=== PATIENT | male | born 1940 | race Caucasian/White ===

== ENCOUNTER → 2020-01-24 15:38 | Outpatient (CLI) | payer MEDICARE, SELFPAY ==
--- NOTE | ~2020-01-24 | MR_ITS ---
EXAMINATION: MR lumbar spine wo con DATE: 01/24/2020 16:20 INDICATION: Lumbar radiculopathy. TECHNIQUE: Magnetic resonance imaging (MRI) of the lumbar spine was performed without intravenous con trast. Sequences included sagittal T2-weighted FSE, sagittal T2-weighted FS FSE, sagittal T1-weighted FSE, and axial T2-weighted FSE. COMPARISON: Lumbar spine MRI 11/30/2016 FINDINGS: There is 9 degrees dextrocurvature of lumbar spine. There is 4 mm retrolisthesis of L1 on L 2 and L2 on L3, 3 mm anterolisthesis of L3 on L4, 9 mm anterolisthesis of L4 on L5, and 3 mm retrolis thesis of L5 on S1. There is severely decreased disc height from L1-L2 through L3-L4, moderately decr eased disc height at L4-L5, and severely decreased disc height at L5-S1. The distal spinal cord signa l intensity is normal. The conus medullaris is at L1-L2. The following disc levels are specifically d iscussed: L1-L2: The disc is bulging and has an annular fissure. There is moderate right and mild left facet marlon int osteoarthritis. There is mild bilateral neural foraminal stenosis. There is mild central canal st enosis. L2-L3: The disc is bulging and has an annular fissure. There is moderate right and mild left facet marlon int osteoarthritis. There is mild right and moderate left neural foraminal stenosis. There is mild ce ntral canal stenosis. L3-L4: The disc is bulging and has an annular fissure. There is severe bilateral facet joint osteoart hritis. There is mild bilateral neural foraminal stenosis. There is mild central canal stenosis. L4-L5: The disc is bulging and has an annular fissure. There is severe bilateral facet joint osteoart hritis. There is mild bilateral neural foraminal stenosis. There is severe central canal stenosis. L5-S1: The disc is bulging and has an annular fissure. There is mild bilateral facet joint osteoarthr itis. There is mild bilateral neural foraminal stenosis. There is mild central canal stenosis. IMPRESSION: 1. Severe lumbar spondylosis, worsened from 11/30/2016. Reviewed, dictated and finalized at location A.
== END ==
PROVIDERS: PCP Internal Medicine; Visit Provider Nurse Practitioner Adult Health
DX: M47.26 Other spondylosis with radiculopathy, lumbar region (principal)
CPT/HCPCS: 72148

== ENCOUNTER 2020-03-07 15:04 | Outpatient (CLI) | payer MEDICARE, SELFPAY ==
--- NOTE | ~2020-03-07 | XR_ITS ---
EXAMINATION: XR hip RT min 3V w AP pelvis INDICATION: Right hip pain TECHNIQUE: AP view of the pelvis and three views of the right hip were obtained. COMPARISON: None available FINDINGS: Bone alignment is normal. There is no fracture. There is severe spondylosis of the visualiz ed lumbar spine. Phleboliths are noted in the pelvis. IMPRESSION: 1. No acute osseous abnormality. Reviewed, dictated and finalized at location A.
--- NOTE | ~2020-03-07 | XR_ITS ---
EXAMINATION: XR lumbar spine 6V w bending DATE: 03/07/2020 15:44 INDICATION: Back pain after fall TECHNIQUE: Anteroposterior, lateral in neutral, flexion and extension, and bilateral oblique views of the lumbar spine, and cone-down lateral view of the lumbosacral junction were obtained. COMPARISON: MRI, 01/24/2020 FINDINGS: There are 12 mm of anterolisthesis of L4 on L5. There are 4 mm of retrolisthesis of L2 on L 3. No laxity is present with flexion or extension. There is severe loss of intervertebral disc space height at L1-2, L2-3, L3-4, and L5-S1. There is moderate loss of intervertebral disc space height at L4-5. The vertebral body heights are normal. Small degenerative osteophytes project from the anterior endplates of multiple vertebral bodies. Calcified atherosclerosis is noted. There is severe facet os teoarthritis throughout the lumbar spine. Calcified atherosclerosis is noted. There is large volume o f colonic stool. IMPRESSION: 1. Severe lumbar spondylosis without acute findings or significant interval change. Reviewed, dictated and finalized at location A. IMPRESSION: 1. Severe lumbar spondylosis without acute findings or significant interval rosanne nge.
== END 2020-03-07 15:05 | disposition home or self-care (01) ==
PROVIDERS: PCP Internal Medicine; Visit Provider Physician Assistant
DX: M25.551 Pain in right hip (principal); M47.896 Other spondylosis, lumbar region
CPT/HCPCS: 72114; 73502

== ENCOUNTER 2020-03-11 12:40 | Outpatient (CLI) | payer MEDICARE, SELFPAY ==
--- NOTE | ~2020-03-11 | MR_ITS ---
EXAMINATION: MR brain/brain stem wo con DATE: 03/11/2020 13:46 INDICATION: Unspecified injury of head, initial encounter. TECHNIQUE: Magnetic resonance imaging (MRI) of the brain and brainstem was performed without intraven ous contrast. Sequences included sagittal and axial T1-weighted FSE, axial diffusion-weighted FS EPI, axial T2*-weighted GRE, axial T2-weighted FLAIR Propeller, and axial T2-weighted Propeller. Apparent diffusion coefficient (ADC) maps were created. COMPARISON: None. FINDINGS: There are scattered areas of nonspecific increased T2-weighted signal intensity in the cere bral white matter, which is within normal limits for the patient's age. There is no intracranial hemo rrhage, acute infarction, or abnormal intracranial mass lesion. The ventricles are normal in size. Th ere is mild mucosal thickening in the ethmoid sinuses. There are likely changes of ocular lens replac ement surgeries. The mastoid air cells are normal. IMPRESSION: 1. Normal aging brain. Reviewed, dictated and finalized at location B. IMPRESSION: 1. Normal aging brain.
== END 2020-03-11 12:41 | disposition home or self-care (01) ==
PROVIDERS: PCP Internal Medicine; Visit Provider Physician Assistant
DX: S09.90XA Unspecified injury of head, initial encounter (principal)
CPT/HCPCS: 70551

== ENCOUNTER 2020-04-26 07:54 | Outpatient (NON) | payer MEDICARE, SELFPAY ==
[2020-04-26 18:59] LABS: SARS-CoV-2 RNA PCR Negative
== END 2020-04-26 07:55 ==
PROVIDERS: PCP Internal Medicine
DX: Z01.812 Encounter for preprocedural laboratory examination (principal); Z20.828 Contact with and (suspected) exposure to other viral communicable diseases
CPT/HCPCS: 87635; C9803; U0003

== ENCOUNTER 2020-09-17 13:50 | Outpatient (CLI) | payer MEDICARE, SELFPAY | END 2020-09-17 13:51 | disposition home or self-care (01) | LOC: ANHCOVIDVC 13:50 | PROVIDERS: PCP Internal Medicine | DX: Z23 Encounter for immunization (principal) | CPT/HCPCS: 0001A; 91300 ==

== ENCOUNTER 2020-10-08 13:41 | Outpatient (CLI) | payer MEDICARE, SELFPAY | END 2020-10-08 13:42 | disposition home or self-care (01) | LOC: ANHCOVIDVC 13:41 | PROVIDERS: PCP Internal Medicine | DX: Z23 Encounter for immunization (principal) | CPT/HCPCS: 0002A; 91300 ==

== ENCOUNTER → 2020-12-12 12:29 | Outpatient (CLI) | payer MEDICARE, SELFPAY ==
--- NOTE | ~2020-12-12 | MR_ITS ---
. EXAMINATION: MR lumbar spine wo con DATE: 12/12/2020 13:17 INDICATION: Lumbar radiculopathy. TECHNIQUE: Magnetic resonance imaging (MRI) of the lumbar spine was performed without intravenous con trast. Sequences included sagittal T2-weighted FSE, sagittal STIR FSE, sagittal T1-weighted FSE, and axial T2-weighted FSE. COMPARISON: Lumbar spine MRI 01/24/2020 FINDINGS: There is 9 degrees dextrocurvature of lumbar spine. There is 3 mm anterolisthesis of L1 on L2 and L2 on L3, 3 mm anterolisthesis of L3 on L4, 6 mm anterolisthesis of L4 on L5, and 3 mm retroli sthesis of L5 on S1. There are changes of posterior fusion procedure from L3 to L5 with pedicle screw s. Vertebral body heights are normal. There is severely decreased disc height at L1-L2, L2-L3, and L5 -S1, moderately decreased disc height at L3-L4, and mildly decreased disc height at L4-L5 with endpla te remodeling. The distal spinal cord signal intensity is normal. The conus medullaris is at L1. The following disc levels are specifically discussed: L1-L2: The disc is bulging. There is severe bilateral facet joint osteoarthritis. There is moderate r ight and mild left neural foraminal stenosis. There is mild central canal stenosis. L2-L3: The disc is bulging. There is severe bilateral facet joint osteoarthritis. There is moderate b ilateral neural foraminal stenosis. There is mild central canal stenosis. L3-L4: The disc is bulging and has an annular fissure. There is no facet joint hypertrophy. There is mild bilateral neural foraminal stenosis. There is no central canal stenosis. There is posterior deco mpression. L4-L5: The disc is bulging and has an annular fissure. There is moderate bilateral facet joint hypert rophy. There is mild bilateral neural foraminal stenosis. There is no central canal stenosis. There i s posterior decompression. L5-S1: The disc is bulging and has an annular fissure. There is severe bilateral facet joint osteoart hritis. There is mild bilateral neural foraminal stenosis. There is mild central canal stenosis. IMPRESSION: 1. Severe lumbar spondylosis. 2. Posterior fusion procedure from L3 to L5. Reviewed, dictated and finalized at location A.
== END ==
PROVIDERS: PCP Internal Medicine; Visit Provider Nurse Practitioner Adult Health
DX: M54.17 Radiculopathy, lumbosacral region (principal); M47.816 Spondylosis without myelopathy or radiculopathy, lumbar region; Z98.1 Arthrodesis status
CPT/HCPCS: 72148

== ENCOUNTER 2022-08-13 13:18 | Outpatient (CLI) | payer OTHER, SELFPAY ==
--- NOTE | ~2022-08-13 | CT_ITS ---
EXAMINATION: CT abdomen pelvis w con DATE: 08/13/2022 14:28 INDICATION: Diverticulitis TECHNIQUE: Computed tomography (CT) of the abdomen and pelvis was performed with 100 mL Omnipaque-350 intravenous contrast. Automated exposure control and iterative reconstruction technique were employe d. The dose-length product was 484.24 mGy-cm. COMPARISON: 12/16/2017 FINDINGS: Mild bibasilar atelectasis. Heart size is normal. Atherosclerotic coronary artery calcific location. No pericardial or pleural effusion. Mild gynecomastia. Focal hepatic steatosis at the ligamentum gianna s. Gallbladder, spleen, bilateral adrenal glands and kidneys are normal. Small likely dystrophic calc ific lesion at the head of the otherwise normal-appearing pancreas which could represent sequela of c hronic pancreatitis. Small bowel and appendix are normal. There is mild colonic diverticulosis with a sigmoid predominance. There is no adjacent inflammatory change to suggest diverticulitis. A short se gment of the proximal sigmoid colon extends into a relatively wide mouthed left indirect inguinal her marisa without obstruction. Small fat-containing right direct and indirect inguinal hernias. Prostatomeg adam which impresses upon the base of the bladder. There are few small bladder stones. No free intrape ritoneal gas or fluid. No pathologically enlarged abdominal or pelvic lymphadenopathy. Mild lumbar de xtrocurvature with severe spondylosis. L3 and L4 laminectomies with L3 L5 instrumented posterior spin al fusion with bilateral vertical nicci and pedicle screw fixations. 5 mm retrolisthesis L4 on L5. IMPRESSION: 1. Herniation of a small segment of nonobstructed sigmoid colon into a moderate-sized left inguinal h ernia. 2. Additional small fat-containing right direct and indirect inguinal hernias. 3. Sigmoid diverticulosis. 4. Prostatomegaly. 5. A few bladder stones. Reviewed, dictated and finalized at location B. [employer] IMPRESSION: 1. Herniation of a small segment of nonobstructed sigmoid colon into a moderate -sized left inguinal hernia. 2. Additional small fat-containing right direct and indirect inguinal hernias. 3. Sigmoid diverticulosis. 4. Prostatomegaly. 5. A few bladder stones.
[2022-08-13 14:20] LABS: Estimated Glomerular Filt Rate > 60
== END 2022-08-13 13:19 | disposition home or self-care (01) ==
PROVIDERS: PCP Internal Medicine; Visit Provider Internal Medicine
DX: K57.92 Diverticulitis of intestine, part unspecified, without perforation or abscess without bleeding (principal); K40.20 Bilateral inguinal hernia, without obstruction or gangrene, not specified as recurrent; N40.0 Benign prostatic hyperplasia without lower urinary tract symptoms; N21.0 Calculus in bladder
CPT/HCPCS: 74177; Q9967

== ENCOUNTER 2022-08-24 10:09 | Outpatient (CLI) | payer OTHER, SELFPAY ==
--- NOTE | 2022-08-24 10:19 | ECG_ITS ---
Measurements Intervals Basco Rate: 63 P: 51 LA: 209 QRS: 30 QRSD: 102 T: 28 QT: 401 QTc: 413 Interpretive Statements SINUS RHYTHM NO PREVIOUS ECG AVAILABLE FOR COMPARISON Electronically Signed On 08-24-2022 14:53:51 [employer]JECTS REPAIRER by Shawna Sharp M.D.
== END 2022-08-24 10:10 | disposition home or self-care (01) ==
LOC: ANHSURGERY 10:14
PROVIDERS: PCP Internal Medicine; Visit Provider Surgery
DX: Z01.818 Encounter for other preprocedural examination (principal); E78.00 Pure hypercholesterolemia, unspecified; K40.30 Unilateral inguinal hernia, with obstruction, without gangrene, not specified as recurrent
CPT/HCPCS: 36415; 86850; 86900; 86901; 93005

== ENCOUNTER 2022-08-25 00:59 | Day surgery (SDC) | payer OTHER, SELFPAY ==
--- NOTE | 2022-08-19 15:46 | PC.NURSE ---
Report to the Outpatient Waiting Room, entrance under the green pavilion located off [facility], at time __1100 on date ___08/27/22____. Planned Procedure Time: __1300 . Time changes happen often and if your time is changed the preop area will call you the afternoon before. - You and your visitor will be asked to self-screen and do not enter if you have any COVID symptoms. - Only one visitor is requested with a max of two and NO children visitors are allowed at this time. - The patient visitor may be requested to leave or wait in car when not with patient due to distancing restrictions. - A mask is optional within the hospital at this time. Patients may have clear liquids (water, carbonated beverages, clear teas, apple juice) until 3 hours prior to surgery with a maximum of 20 ounces. - No food from midnight until time of surgery - Infants may have breast milk until 4 hours before surgery, formula 6 hours prior to surgery. - Children will be allowed to drink immediately following surgery. If applicable, please bring a bottle or sippy cup to assist with drinking. Juice, water, soda, and popsicles are readily available. For infants on formula, please bring formula the day of surgery. Pacifiers are allowed. Take the following medications with a SIP of water the morning of surgery: __GABAPENTIN, HYDROCODONE IF NEEDED FOR PAIN.EYE DROPS DO NOT STOP ANY OF YOUR OTHER PRESCRIPTION MEDICATIONS PRIOR TO SURGERY ?EXCEPT THE FOLLOWING Medications to discontinue per physician ____ALL VITAMINS AND SUPPLEMENTS 3 DAYS PRE OP . LAST DOSE 08/23/22 HIBICLENS SHOWER MORNING OF SURGERY Please no make-up, nail australian, hairspray, perfume, deodorant, or body powder the day of surgery. No jewelry (including any body piercings) or valuables the day of surgery, leave them at home. Please take a shower or bath the night before, or the morning of, surgery with an antibacterial soap. Wear comfortable, loose fitting clothing. Children are encouraged to wear pajamas. - Jewelry must be removed prior to entering the operating room. Rings and piercings that are not removed may be cut off. - The hospital will not accept responsibility for valuables. - Please leave all valuables, including medications, at home the day of surgery. If you are going home after surgery, a licensed courtesy car driver must drive you home. - NO public transportation without another adult if you receive anesthesia. - We recommend that an adult stay with you for 24 hours following discharge. - We also recommend that you do not drive, make important decision, drink alcoholic beverages, or take any drugs that were not prescribed by your health care provider for at least 24 hours after your discharge time. For Pediatric surgeries, we recommend two adults accompany the child home. Follow any additional instructions given to you from your surgeon. If you or anyone in your household have experienced Covid symptoms in the past week, please notify your surgeon or the nurse liaison at the phone number below for possible testing. Telephone instructions given to __PATIENT and asked if any additional questions and then verbalized understanding. Patient advised to call surgeon office or pre surgery nurse liaison [phone] if any additional questions.
[2022-08-19 15:54] VITALS: BMI 23.1
--- NOTE | 2022-08-24 07:42 | PC.NURSE ---
Report to the Outpatient Waiting Room, entrance under the green pavilion located off [facility], at time __0930 on date __08/25/22 . Planned Procedure Time: 1130 . Time changes happen often and if your time is changed the preop area will call you the afternoon before. - You and your visitor will be asked to self-screen and do not enter if you have any COVID symptoms. - Only one visitor is requested with a max of two and NO children visitors are allowed at this time. - The patient visitor may be requested to leave or wait in car when not with patient due to distancing restrictions. - A mask is optional within the hospital at this time. Patients may have clear liquids (water, carbonated beverages, clear teas, apple juice) until 3 hours prior to surgery with a maximum of 20 ounces. - No food from midnight until time of surgery - Infants may have breast milk until 4 hours before surgery, formula 6 hours prior to surgery. - Children will be allowed to drink immediately following surgery. If applicable, please bring a bottle or sippy cup to assist with drinking. Juice, water, soda, and popsicles are readily available. For infants on formula, please bring formula the day of surgery. Pacifiers are allowed. Take the following medications with a SIP of water the morning of surgery: ___GABAPENTIN,HYDROCODONE IF NEEDED FOR PAIN,EYE DROPS DO NOT STOP ANY OF YOUR OTHER PRESCRIPTION MEDICATIONS PRIOR TO SURGERY ?EXCEPT THE FOLLOWING Medications to discontinue per physician ____ALL VITAMINS/SUPPLEMENTS 3 DAYS PRE OP . LAST DOSE 08/22/22 HIBICLENS SHOWER MORNING OF SURGERY Please no make-up, nail portuguese, hairspray, perfume, deodorant, or body powder the day of surgery. No jewelry (including any body piercings) or valuables the day of surgery, leave them at home. Please take a shower or bath the night before, or the morning of, surgery with an antibacterial soap. Wear comfortable, loose fitting clothing. Children are encouraged to wear pajamas. - Jewelry must be removed prior to entering the operating room. Rings and piercings that are not removed may be cut off. - The hospital will not accept responsibility for valuables. - Please leave all valuables, including medications, at home the day of surgery. If you are going home after surgery, a licensed regional driver must drive you home. - NO public transportation without another adult if you receive anesthesia. - We recommend that an adult stay with you for 24 hours following discharge. - We also recommend that you do not drive, make important decision, drink alcoholic beverages, or take any drugs that were not prescribed by your health care provider for at least 24 hours after your discharge time. For Pediatric surgeries, we recommend two adults accompany the child home. Follow any additional instructions given to you from your surgeon. If you or anyone in your household have experienced Covid symptoms in the past week, please notify your surgeon or the nurse liaison at the phone number below for possible testing. Telephone instructions given to ___PATIENT and asked if any additional questions and then verbalized understanding. Patient advised to call surgeon office or pre surgery nurse liaison [phone] if any additional questions.
[2022-08-25] VITALS (10 sets, daily range): BP systolic 130–150; BP diastolic 69–95; PULSE 59–84; RESP 12–18; TEMP 36.6; O2SAT 98–100
--- NOTE | 2022-08-25 10:14 | WPDANESEPPF ---
Anes - Initial Pre Proc Eval Procedure: Operation Date: 08/25/22 11:30 Proposed Procedures p Laparoscopic Bilateral Inguinal Hernia Repair with Mesh, Davinci Assisted - Theo Gambino DO Date/Time: 08/25/22 10:14 Surgeon: Theo Gambino DO Pre Op Diagnosis: incarcerated left inguinal hernia, red rt ing michael Patient Data Age: 82 Gender: M Height: 1.78 m Weight: 73.1 kg Allergies Allergy/AdvReac Type Severity Reaction Status Date / Time No Known Allergies Allergy Verified 08/25/22 10:10 Home Medications Medication Instructions Recorded Confirmed Type alprazolam 1 mg tablet 1 mg PO HS 06/19/19 08/24/22 History dorzolamide 22.3 mg-timolol 6.8 1 drp EACH EYE DAILY 06/19/19 08/24/22 History mg/mL eye drops gabapentin 600 mg tablet 600 mg PO BID 06/19/19 08/24/22 History hydrocodone 7.5 mg-acetaminophen 1 tablet PO Q6-8H 06/19/19 08/24/22 History 325 mg tablet hydrocortisone 2.5 % topical cream 1 applic RECTAL BID PRN 08/24/19 08/24/22 Rx with perineal applicator hemorrhoids #30 grams (Proctozone-HC) cholecalciferol (vitamin D3) 25 3,000 unit PO DAILY 09/03/19 08/24/22 History mcg (1,000 unit) capsule jnatdddghmv-gslbinzyt-vds C-Mn 500 1 cap PO DAILY 09/03/19 08/24/22 History mg-400 mg capsule (Glucosamine Chondroitin Maximum Strength) magnesium 250 mg tablet 250 mg PO DAILY 09/03/19 08/24/22 History multivitamin (Multiple Vitamins 1 tablet PO DAILY 09/03/19 08/24/22 History tablet) saw palmetto 500 mg capsule 500 mg PO BID 09/03/19 08/24/22 History testosterone cypionate 100 mg/mL 50 mg IM MONTHLY 09/03/19 08/24/22 History intramuscular oil nortriptyline 25 mg capsule 25 mg PO HS 09/04/19 08/24/22 History travoprost 0.004 % eye drops 1 drop ophthalmic (eye) QPM 03/07/20 08/24/22 History (Travatan Z) zinc acetate 50 mg (zinc) capsule 50 mg PO DAILY 03/07/20 08/24/22 History (Galzin) mecobalamin (vitamin B12) 5,000 5,000 mcg PO DAILY 09/30/21 08/24/22 History mcg disintegrating tablet cyanocobalamin (vitamin B-12) 5,000 mcg PO DAILY 08/19/22 08/24/22 History 5,000 mcg capsule policosanol 10 mg tablet 10 mg PO DAILY HIGH CHOLESTEROL 08/19/22 08/24/22 History pygeum africanum 50 mg capsule 100 mg PO DAILY 08/19/22 08/24/22 History methocarbamol 750 mg tablet 1,500 mg PO TID PRN muscle spasm 08/24/22 08/24/22 Rx #180 tabs Patient hx anesthesia problems: none Family hx anesthesia problems: none Results Review: All pre-operative results and documents have been reviewed as part of the pre-operative evaluation. [facility] Past Medical History Medical History Chronic pain syndrome Hyperlipidemia Neuropathy SHANNA (obstructive sleep apnea) Surgical History Surgical History History of back surgery Family History Family History Father Patient's father is Social History Social History Smoking packs per day: 1 Smoking cigarettes per day: 20.0 Years smoked: 12 Smoking pack-years: 12.00 Smoking status: Former smoker Tobacco type: cigarettes Second hand tobacco smoke exposure: No Smoking end date: 07/18/87 Alcohol intake: current Lack of Transportation: No Lack of Food: Never True Current Housing: I Have Housing Concerned About Future Housing: No Difficulty Paying Gas/Electric Bills: No Difficulty Paying for Meds: No Currently Unemployed: No Education: Master's Degree or Higher Difficulty w/ Childcare or Family Care: No Living arrangements: with family Gender identity (if verbalized by the patient): Male Spiritual care concerns: No Anes - Eval Final PreProcedure Day of Procedure 08/25/22 10:14 Patient weight: normal Heart: regular rate and rhythm Lungs:
[2022-08-25] MEDS: LACTATED RINGERS 1,000 ML 30 ML IV CONT ×2 (10:40→14:13)
[2022-08-25] MEDS: ACETAMINOPHEN 500 MG TABLET 1000 MG PO (10:40)
[2022-08-25] MEDS: KETOROLAC 15 MG/ML VIAL (*BKC) IV PUSH (11:04)
--- NOTE | 2022-08-25 11:21 | WPDHPUPDATE1 ---
History and Physical Update Update Date/Time: 08/25/22 11:21 History and Physical has been reviewed, including an updated exam of the patient. There are NO changes in the patient's condition. Risks, benefits, and alternatives have been discussed and questions answered. Patient agrees to proceed with procedure.
[2022-08-25] MEDS: ceFAZolin 2 GM/D5W 50 ML 2 GM/50 ML BAG IVPB (11:49)
[2022-08-25] MEDS: BUPIVACAINE/EPINEPHRINE 0.5% 10 ML VIAL 30 ML INFILTRATE (12:35)
[2022-08-25] MEDS: fentaNYL CITRATE INJ (*CRX) 100 MCG/2 ML VIAL 25 MCG IV PUSH ×8 (14:25→15:03)
--- NOTE | 2022-08-25 14:40 | W.PM.PROC2 ---
Procedure Note - Detailed Date of Procedure 08/25/22 Pre-op Diagnosis incarcerated left inguinal hernia, reducible right inguinal hernia Post-op Diagnosis Same (indirect LIH, direct RIH) Procedure Performed Laparoscopic bilateral inguinal hernia repair with mesh, da Benny assisted Surgeon Theo Gambino, DO Anesthesia General and Local (0.5% bupivacaine with epinephrine) Indications This is an 82-year-old man who presented with a large left inguinal hernia. He had noticed the hernia for several months, but it had worsened over the past couple weeks. He was sent for a CT abdomen and pelvis by his PCP 08/13/2022 and this showed evidence of a left inguinal hernia containing a loop of nonobstructed sigmoid as well as a small fat containing right inguinal hernia. He was seen in the office on 08/19/2022 and was found to have a large left inguinal hernia that was initially incarcerated with bowel. After manual pressure in recumbent position for about 10 minutes, I was able to reduce the hernia. This appeared to be high risk for recurrent incarceration. Discussions were made with the patient about treatment options and decision was made to proceed with robotic assisted laparoscopic bilateral inguinal hernia repair with mesh. Findings Laparoscopic bilateral inguinal hernia repair was performed. The incarcerated left inguinal hernia did appear to reduce once the patient was laying supine and under anesthesia. Upon inspecting the abdomen laparoscopically, the sigmoid colon all appeared healthy and viable. He was found to have a large indirect left inguinal hernia and a small direct right inguinal hernia. A robotic assisted transabdominal preperitoneal approach was utilized for repair. Large right and left Bard 3DMax mid mesh was placed overlying each myopectineal orifice. No specimens were obtained for pathology. Description of Procedure Procedure as well as risks, benefits, and alternatives were discussed with the patient. Written consent was obtained and placed in chart prior to procedure. Patient was brought back to surgical suite. He was placed supine on operating table. Time-out was done to confirm patient and procedure. He was then intubated by Anesthesia Department. His abdomen was prepped and draped in sterile fashion using chlorhexidine prep. 0.5% bupivacaine with epinephrine was infiltrated at each location for incision. A 12 millimeter transverse incision was made just superior to the umbilicus using a 15 blade scalpel. Blunt dissection was carried out down to the linea alba. A vertical incision was made at the linea alba using a 15 blade scalpel. The peritoneum was then bluntly entered. A 12 millimeter trocar was inserted and carbon dioxide insufflation was used to create a pneumoperitoneum. A camera was inserted and the abdominal cavity was inspected. The patient was placed in slight Trendelenburg position. An 8 millimeter incision was made on the right lateral abdomen and an 8 millimeter trocar was inserted under direct visualization. Another 8 millimeter incision was made in the left lateral abdomen and an 8 millimeter trocar was inserted under direct visualization. The robotic arms were brought up to the patient's bedside and secured to the ports. The camera and instruments were inserted. I then moved over to the robotic console and took control of the camera and instruments. After careful inspection of the abdominal cavity, I began scoring the peritoneum along the left lower quadrant using scissors with electrocautery. The preperitoneal plane was entered and this was carefully dissected caudally along the inferior epigastric vessels. Careful dissection with scissors with electrocautery and blunt dissection was used to continue this dissection. I dissected far enough laterally to allow for mesh placement, and also dissected medially to identify the pubic arch and Reagan's ligament. The hernia sac was identified and carefully dissect
[2022-08-25] MEDS: oxyCODONE HCL (*CRX) 5 MG TAB IR PO (15:45)
== END 2022-08-25 16:25 | disposition home or self-care (01) ==
PROVIDERS: PCP Internal Medicine; Visit Provider Surgery
PROC: 8E0Y4CZ Robotic Assisted Procedure of Lower Extremity, Percutaneous Endoscopic Approach (ICD-10-PCS; CPT 49650; principal; 2022-08-25 11:30)
DX: K40.30 Unilateral inguinal hernia, with obstruction, without gangrene, not specified as recurrent (principal); K40.90 Unilateral inguinal hernia, without obstruction or gangrene, not specified as recurrent; E78.5 Hyperlipidemia, unspecified; G62.9 Polyneuropathy, unspecified; G47.33 Obstructive sleep apnea (adult) (pediatric); Z87.891 Personal history of nicotine dependence
CPT/HCPCS: 49650; S2900; 36415; 86850; 86900; 86901; 93005; A9270; C1781; J0690; J1100; J1885; J2405; J2704; J2710; J3010; J7120

== ENCOUNTER → 2023-04-08 11:15 | Outpatient (CLI) | payer OTHER, SELFPAY ==
--- NOTE | ~2023-04-08 | XR_ITS ---
Clinical Indication: Cough PA and lateral views of the chest: Comparison: 03/13/2013 Findings: There is left basilar airspace consolidation. Right lung clear. Cardiomediastinal silhouet te is within normal limits. Bones and soft tissues are unremarkable. Impression: Left basilar airspace consolidation, suspicious for pneumonia. Follow-up to radiographic resolution i s advised. Reviewed, dictated and finalized at location M. Impression: Left basilar airspace consolidation, suspicious for pneumonia. Follow-up to rad iographic resolution is advised.
== END ==
PROVIDERS: PCP Internal Medicine; Visit Provider Physician Assistant
DX: R05.9 Cough, unspecified (principal); R91.8 Other nonspecific abnormal finding of lung field
CPT/HCPCS: 71046

== ENCOUNTER → 2023-05-06 15:11 | Outpatient (CLI) | payer OTHER, SELFPAY ==
--- NOTE | ~2023-05-06 | XR_ITS ---
XR chest 2V DATE: 05/06/2023 15:24 INDICATION: Pneumonia TECHNIQUE: 2 views COMPARISON: 04/08/2023 2 view chest FINDINGS: There is residual but diminished bibasilar lower lobe consolidation since 04/08/2023. The remaining lung ferris appear clear. Normal heart size. No pleural effusion or pulmonary vascular congestion or pneumothorax is detected. IMPRESSION: Bibasilar lower lobe patchy consolidation, improved since 04/08/2023 Reviewed, dictated and finalized at location B.
== END ==
PROVIDERS: PCP Physician Assistant; Visit Provider Physician Assistant
DX: J18.9 Pneumonia, unspecified organism (principal)
CPT/HCPCS: 71046

== ENCOUNTER 2024-12-21 16:32 | Observation (INO) | payer MEDICARE, SELFPAY ==
[2024-12-21] VITALS (10 sets, daily range): BP systolic 120–146; BP diastolic 64–77; PULSE 80–95; RESP 16–20; TEMP 36.3–36.9; O2SAT 95–100
--- NOTE | ~2024-12-21 | CT_ITS ---
EXAMINATION: CT abdomen pelvis w con DATE: 12/21/2024 20:26 INDICATION: periumbilical abd pain TECHNIQUE: Computed tomography (CT) of the abdomen and pelvis was performed with 100 mL Omnipaque-350 intravenous contrast. Automated exposure control and iterative reconstruction technique were employe d. The dose-length product was 414.77 mGy-cm. COMPARISON: 08/13/2022. FINDINGS: Lower thorax: 10 mm (image 15/34) right lower lobe and 5 mm (image 21/54) left lower lobe irregular f oci of consolidation versus nodular density in a background of bilateral basilar scarring. Liver: Normal. Biliary/Gallbladder: Gallbladder is normal. No bile duct dilation. Pancreas: No mass or duct dilation. Small dystrophic calcification at the pancreatic head. Spleen: Normal. Adrenals:No mass. Kidneys: No suspicious mass, obstructing stone, or hydronephrosis. Nonobstructing left midpole calcif ication. Subcentimeter bilateral renal hypodensities too small to characterize but most likely repres ent cysts. GI tract: Small hiatal hernia. No small or large bowel dilation. No large bowel dilation. Multiple lo ops of dilated small bowel in the left abdomen, with bowel wall hyperemia and mild wall thickening. D iverticulosis without diverticulitis. Mesentery/Peritoneum: No ascites, mass, or free air. Retroperitoneum: No mass. Mild fusiform dilation of the infrarenal abdominal aorta. Pelvis: Distended urinary bladder with mild wall thickening multiple intraluminal calcifications in t he urinary bladder. Prostatomegaly. Soft Tissues: Small uncomplicated fat-containing umbilical hernia. Moderate bilateral fat-containing uncomplicated appearing inguinal hernias. Bones: No acute osseous finding. Stable posterior lumbar fusion hardware. Stable multilevel lumbar v ertebral body sclerosis, probably secondary to degenerative changes. Stable grade 1 anterolisthesis a t L4-5. IMPRESSION: Small foci of consolidation in the bilateral lower lobes versus irregular nodules, recommend low-dose noncontrast CT of the chest follow-up in 3 months to evaluate for resolution. Multiple loops of dilated small bowel in the left abdomen, without a specific transition point. This may represent ileus, possibly with enteritis. Early obstruction is not excluded. Urinary bladder distention with mild wall thickening may be secondary to cystitis and/or outlet obstr uction from prostatomegaly. Multiple bladder stones. Reviewed, dictated and finalized at location K. IMPRESSION: Small foci of consolidation in the bilateral lower lobes versus irregular nodul es, recommend low-dose noncontrast CT of the chest follow-up in 3 months to melody durant for resolution. Multiple loops of dilated small bowel in the left abdomen, without a specific t ransition point. This may represent ileus, possibly with enteritis. Early obstr uction is not excluded. Urinary bladder distention with mild wall thickening may be secondary to cystit is and/or outlet obstruction from prostatomegaly. Multiple bladder stones.
--- OUTSIDE RECORDS SUMMARY | 2024-12-21 16:34 | XMS_ITS | Clinical Summary ---
Author Organization [facility] Address [address], [facility] [address] [place] [address] Phone Care Team Providers Care Beater Out Name Role Phone Martin Jimenezcale Lane DO Primary Care Provider [phone] Allergies No known active allergies Medications HYDROcodone-acet aminophen (NORCO) 7.5-325 MG Tablet 3 times daily. Active ALPRAZolam (XANAX) 1 MG Tablet 0 10/26/2017 Active tamsulosin (FLOMAX) 0.4 MG Capsule 10/26/2017 Active gabapentin (NEURONTIN) 600 MG Tablet 11/21/2017 Active cyclobenzaprine (FLEXERIL) 10 MG Tablet 10/26/2017 Active predniSONE (DELTASONE) 50 MG Tablet 140 mg Every other day. 12/12/2017 Active predniSONE (DELTASONE) 10 MG Tablet 10 mg Every other day. 11/17/2017 Active pantoprazole (PROTONIX) 40 MG Tablet Delayed Response Take 40 mg by mouth 2 times daily. Active Sulfamethoxazole -Trimethoprim (SMZ-TMP DS PO) Take by mouth. Active nortriptyline (PAMELOR) 25 MG CapsuleIndicatio ns:4 capsules at bedtime Take 100 mg by mouth nightly. Active Active Problems Problem Noted Date Diagnosed Date Dyspepsia Colon polyps Rectal bleeding Family History Medical History Relation Name Comments No Known Problems Father No Known Problems Mother Relation Name Status Comments Father Mother Social History Tobacco Use Types Packs/Day Years Used Date Smoking Tobacco: Former Cigarettes 1 20 0 12/13/1968 - 12/13/1988 Smokeless Tobacco: Never Alcohol Use Standard Drinks/Week Comments Yes 0 (1 standard drink = 0.6 oz pur e alcohol) Rare. Sex and Gender Information Value Date Recorded Sex Assigned at Not on file Legal Sex Male 7:18 PM CDT Gender Identity Not on file Sexual Orientation Not on file Last Filed Vital Signs Vital Sign Reading Time Taken Comments Blood Pressure 122/86 12/13/2017 1:54 PM CDT Pulse 90 12/13/2017 1:54 PM CDT Temperature 36.6 C (97.8 F) 12/13/2017 1:54 PM CDT Respiratory Rate 18 12/13/2017 1:54 PM CDT Oxygen Saturation 96% 12/13/2017 1:54 PM CDT Inhaled Oxygen Concentration - - Weight 74.6 kg (164 lb 6.4 oz) 12/13/2017 1:54 P M CDT Height 177.8 cm (5' 10) 12/13/2017 1:54 PM CDT Body Mass Index 23.59 12/13/2017 1:54 PM CDT Plan of Treatment Health Maintenance Due Date Last Done Comments Hepatitis C Virus (HCV) Screening 1940 TdaP Immunization 1940 Zoster Immunization (1 of 2) 1990 Respiratory Syncytial Virus (RSV) Immunization (Adult) (1 - 1-dose 75+ series) 2015 Pneumococcal Immunization (50+ years) (2 of 2 - PPSV23) 08/18/2015 08/18/2014 Influenza Immunization (#1) 2024 10/0 11/2016, 03/23/2016, 04/16/2014, Additional history exists SARS-COV-2 Immunization ( season) 2024 06/23/2021, 10/08/2020, 09/17/2020 Pneumococcal Immunization Combined Discontinued 08/18/2014 Hepatitis B Immunization Aged Out No longer eligible based on patient's age to complete this topic Meningococcal Immunization (ACWY) Aged Out No longer eligible based on patient's age to complete this topic Rotavirus Immunization Aged Out No lo nger eligible based on patient's age to complete this [place] [address] MEDICARE [employer] Care Teams Beater Out Relationship Specialty Start Date End Date Jimenez Salazar DO [address] [place] [address] PCP - General Internal Medicine 12/13/17
--- OUTSIDE RECORDS SUMMARY | 2024-12-21 16:34 | XMS_ITS ---
Author Name Department of [facility] ([place] Organization Department of [facility] [place] Address [address] [place] [address] Insurance Providers: All historical and current Section Date Range: From patient's date of to the date document was created. This section includes the names of all active insurance providers for the patient. Insurance Provider Type of Coverage Plan Name Start of Policy Coverage End of Policy Coverage Group Number Member ID Insurance Provider's Telephone Number Policy Brand's Name Patient's Relationship to Policy Brand MEDICARE (WNR) MEDICARE (M) PART B Jul 18, 2009 PART B [id number] [employer] [place] PATIENT MEDICARE (WNR) MEDICARE (M) PART A Mar 18, 2005 PART A [id number] [employer] IN PATIENT Selected Encounter This section includes the information on record at [facility] for the Encounter. Date/Time Encounter Type Encounter Description Reason Provider Source November 28, 2024 10:11 AM Outpatient Encounter ADMIN PAT ACTIVTIES (MASNONCT) LAVERNE SIEGEL Encounter Template Text not used by [facility] Plan of Treatment: Future Appointments (+ 6 months) and Future Tests (+/- 45 days) The Plan of Treatment section includes future care activities for the patient from all [facility] treatmentfacilities. This section includes future appointments and future orders which are active, pending or scheduled. Future Appointments This section includes appointments that were scheduled to occur 6 months from the date of the Encounter, up to a maximum of 20 appointments. The data comes from all [facility] treatment facilities. Appointment Date/Time Appointment Type Appointme nt Facility Name November 30, 2024 02:30 PM AMBULATORY - MEDICINE [facility] Dec 27, 2024 12:30 PM AMBULATORY - SURGERY [facility] Encounter Notes: All associated encounter notes This section contains the clinical notes associated to the Encounter. Date/Time Encounter Note(s) Provider Source November 28, 2024 10:11 AM TELEHEALTH CONSULT : LOCAL TITLE: V15 [facility] DEVICE CONSULT RESULT STANDARD TITLE: TELEHEALTH CONSULT DATE OF NOTE: NOVEMBER 28, 2024@10:11 ENTRY DATE: NOVEMBER 28, 2024@10:11:16 AUTHOR: LAVERNE SIEGEL EXP COSIGNER: URGENCY: STATUS: COMPLETED Test call has been completed. [place] may now be scheduled for [facility]VC appointment. 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
--- OUTSIDE RECORDS SUMMARY | 2024-12-21 16:34 | XMS_ITS | Encounter Summary ---
Author Organization [facility] Address [address] [place] [address] Phone Care Team Providers Care Certification And Selection Specialist Name Role Phone Jimenez Salazar MD Primary Care Provider [phone] Leodan Hazel MD Unavailable Encounter Details Date Type Department Care Team (Late st Contact Info) Description 11/19/2020 Orders Only [facility] Scanning, Provider Social History Tobacco Use Types Packs/Day Years Used Date Smoking Tobacco: Former Smokeless Tobacco: Never Sex and Gender Information Value Date Recorded Sex Assigned at Not on file Legal Sex Male 8:22 PM 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 Gender Identity Not on file Sexual Orientation Not on file documented as of this encounter Plan of Treatment Not on file documented as of this encounter Procedures Procedure Name Priority Date/Time Associated Diagnosis Comments SCAN - LABS 11/19/2020 documented in this encounter Results * SCAN - LABS (11/19/2020) us Provider Scanning Final Result documented in this encounter Visit Diagnoses Not on filedocumented in this encounter 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
--- OUTSIDE RECORDS SUMMARY | 2024-12-21 16:34 | XMS_ITS ---
Author Name Department of [facility] ([place]) Organization Department of [facility] ([place]) Address [address] [place] [id number] Insurance Providers: All historical and current Section [...] PART B Jul 18, 2009 PART B [id number] EULOGIO ARNETT IN PATIENT MEDICARE (WNR) MEDICARE (M) PART A Mar 18, 2005 PART A [id number] EULOGIO ARNETT IN PATIENT Selected Encounter This section includes the information on record at [place] for the Encounter. Date/Time Encounter Type Encounter Description Reason Provider Source November 30, 2024 02:30 PM OFFICE O/P [facility] 60 MIN GENERAL INTERNAL MEDICINE ICD-10-CM Z77.29 Contact with and exposure to other hazardous substances LINUS GREEN Encounter Template Text not used by [place] Assessments - Encounter Diagnoses This section includes the primary and secondary diagnoses documented for the Encounter. Date/Time Primary/Secondary Diagnosis Diagnosis Name Provider Source November 30, 2024 04:04 PM PRIMARY Contact with and exposure to other hazardous substances LINUS GREEN I [facility] Plan of Treatment: Future Appointments (+ 6 months) and Future Tests (+/- 45 days) The Plan of Treatment section includes future care activities for the patient from all [place] treatmentfacilities. This section includes future appointments and future orders which are active, pending or scheduled. Future Appointments This section includes appointments that were scheduled to occur 6 months from the date of the Encounter, up to a maximum of 20 appointments. The data comes from all [place] treatment facilities. Appointment Date/Time Appointment Type Appointme nt Facility Name Dec 27, 2024 12:30 PM AMBULATORY - SURGERY [facility] Vital Signs: All taken on the encounter date This section contains inpatient and outpatient Vital Signs collected on the date of the Encounter. Date/Time Temperature Pulse Blood Pressure Respiratory Rate SP02 Pain Height Weight Body Mass Index Source November 30, 2024 03:29 PM 150/78 [facility] November 30, 2024 02:44 PM 163/79 [facility] November 30, 2024 02:27 PM 97.6 79 163/81 99 70 172.5 25 [facility] Encounter Notes: All associated encounter notes This section contains the clinical notes associated to the Encounter. Date/Time Encounter Note(s) Provider Source November 30, 2024 04:06 PM PRIMARY CARE MARTÍN RS: LOCAL TITLE: AGENT ORANGE FOLLOW UP LETTER [facility] STANDARD TITLE: PRIMARY CARE LETTERS DATE OF NOTE: NOVEMBER 30, 2024@16:06 ENTRY DATE: NOVEMBER 30, 2024@16:06:03 AUTHOR: LINUS GREEN COSIGNER: URGENCY: STATUS: COMPLETED [facility] [address] [place] [address] NOVEMBER 30, 2024 LUKE ARNETT [address] [facility] [place], [place] [address] Dear Luke Arnett, We wish to thank you for your recent participation in the Department of [place] Affairs [place] Health Registry. This effort assists us to serve you and other veterans who are concerned about the possible health problems which might have resulted from service in the [place] during the [place] era (between 1961 and 1974). No presumptive conditions of agent orange were noted on today's exam. Your blood pressure was elevated today. Please follow-up with your primary care provider on this and do your checks at home as well. If you are diagnosed with hypertension, this is a presumptive condition of [place] exposure, and you could file a claim with the VBA. Remember, this examination does not automatically initiate a claim for VA benefits. Also, this exam does not establish or concede exposure to [place] during your service. If you wish to file a claim for compensation to establish possible service connection, contact your nearest [place] Regional Office. [place] may pay compensation for current disability due to any injury or disease that was incurred, or was aggravated, during service. The condition does not have to be related to combat. If you need any further assistance, you may call one of the following toll-free numbers: 1. Veterans' Human Resources Intern: (for information on filing claims); 2. [facility]: 9-195-894-AXNZ (4617); or 3. [place] Helpline: . To receive health care, veterans generally must be enrolled with [place]. You may enroll at any time, if eligible. Additional information on enrollment, including enrollment forms and online applications can also be found on the Internet at http://www.nj.gov/elig/, or contact a Veterans Benefit Feed Grinder by calling the [place] toll-free number . An outreach program has been implemented in which [place] notifies all individuals listed in the [place] Registry of significant VA activities, including the health consequences of service during the [place] era. You are now automatically included in our [place] Registry and are to receive a quarterly newsletter published periodically by [place]'s [facility]. If you wish to obtain and/or read this publication via Internet, or if you have a change of address, please log on to the [facility] Web page [email or web address]/education/newslette [email or web address].asp . We trust this information is helpful to you. Once again, your participation in the Agent [place] Registry is appreciated. Respectfully, LINUS GREEN Physician Superintendent Horticulture Environmental Health Clinician LINUS GREEN I [facility] November 30, 2024 02:59 PM ENVIRONMENTAL HEAL TH CONSULT: LOCAL TITLE: ENVIRONMENTAL REGISTRY CONSULT NOTE [facility] STANDARD TITLE: ENVIRONMENTAL HEALTH CONSULT DATE OF NOTE: NOVEMBER 30, 2024@14:59 ENTRY DATE: NOVEMBER 30, 2024@14:59:26 AUTHOR: LINUS GREEN I EXP COSIGNER: URGENCY: STATUS: COMPLETED AGENT ORANGE ENVIRONMENTAL EXAM ___ Prior to the exam, the nature of the environmental exam was discussed, that it was an independent medical exam for research registry purposes and that the exam was not intended for diagnosis, treatment, or treatment recommendations. The [place] voiced understanding and all questions relating to the exam-type and content were addressed. The [place] Environmental Exam is based on the history given by the [place]. No Medical record review, chart review, or other supportive documentation was sought or used for the evaluation. The exam may include review of the chest X-ray, blood work, and EKG ordered as part of the documentation for the [place] exam. The is advised to follow up with a medical provider to discuss any potential or actual abnormalities in the test results (if completed) for possible diagnosis, treatment, or recommendations. [ X ] Consent for this evaluation was signed by the . Privacy statement was provided to . (An 'X' indicates the presence of the condition, unchecked indicates the absence of the condition.) LUKE ARNETT [phone] [address] [facility] [place], [place] [address] [phone] Current status: outpatient Sex:MALE Race:WHITE Ethnicity:NOT OR Age:84 Marital status: [ ] [ ] [ ] [ X ] [ ] Single, never [ ] Other: Branch of Service: [ X ] [employer] [ ] [place] [ ] [employer] [ ] [employer] [ ] [employer] [ ] [employer] Other: Location Description: [employer] [place] Location Served: [ ] [place] [ X ] [place] (1967 or 1970) [ ] [place] [ ] Other: Battalion/ Units [place] Served With: [facility] [employer] MICHAELA Location in country: [place] Exposure Period for Agent [place] (may be more than one) start and end dates: 07/1966 to 12/1967 Dates of Service: Entry into active duty date (start date): 10/08/1965 Discharge date (end date): 10/08/1967 Inducted at: [employer] [facility] where served: 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 Yes Which physical activities or exercises do you routinely participate? (ex. Walking, running, calisthenics, sports) Exercise - light weights, calf strengthening How often do you usually participate in this physical activity or exercise? [ ] 1x/week [ ] 2x/week [ ] 3x/week [ X ] > 3x/week How long do you usually participate in this physical activity or exercise? 45 min Habits: Tobacco Use: Do you currently smoke? No How many cigarettes do you smoke each day? 0 How old were you when you began smoking? Have you ever smoked cigarettes even occasionally? Yes When did you last stop? 1967 Do you use any other form(s) of tobacco? No If so, which one(s)? Do you live in a household where someone else smokes (second hand smoke exposure)? No Alcohol use: In the past year, how often did you drink any type of alcoholic beverage (included are liquors such as whiskey or gin, beer, wine coolers, and any other type of alcoholic beverage)? <1 day/week On average how may days did you drink? By a drink we mean at least half an ounce of absolute alcohol (e.g. 12 ounce can of beer, 5 ounce glass of wine, or a drink containing at least 1 shot of liquor) 0 Illicit or Recreational Substance Use: Do you currently use any substance, illegal or prescription, that is not prescribed by your medical doctor (i.e. marijuana, opioid, prescription medications)? 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 Cancer Exposures: Please mikal each as: 1. Definitely yes 2. Not Sure 3. Definitely no While in [place]/[employer] service the : 1. Was involved in handling/spraying Agent [place] No 2. Was in a recently sprayed area Yes 3. Was in contact with other herbicides Not sure Specify: 4. Was directly sprayed with Agent [place] No 5. Ate food/drank water that may have been contaminated w/ Agent [place] No Self-assessment/describe veterans health [ ] Very good [ X ] Good [ ] Fair [ ] Poor [ ] Very Poor What is/are your chief complaint/exposure(s) of most concern and related to this registry exam? Future Sickness Claimed Conditions (already claimed or to be claimed): [ ] Amyloid light-chain amyloidosis [ ] Chronic B-cell leukemia [ ] Diabetes type 2 [ ] Hodgkins disease [ ] Ischemic heart disease [ ] Multiple Myeloma [ ] Non-Hodgkins lymphoma [ ] Parkinsons Disease/Parkinsonism [ ] Prostate cancer [ ] Bladder cancer [ ] Hypothyroidism [ ] Monoclonal gammopathy of undetermined significance (MGUS) [ X ] Hypertension [ ] Respiratory cancers (Lung, trachea, larynx, bronchus) Specify: [ ] Soft tissue sarcoma (not osteosarcoma, chondrosarcoma, Kaposis sarcoma or mesothelioma) Specify: Within 1 year of exposure: [ ] Peripheral neuropathy, early-onset [ ] Porphyria Cutanea Tarda [ ] Chloracne Current Diagnoses: Lumbar radiculopathy M54.16 ?HTN I10 Low Testosterone E29.1 Glaucoma H40.9 GERD K21.9 Sleep apnea G47.30 Past medical and surgical history: Past medical history: Surgeries: L spine fusion Data: Number of biological children: 2 Have any of the Veterans children showed signs of defects? No TOTAL number of children with evidence of defects: 0 Any stillborn or miscarriages? No Any infertility? No Any infant ? No (Include age of mother for any + above) Symptoms: Symptoms Vet feels are related to Agent [place]: 1. Falls ICD 10 Code: R29.6 Year it started: 5900-6647 Is it still present? no Duration (months): 24 months MEDICAL HISTORY: Allergies: NKDA Childhood illnesses: [ ] Asthma [ X ] Measles [ ] Cancers [ X ] Other: Chickenpox [ ] Other: Serious Injuries: 1. Denies Current Medications: Vicodin Alprazolam 1 mg QHS Gabapentin 1200 mg TID Flexeril 10 mg TID prn Nortriptyline 50 mg 4 times per day Testosterone 200 mg injection every 7 days Travoprost 0.004% 1 drop in both eyes at bedtime Dorzol/Timolol 1 drop in both eyes twice daily Pantoprazole 20 mg take 2 daily Calcium 600 mg 3 times a day Magnesium 500 mg twice a day Methylcobalamin 5000 mcg once daily Zinc 50 mg daily Multivitamin Curtis-3 fish oil 950 mg twice daily Vitamin D3 2000 mg daily Policosanol 20 mg daily Pygeum 1000 mg twice daily Saw palmetto 1000 mg twice daily Taurine 500 mg daily Elena Gamma aminobutyric acid 500 mg daily Methyl CpG daily REVIEW OF SYSTEMS: General Health: [ X ] Denies current issues [ ] Unintended weight loss [ ] Unexplained fevers [ X ] Feels well (other than pain) [ ] Other: HEENT: [ X ] Denies current issues [ ] Other: Respiratory: [ ] Denies current issues [ ] Dyspnea [ ] Chronic cough [ X ] Other: Sleep apnea Cardiovascular: [ X ] Denies current issues [ ] Angina [ ] Other: GI: [ ] Denies current issues [ X ] Other: Mild, intermittent reflux. : [ ] Denies current issues [ X ] Other: Trouble starting Hemopoietic: [ X ] Denies current issues [ ] Bleeding [ ] Other: Lymphatic: [ X ] Denies current issues [ ] Swollen lymph nodes [ ] Other: Musculo-skeletal: [ ] Denies current issues [ X ] Chronic pain: Low back [ X ] Arthritis [ ] Other: Psychiatric: [ ] Denies current issues [ ] PTSD [ ] Depression [ X ] Other: Grief: 5 months ago Other: PHYSICAL EXAM: Vitals: Temp:97.6 F [36.4 C] (11/30/2024 14:27) BP:163/79 (11/30/2024 14:44) Pulse: 79 (11/30/2024 14:27) Resp: Weight: 172.5 lb [78.24 kg] (11/30/2024 14:27) Height:70 in [177.8 cm] (11/30/2024 14:27) inches Pulse ox: 99% (11/30/2024 14:27)% [place] declines exam: [ ] Yes [ X ] No General: [ X ] Alert, NAD, appears stated age. [ X ] No rashes or skin conditions noted on exam. [ X ] No cachexia or other abnormal weight/constitutional findings. [ ] Abnormal Findings: [ ] Not examined HEENT: [ X ] Normocephalic, nose, throat, TMs, and ear canals are clear. [ X ] No lymphadenopathy, no thyromegaly. [ X ] No JVD. [ ] Abnormal Findings: [ ] Not examined Cardiovascular: [ X ] Reg rate and rhythm [ X ] No murmur, no rub, no gallop. [ X ] No peripheral edema [ ] Peripheral radial pulses are normal. [ ] Abnormal Findings: [ ] Not examined Pulmonary: [ X ] Lung ferris are clear; No wheezes or rubs. [ X ] Aeration is normal. [ ] Abnormal Findings: [ ] Not examined Abdomen: [ X ] Nontender [ X ] No masses, no organomegaly [ X ] No ascites or distension [ ] Abnormal Findings: [ ] Not examined Extremities: [ X ] No edema [ ] No clubbing or cyanosis. [ ] Abnormal Findings: [ ] Not examined Neurologic: [ X ] No focal motor weakness [ ] No sensory loss or change. [ X ] Gait is normal and unassisted. [ X ] Vobcik-ke-djcq is normal [ X ] No nystagmus [ X ] Normal Romberg [ X ] Normal DUANE [ X ] No tremor [ ] Abnormal Findings: [ ] Not examined : Deferred to the [place]'s own provider(s) Other: [ ] Results of EKG, CXR, and all labs were reviewed with the [place]. [ ] All questions answered. [ X ] No labs, EKG or CXR were ordered as part of tis evalaution. [ ] Below results are from labs/tests ordered previously by other providers. Assessment/Plan for administrative exam for [place] Registry 1. Diagnosis: ICD-10 code Lumbar radiculopathy M54.16 Low Testosterone E29.1 Glaucoma H40.9 GERD K21.9 Sleep apnea G47.30 [place] reports that he has not been diagnosed with high blood pressure in the past, but had elevated readings today. Advised [place] to follow-up with his primary care provider. He also has a blood pressure monitor at home and was advised to check his blood pressure readings and notify his PCP for any readings greater than 140 over greater than 90. Advised that if he is diagnosed with hypertension, that is a presumptive condition of [place] exposure, and he should file a claim with the [facility]. was provided both verbal and written information on how to access a flight service specialist to assist him/her with filing a claim as well as general information on filing claims. 2.Has AO-related symptoms/complaints: (MAKE SURE DATE OF ONSET, DURATION, CURRENTLY PRESENT ARE INCLUDED WITHIN EXAM) Symptom: ICD-10 1. Falls ICD 10 Code: R29.6 Year it started: 1607-5932 Is it still present? no Duration (months): 24 months 3.Lab, CXR, EKG [ ] None ordered [ ] All are normal [ ] Abnormal findings: I advised that the contact their medical provider to arrange for follow up on the abnormal findings and for routine medical care/follow up on known conditions. [ ] Copies of lab results given to the [place] (ELISSA form signed). [ ] Copies of EKG results given to the [place] (ELISSA form signed). [ ] Copies of CXR results given to the [place] (ELISSA form signed). [ ] ELISSA form signed [ ] Consent form signed 4. Consults: 1= No Consultation Needed (Consultation is ongoing or is not needed) 2= Records reviewed. Consultation is completed. 3= Consultation requested 4= Consultation recommended to PCM [ ] Dermatology [ ] Pulmonology [ ] Reproductive Health [ ] Hematology/Oncology [ ] Urology [ ] Neurology [ ] ENT [ ] Other [ ] Hepatitis C negative [ ] Hepatitis C positive [ X ] Hepatitis C Not done [ ] Additional Workup Other considerations: [ ] Cardiology [ ] Dentistry [ 2 ] Endocrinology [ ] Gastroenterology [ ] Infectious Disease [ ] Nephrology [ ] Occupational medicine [ ] Orthopedic [ ] Rheumatology [ X ] No consults were ordered as part of today's registry exam Biopsy: No The [place] voiced understanding of instructions and agrees to follow up with his regular medical care provider for routine care and follow up on labs/test results. 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
--- OUTSIDE RECORDS SUMMARY | 2024-12-21 16:34 | XMS_ITS | Continuity of Care Document ---
Author Name [facility] Organization [facility] Care Team Providers Care Finance Business Manager Name Role Phone [facility] Unavailable Unavailable Problems Combined list of problems from Department of [facility] and [facility] facilities. It does not include entries that were removed or entered in error. Problem Status Onset Date Problem Type Date of Resolution Comments Source Exposure to Potentially Hazardous Substance ([facility] [id number]) Active Condition November 21 Entered By: PATRICK GREEN I Comment: Agent Mcdermott [facility] Diagnosis: ICD-10-CM Z77.29 Contact with and exposure to other hazardous substances Active Diagnosis [facility] Diagnosis: ICD-10-CM Z46.1 Encounter for fitting and adjustment of hearing aid Active Diagnosis [facility] Diagnosis: ICD-10-CM H90.3 Sensorineural hearing loss, bilateral Active Diagnosis [facility] Immunizations Combined list of available immunizations from the [facility] and [facility] facilities. Immunization Series Date Given Administered By Site Reaction Lot Number CVX Code Drug Bar Useful Or Busser Status Comments Source PNEUMOCOCCAL CONJUGATE PCV20, POLYSACCHARID E [id number] CONJUGATE, ADJUVANT, PF 1 2023 216 complet ed HISTORICA L INFORMATI ON - FROM [facility] COVID-19 ([employer]), MRNA, LNP-S, PF, 30 MCG/0.3 ML DOSE 1 2020 208 complet ed HISTORICA L INFORMATI ON - FROM OTHER [facility] INFLUENZA, HIGH-DOSE, TRIVALENT, PF 1 2018 135 complet ed HISTORICA L INFORMATI ON - FROM OTHER [facility] ZOSTER RECOMBINANT 1 2017 187 complet ed HISTORICA L INFORMATI ON - FROM OTHER [facility] Vital Signs Combined list of inpatient and outpatient Vital Signs from Department of Defense and Veterans Affairs, ranging from 12 months to all on record, depending upon the facility. Vital Sign Value Date Comments Source SYSTOLIC BLOOD PRESSURE 163 11/30/2024 14:27:36 [facility] DIASTOLIC BLOOD PRESSURE 81 11/30/2024 14:27:36 [facility] PULSE OXIMETRY 99 11/30/2024 14:27:36 [facility] WEIGHT 172.5 11/30/2024 14:27:36 [facility] BMI 25 kg/m2 11/30/2024 14:27:36 [facility] HEIGHT 70 11/30/2024 14:27:36 [facility] TEMPERATURE 97.6 11/30/2024 14:27:36 [facility] PULSE 79 11/30/2024 14:27:36 [facility] Encounters Combined list of: 1) Encounters from Department of Veterans Affairs facilities going backup to the last 18 months, not all [place] inpatient encounters are included; 2) Encounters from the Department of [facility] facilities going backup to 280 months. Location Location Details Encounter Type Encounter Number Reason For Visit Attending Provider ADM Date DC Date Status Disposition Source [facility] Outpatient Encounter [id number] 09/28 [facility] Outpatient Encounter [id number] 03/[address] [facility] Outpatient Encounter [id number] 03/[address] [facility] N [facility] Outpatient Encounter [id number] 06/04 [facility] HEARING AID EXAM BOTH EARS [id number] Diagnos is: ICD-10- CM H90.3 Sensori neural hearing loss, SHAISTA GarzonI B 07/16 [facility] DIVIS N [facility] HEARING AID SUP/ACCESS /DEV [id number] Diagnos is: ICD-10- CM H90.3 Sensori neural hearing loss, jarred jones MARIALUISA KURTZ B 08/27 [facility] N [facility] Outpatient Encounter [id number] 10/[address] [facility] N [facility] HEARING AID SUP/ACCESS /DEV [id number] Diagnos is: ICD-10- CM H90.3 Sensori neural hearing loss, jarred Jonathan Anne N 10/30 [facility] Outpatient Encounter [id number] EDY GREEN HIA I 11/21 [facility] HEARING AID XM&SLCTN BINAURL [id number] Diagnos is: ICD-10- CM Z46.1 Encount er for fitting and adjustm ent of hearing aid Jonathan MOISE N 11/22 [facility] N [facility] Outpatient Encounter [id number] WALLY SIEGEL 11/28 [facility] N [facility] DIVISION OFFICE O/P [place] 60 MIN [id number] Diagnos is: ICD-10- CM Z77.29 Contact with and exposur e to other hazardo us substan garry EDY GREEN HIA I 11/30 [facility] Plan of Care List of future care activities from Department of [facility] Affairs facilities. Additional future care activities may be listed in the Assessment and Plan section. Date/Time Care Activity Care Activity Detail Evelinai karo 12/27/2024 AMBULATORY - SURGERY AMBULATORY - SURGERY [facility]
--- OUTSIDE RECORDS SUMMARY | 2024-12-21 16:34 | XMS_ITS | Encounter Summary ---
Author Organization [facility] Address [address] [place] [address] Phone Care Team Providers Care Aeronautical Engineering Technologist Name Role Phone Jimenez Salazar MD Primary Care Provider [phone] Leodan Hazel MD Unavailable Encounter Details Date Type Department Care Team (Late st Contact Info) Description 09/29/2023 Orders Only [facility] Scanning, Provider Social History Tobacco Use Types Packs/Day Years Used Date Smoking Tobacco: Former Smokeless Tobacco: Never Sex and Gender Information Value Date Recorded Sex Assigned at Not on file Legal Sex Male 8:22 PM FISCAL AGENT Gender Identity Not on file Sexual Orientation Not on file documented as of this encounter Plan of Treatment Not on file documented as of this encounter Procedures Procedure Name Priority Date/Time Associated Diagnosis Comments SCAN - LABS 09/29/2023 documented in this encounter Results * SCAN - LABS (09/29/2023) us Provider Scanning Final Result documented in this encounter Visit Diagnoses Not on filedocumented in this encounter Care Teams Aeronautical Engineering Technologist Relationship Specialty Start Date End Date Jimenez Salazar MD [address] [facility] [address] [place] [address] PCP - General 11/08/16 Leodan Hazel MD [address] [facility] [address] [place], [place] [id number] Referring Physician Neuromuscular Medicine 02/09/18 documented as of this encounter
--- OUTSIDE RECORDS SUMMARY | 2024-12-21 16:34 | XMS_ITS | Continuity of Care Document ---
Author Organization [facility] Address [address] [place] [address] Phone Care Team Providers Care Fisher Diver Net Name Role Phone Heath Denton Unavailable Unavailable Procedures Procedure Date Office/outpatient Visit, Est Progressive Lens, Plastic Tint Photochromatic, Plastic Prism Lens/es Tax - Medical Office/outpatient Visit, Est Refraction Eye Exam & Treatment Refraction Advance Directives Directive Yes / No Effective Date File Name No Information Encounters Encounter Description Practice Location Reason(s) For Visit Diagnoses Date Provider Providers Copied on Encounter Office/outpat ient Visit, Est [facility], [address] [place] [address] [address], [place], [place], [id number], [place] tel:[phone] [facility] No Information [address], [place], [address], [place]. tel:[phone] [facility], [address], [place], [place], [id number], [place] tel:[phone] [facility] No Information [address] [facility], [address], [place], [place], [address], [place]. tel:[phone] Referring Provider: Heath Hennessy, [address] [facility] [address], [place], [address]. tel:[phone] sulting Provider: Alma Delia Middleton, [address], [place], [place], [facility][note 3]. tel:[phone] Office/outpat ient Visit, Est [facility], [address], [place], [place], [address], tel:[phone] [facility] No Information [address] [facility] , [address], [place], [place], [facility][note 3], . tel:[phone] [facility], [address], [place], [place], [address], tel:[phone] [facility] No Information [address] [place], [place] [address] , [address], [place], [address], . tel:[phone] Family History Family Member Type Diagnosis Age At Onset No Information Payers Payer name Insurance type Covered republican ID Authoriza tion(s) No Information Social History Type Description Quantity Date Captured Comments Sex Male Smoking Status No Information Chief Complaint And Reason For Visit No Information Reason For Referral Reason For Referral No Information History Of Present Illness Encounter Date Complaint History Of Prese nt Illness No Information Functional Status Date Functional Assessmen t No Information Instructions Date Instruction Additional Infor mation No Information Assessments Type Assessment Date No Information Patient Care Teams Name Effective Dates (start - stop) Status Members No Information
--- OUTSIDE RECORDS SUMMARY | 2024-12-21 16:34 | XMS_ITS | Encounter Summary ---
Author Organization [facility] Address [address] [place] [address] Care Team Providers Care Administration Dean Name Role Phone Jimenez Salazar MD Primary Care Provider [phone]- [phone] Leodan Hazel MD Unavailable Encounter Details Date Type Department Care Team (Late st Contact Info) Description 11/26/2022 Telephone [facility] ([facility]) [address] [place] [address] Brandon Vazquez, RT Social History Tobacco Use Types Packs/Day Years Used Date Smoking Tobacco: Former Smokeless Tobacco: Never Sex and Gender Information Value Date Recorded Sex Assigned at Not on file 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
--- OUTSIDE RECORDS SUMMARY | 2024-12-21 16:34 | XMS_ITS | Clinical Summary ---
Author Organization [facility] Address [address] [place] [address] Care Team Providers Care Internet Specialist Name Role Phone Jimenez Salazar MD Primary Care Provider [phone] Leodan Hazel MD Unavailable Allergies No known active allergies Medications alendronate (FOSAMAX) 70 mg tablet 07/27/19 18 Active ALPRAZolam (XANAX) 1 mg tablet 10/27/19 18 Active mecobalamin, vitamin B12, 1,000 mcg tablet,disinte grating Place 5,000 mcg under the tongue Active calcium carbonate-neetu min D3 1,250mg (500mg elemental) - 5 mcg (200 units) per tablet 4 tabs once a day Active magnesium gluconate (MAGONATE) 500 mg (27 mg elemental) tabletIndicati ons:hypomagnes emia Take one tablet daily Active multivit-elevator examiner als/ferrous fum (MULTI VITAMIN ORAL) daily. Active tamsulosin (FLOMAX) 0.4 mg extended release capsule 10/27/19 18 Active testosterone cypionate (DEPO-TESTOTER ONE) 200 mg/mL injection 1 01/25/20 18 Active cyanocobalamin (Vitamin B-12) 500 mcg tabletIndicati ons:Prevention of Vitamin B12 Deficiency daily. Active zinc gluconate 100 mg tablet daily. Active TRAVATAN Z 0.004 % drops 11 11/14/19 19 Active dorzolamide-ti molol (COSOPT) 22.3-6.8 mg/mL ophthalmic solution 11/24/19 19 Active docosahexanoic acid/epa (FISH OIL ORAL) Take 950 mcg by mouth Active cholecalcifero l (VITAMIN D-3) 2000 unit capsule 1 capsule (2,000 Units total) Active P[facility]-IAJPVD-[id number] DDB-JYCUKS-PO# 17 ORAL Take by mouth Active taurine 500 mg capsule Take by mouth Active ALPHAGAN P 0.1 % drops INSTILL 1 DROP INTO RIGHT EYE TWICE DAILY 1 02/23/20 19 Active PROCTOZONE-HC 2.5 % rectal cream 1 02/27/20 19 Active diclofenac sodium (VOLTAREN) 1 % gel Apply 4 g topically 3 (three) times a day 20 g 11 09/25/19 22 Active cyclobenzaprin e (FLEXERIL) 10 mg tablet Take 1 tablet (10 mg total) by mouth 2 (two) times a day as needed for muscle spasms 60 tablet 11 09/29/19 24 Active gabapentin (NEURONTIN) 600 mg tabletIndicati ons:Neuropathi c Pain Take 2 tablets (1,200 mg total) by mouth 3 (three) times a day 540 tablet 3 09/29/[address] (PROTONIX) 20 mg EC tablet Take 1 tablet (20 mg total) by mouth daily 05/13/20 24 Active HYDROcodone-ac etaminophen (NORCO) 7.5-325 mg per tabletIndicati ons:Pain Take 1 tablet by mouth every 6 (six) hours as needed for pain 120 tablet 12/14/19 25 Active nortriptyline (PAMELOR) 50 mg capsule Take 1 capsule by mouth twice daily 60 capsule 2 12/21/19 25 Active nabumetone (RELAFEN) 750 mg tablet Take 1 tablet by mouth twice daily 180 tablet 12/22/19 25 Active nabumetone (RELAFEN) 750 mg tablet Take 1 tablet by mouth twice daily 180 tablet 09/12/19 25 025 Discontinued HYDROcodone-ac etaminophen (NORCO) 7.5-325 mg per tabletIndicati ons:Pain Take 1 tablet by mouth every 6 (six) hours as needed for pain 120 tablet 10/09/19 25 025 Discontinued(Re order) nortriptyline (PAMELOR) 50 mg capsule Take 1 capsule by mouth twice daily 60 capsule 11/22/19 25 025 Discontinued Active Problems Problem Noted Date Diagnosed Date Other osteoporosis 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 pathological fracture 09/01/2021 Chronic pain of left knee 04/19/2019 Assessment & Plan (04/19/2019 12:42 PM CDT): Previously Knee XR w/ small effusion but no obvious OA. Steroid injection 10/27 provided ~3 month relief. He continues to have significant pain in his knee. He is exercising and attempting strength training in his left quad and has seen progressive improvement in strength. -Synvisc, lidocaine, and steroid injection completed today. Ulnar nerve compression, left 02/14/2018 Colon polyps 02/14/2018 Dyspepsia 02/14/2018 Rectal bleeding 02/14/2018 Femoral neuropathy of left lower extremity 09/08 Assessment & Plan (04/19/2019 12:44 PM CDT): Significant muscle atrophy of left quad on examination. Thankfully, he has been diligent in his rehab and has had appreciable strength gain. He is currently walking w/o assistance. He has be tapered to prednisone 10mg daily per neuromuscular. 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 Reclast ordered. Last DEXA scan w/ significant improvement in bone mass. He is adherent to Ca and Vit D supplementation. 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 12/29/2016 Paresthesia 10/21/2016 Muscle pain 11/28/2014 Spinal stenosis of lumbar region 11/27/2014 Spondylolisthesis, grade 2 11/27/2014 Low back pain 09/12/2014 Osteoarthritis of back 09/12/2014 Encounter for preventive health examination 03/18 Encounters Date Type Department Care Team Description 11/15/2024 12:10 PM CDT - 11/15/2024 11:59 PM CDT Hospital Encounter [address] [address] Encounter for monitoring opioid maintenance therapy Discharge Disposition: Discharge to home or self care 11/15/2024 11:05 AM CDT Lab [facility] Endocrinology Metabolism and Lipid [address] [place] [address] [place] [address] Anemia, unspecified type; Vitamin D deficiency; Routine adult health maintenance 11/15/2024 11:04 AM CDT - 11/15/2024 11:59 PM CDT Hospital Encounter [facility] [address] [place] [address] Hayden Barone MD Pain; Hematoma of right lower leg Discharge Disposition: Discharge to home or self care 11/15/2024 10:15 AM CDT Office Visit [facility] Rheumatology [address] [place] [address] [place] [address] Hayden Barone MD Osteoarthritis of spine with radiculopathy, lumbar region (Primary Dx); Encounter for monitoring opioid maintenance therapy; Vitamin D deficiency; Routine adult health maintenance; Pain; Hematoma of right lower leg; Anemia, unspecified type; Atelectasis 10/18/[address] Office [address] [place] [address] Marbella Sandoval DNP 10/17/2024 12:00 PM CDT Office Visit [address] [place] [address] Marbella Sandoval DNP Other osteoporosis 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 pathological fracture (Primary Dx) 10/17/2024 11:30 AM CDT Clinical Support [address] [place] [address] Age-related osteoporosis 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 pathological fracture (Primary Dx); Other osteoporosis 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 pathological fracture from Last 3 Months Immunizations Immunization Administration Dates Next Due Influenza, Quad, Adjuvantate d, Intramuscular 05/05/2022 Influenza, Quadrivalent, Hig h Dose, Preservative Free, Intrr 03/22/2020 Influenza, Split 05/18/2017 Influenza, Trivalent, High D ose, Split, Preservative Free, Intramuscular 04/19/2019,05/10/2018,05/09/2018,04/21,03/23/2016,04/16/2014 Influenza, Trivalent, IM (MDV) 05/01/2013 Influenza, Trivalent, Preser vative Free, Intramuscular 04/17/2014 Influenza, Unspecified 04/17/2017 Pfizer SARS-CoV-2 Monovalent Vaccination (12+ Yrs) PURPLE 02/08/2022,06/23/2021 Pfizer Sars-Cov-2 Bivalent V accination (12+ YRS) 05/05/2022 Pneumococcal Conjugate PCV 13 06/05/2015, 015 Pneumococcal Conjugate Pcv20 09/29/2023 ZOSTER Recombinant 12/01/2017,08/18/2017 Surgical History Surgery Date Site/Laterality Comments CA TONSILLECTOMY PRIMARY/SECONDARY <AGE 12 Tonsillectomy - (Added by TW Conv) FL UPPER GI AIR CONTRAST W KUB 11/22/2018 Bilateral FL UPPER GI AIR CONTRAST W KUB 12/26/2018 Bilateral FL UPPER GI AIR CONTRAST W KUB 11/29/2022 Bilateral Medical History Medical History Date Comments Personal history of other di seases of male genital organs History of benign prostatic hyperplasia - (Added by TW Conv) Family History Medical History Relation Name Comments Heart disease Father Family history of cardiac disorder - (Added by TW Conv) Arthritis Mother Family history of arthritis - (Added by TW Conv) Relation Name Status Comments Father Mother Social History Tobacco Use Types Packs/Day Years Used Date Smoking Tobacco: Former Smokeless Tobacco: Never Tobacco Cessation:Counseling Given: Not Answered Sex and Gender Information Value Date Recorded Sex Assigned at Not on file 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 Gender Identity Not on file Sexual Orientation Not on file Obstetrics History Last Filed Vital Signs Vital Sign Reading Time Taken Comments Blood Pressure 144/67 11/15/2024 10:03 AM CDT Pulse 83 11/15/2024 10:03 AM CDT Temperature 36.3 C (97.3 F) 11/15/2024 10:03 AM CDT Respiratory Rate 20 11/29/2022 11:4 8 AM CDT Oxygen Saturation 97% 09/29/2023 10: 22 AM CDT Inhaled Oxygen Concentration - - Weight 76.1 kg (167 lb 12.8 oz) 025 10:03 AM CDT Height 177.8 cm (5' 10) 11/15/2024 10: 03 AM CDT Body Mass Index 24.08 11/15/2024 10:03 AM CDT Plan of Treatment Health Maintenance Due Date Last Done Comments Depression Screening 1940 Fall Risk Assessment 1940 DTaP/Tdap/Td Vaccine (1 - Tdap) 1951 Hepatitis B Screening 1958 Well Visit 65+ 2005 Covid-19 Vaccine (4 - 2023-2 5 season) 2024 05/05/2022, 02/08/2022, 06/23/2021 Influenza Vaccine (Season Ended) 2025 05/05/2022, 03/22/2020, 04/19/2019, Additional history exists Zoster Vaccine Completed 06/04/2022, 11/15, 08/18/2017 Pneumococcal vaccine 65+ Completed 024, 06/05/2015, 08/18/2014 Procedures Procedure Name Priority Date/Time Associated Diagnosis Comments OPIATES CONFIRMATION MS, URINE Routine 11/15/2024 12:10 PM CDT Encounter for monitoring opioid maintenance therapy DRUGS OF ABUSE SCREEN, URINE WITH REFLEX CONFIRMATION Routine 11/15/2024 12:10 PM CDT Encounter for monitoring opioid maintenance therapy XR TIBIA FIBULA RIGHT2 VIEWS Schedule Routine, Read Routine (OP Routine) 11/15/2024 11:24 AM CDT Pain Hematoma of right lower leg XR CHEST PA LATERAL 2 VIEWS Schedule Routine, Read Routine (OP Routine) 11/15/2024 11:24 AM CDT Atelectasis CBC WITH AUTO DIFFERENTIAL Routine 11/15/2024 10:58 AM CDT Routine adult health maintenance COMPREHENSIVE METABOLIC PANEL Routine 11/15/2024 10:58 AM CDT Routine adult health maintenance VITAMIN D 25 HYDROXY Routine 11/15/2024 10:58 AM CDT Vitamin D deficiency VITAMIN B12 Routine 11/15/2024 10:58 AM CDT Anemia, unspecified type DEXA TBS AXIAL SKELETON BONE DENSITY 1 OR MORE SITES Schedule Routine, Read Routine (OP Routine) 10/17/2024 11:30 AM CDT Age-related osteoporosis 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 pathological fracture from Last 3 Months Results * (ABNORMAL) Drugs of Abuse Screen, Urine with Reflex Confirmation (11/15/2024 12:10 PM CDT) Amphetamine, ur Not Detected CutOff 500ng/mL Comment: Interpretive Data - Amphetamines: Samples containing greater than 500 ng/mL d-methamphetamine or other cross-reacting amphetamine compounds are reported as positive. Amphetamine immunoassays are subject to significant false positive rates due to cross-reactivity of non-amphetamine drugs. Confirmatory testing required for definitive results. Current Interpretive Data was last reviewed 2023. Barbiturates, ur Not Detected CutOff 200ng/mL [facility] Comment: Interpretive Data - Barbiturates: Samples containing greater than 200 ng/mL secobarbital or other cross-reacting barbiturate compounds are reported as positive. False positive and false negative results are possible. Confirmatory testing required for definitive results. Current Interpretive Data was last reviewed 2023. Benzodiazepines, ur Screen Positive, presumptive (A) CutOff 100ng/mL [facility] Comment: Interpretive Data - Benzodiazepines: Samples containing greater than 100 ng/mL nordiazepam or other cross-reacting compounds are reported as positive. False positive and false negative results are possible. Confirmatory testing required for definitive results. Current Interpretive Data was last reviewed 2023. Cannabinoids, ur Not Detected CutOff 50 ng/mL [facility] Comment: Interpretive Data - Cannabinoids: Samples containing greater than 50 ng/mL delta-9 THC -COOH or other cross- reacting compounds are reported as positive. False positive and false negative results are possible. Confirmatory testing required for definitive results. Current Interpretive Data was last reviewed 2023. Cocaine, ur Not Detected CutOff 150ng/mL [facility] Comment: Interpretive Data - Cocaine: Samples containing greater than 150 ng/mL benzoylecgonine or other cross- reacting compounds are reported as positive. False positive and false negative results are possible. Confirmatory testing required for definitive results. Current Interpretive Data was last reviewed 2023. Fentanyl, Ur Not Detected CutOff 5 ng/mL [facility] Comment: Interpretive Data - Fentanyl: Samples containing greater than 5 ng/mL norfentanyl, fentanyl, or other cross-reacting fentanyl compounds are reported as positive. False positive and false negative results are possible. Confirmatory testing required for definitive results. Current Interpretive Data was last reviewed 2023. Methadone, ur Not Detected CutOff 300ng/mL [facility] Comment: Interpretive Data - Methadone: Samples containing greater than 300 ng/mL d,l-methadone or other cross-reacting compounds are reported as positive. False positive and false negative results are possible. Confirmatory testing required for definitive results. Current Interpretive Data was last reviewed 2023. Opiates, ur Screen Positive, presumptive (A) CutOff 300ng/mL [facility] Comment: Interpretive Data - Opiates: Samples containing greater than 300 ng/mL morphine or other cross-reacting compounds are reported as positive. False positive and false negative results are possible. Confirmatory testing required for definitive results. Current Interpretive Data was last reviewed 2023. Oxycodone, ur Not Detected CutOff 100ng/mL [facility] Comment: Interpretive Data - Oxycodone: Samples containing greater than 100 ng/mL oxycodone or other cross-reacting compounds are reported as positive. False positive and false negative results are possible. Confirmatory testing required for definitive results. Current Interpretive Data was last reviewed 2023. Phencyclidine, ur Not Detected CutOff 25 ng/mL [facility] Comment: Interpretive Data - Phencyclidine: Samples containing greater than 25 ng/mL phencyclidine or other cross-reacting compounds are reported as positive. False positive and false negative results are possible. Confirmatory testing required for definitive results. Current Interpretive Data was last reviewed 2023. Urine Creatinine 114 mg/dL [facility] Comment: Interpretive Data Urine Creatinine: < 10 mg/dL is extremely dilute = or > 10 but < 20 mg/dL is dilute = or > 20 mg/dL is normal Current Interpretive Data was last revised on 2017. Urine 11/15/2024 12:1 0 PM CDT 11/15/2024 12:21 PM CDT Narrative [facility] - 11/15/2024 1:22 PM CDT Drug of Abuse screening is performed by immunoassay for medical purposes only. This is not to be used for Pain Management purposes. If Detected, confirmation testing will be performed for Amphetamines, Cocaine, Fentanyl, Methadone, Opiates, Oxycodone or Phencyclidine. Hayden Barone MD LAB URINE ORDERABLES Fin al Result [facility] [address] [place] [address] * (ABNORMAL) Opiates Confirmation, Urine (11/15/2024 12:10 PM CDT) [facility] Codeine Conf, Ur Does Not Confirm CutOff 50 ng/mL 6- Acetylmorphine Conf, Ur Does Not Confirm CutOff 10 ng/mL [facility] Hydrocodone Conf, Ur Confirmed Positive(A) CutOff 50 ng/mL [facility] Morphine Conf, Ur Does Not Confirm CutOff 50 ng/mL [facility] Hydromorphone Conf, Ur Does Not Confirm CutOff 50 ng/mL [facility] Comment: Interpretive Data This test detects the presence or absence of drug compounds using LC Tandem mass spectrometry and is not intended to assess compliance with prescribed medications. While this test is highly specific, false positive and false negative results may occur in very rare circumstances. Contact the laboratory for consultation, if needed. Performance characteristics were determined by the [facility] in a manner consistent with CLIA requirement and has not been cleared or approved by the U.S. Food and Drug Administration. Current interpretive data was last revised 2020. Urine 11/15/2024 12:1 0 PM CDT 11/15/2024 12:29 PM CDT Hayden Barone MD LAB URINE ORDERABLES Fin al Result Performing Organization Address City/[facility]/ZIP Co de Phone Number [facility] [address] [place] [address] * XR Tibia Fibula Right 2 Views (11/15/2024 11:24 AM CDT) Anatomical Region Laterality Modality Lower Extremities, Lower Leg Right Com puted Radiography 11/15/2024 11:3 1 AM CDT Impressions 11/15/2024 11:31 AM CDT 1. Mild, diffuse subcutaneous edema throughout the right leg with no fracture. Electronically signed by: Yasmani Arnett M.D. Narrative 11/15/2024 11:31 AM CDT EXAMINATION: XR TIBIA FIBULA RIGHT2 VIEWS HISTORY: Right leg pain FINDINGS: 3 view examination of the right tibia and fibula is read without comparison. There is mild, diffuse subcutaneous edema throughout the leg. The tibia and fibula appear normal, without fracture or other bone abnormality. There is a small amount of heterotopic ossification in the lateral ankle ligaments. Procedure Note Yasmani Arnett MD - 11/15/2024 EXAMINATION: XR TIBIA FIBULA RIGHT2 VIEWS HISTORY: Right leg pain FINDINGS: 3 view examination of the right tibia and fibula is read without comparison. There is mild, diffuse subcutaneous edema throughout the leg. The tibia and fibula appear normal, without fracture or other bone abnormality. There is a small amount of heterotopic ossification in the lateral ankle ligaments. IMPRESSION: 1. Mild, diffuse subcutaneous edema throughout the right leg with no fracture. Electronically signed by: Yasmani Arnett M.D. Hayden Barone MD IMG XR PROCEDURES Final Result * XR Chest Pa Lateral 2 Views (11/15/2024 11:24 AM CDT) Anatomical Region Laterality Modality Body, Chest N/A Computed Radiogr aphy 11/15/2024 11:4 0 AM CDT Impressions 11/15/2024 11:56 AM CDT Comparison 07/19/2017. Lungs are clear. No pulmonary edema or consolidation. No pleural effusion or pneumothorax. Normal cardiomediastinal silhouette. No radiographic evidence of lymphadenopathy. Dictated by: Gera Dickey MD The radiology attending physician has personally reviewed this study, and had reviewed and/or edited this written report and agrees with it. Electronically signed by: Homer Zabala MD, PHD Narrative 11/15/2024 11:56 AM CDT EXAMINATION: 2 view chest radiograph Procedure Note Homer Zabala MD PhD - 11/15/2024 EXAMINATION: 2 view chest radiograph IMPRESSION: Comparison 07/19/2017. Lungs are clear. No pulmonary edema or consolidation. No pleural effusion or pneumothorax. Normal cardiomediastinal silhouette. No radiographic evidence of lymphadenopathy. Dictated by: Gera Dickey MD The radiology attending physician has personally reviewed this study, and had reviewed and/or edited this written report and agrees with it. Electronically signed by: Homer Zabala MD, PHD Hayden Barone MD IMG XR PROCEDURES Final Result * (ABNORMAL) CBC with auto differential (11/15/2024 10:58 AM CDT) White Blood Count 10.7 3.6 - 11.2 K/uL [facility] RBC 5.00 4.06 - 5.63 M/uL [facility] Hemoglobin 13.1 13.0 - 17.5 g/dL [facility] Hematocrit 40.6(L) 40.7 - 50.3 % [facility] MCV 81.2 80.0 - 97.6 fL [facility] Comment:Repeated and Verifie d MCH 26.2(L) 26.7 - 33.7 pg [facility] Comment:Repeated and Verifie d MCHC 32.2(L) 32.7 - 35.5 g/dL [facility] RBC Dist Width 15.4 12.3 - 17.0 % [facility] Platelet Count 295 140 - 440 K/uL [facility] MPV 8.7 6.8 - 10.4 fL [facility] Neutrophils % 77.0(H) 38.7 - 74.5 % [facility] Comment:Repeated and Verifie d Lymphocyte % 13.2(L) 20.0 - 54.3 % [facility] Comment:Repeated and Verifie d Monocytes % 7.6 4.3 - 13.5 % [facility] Eosinophils % 1.5 0.0 - 6.0 % [facility] Basophil % 0.7 0.0 - 3.0 % [facility] Absolute Neutrophil 8.2(H) 1.8 - 6.6 K/uL [facility] Absolute Lymphocyte 1.4 0.8 - 3.3 K/uL [facility] Absolute Monocyte 0.8 0.2 - 1.2 K/uL [facility] Absolute Eosinophil 0.2 0.0 - 0.5 K/uL [facility] Absolute Basophil 0.1 0.0 - 0.2 K/uL [facility] Nucleated RBC % 0.1 0.0 - 0.4 /100 WBC [facility] Blood 11/15/2024 10:5 8 AM CDT 11/15/2024 12:31 PM CDT us Hayden Barone MD LAB BLOOD ORDERABLES Fin al Result Performing Organization Address [facility] Co de Phone Number [facility] * Vitamin D 25 hydroxy (11/15/2024 10:58 AM CDT) Vitamin D 89.8 20.0 - 100.0 ng/mL [facility] Comment: VITAMIN D DEFICIENCY = LESS THAN or EQUAL TO 20 ng/mL VITAMIN D INSUFFICIENCY = 21 - 29 ng/mL VITAMIN D SUFFICIENT = 30-100 ng/mL Blood 11/15/2024 10:5 8 AM CDT 11/15/2024 12:31 PM CDT us Hayden Barone MD LAB BLOOD ORDERABLES Fin al Result Performing Organization Address City/State/[facility] Co de Phone Number [facility] * Vitamin B12 (11/15/2024 10:58 AM CDT) Vitamin B12 1,050 232 - 1,245 pg/mL [facility] Blood 11/15/2024 10:5 8 AM CDT 11/15/2024 12:31 PM CDT Hayden Barone MD LAB BLOOD ORDERABLES Fin al Result Performing Organization Address City/State/[facility] Co de Phone Number [facility] * (ABNORMAL) Comprehensive metabolic panel (11/15/2024 10:58 AM CDT) Total Protein 7.3 6.1 - 8.4 g/dL [facility] Albumin 4.6 3.5 - 5.2 g/dL [facility] Calcium 10.0 8.6 - 10.3 mg/dL [facility] BUN 33(H) 7 - 23 mg/dL [facility] Total Bilirubin 0.44 0.20 - 1.40 mg/dL [facility] Alk Phos, Total 82 35 - 129 IU/L [facility] AST (SGOT) 28 11 - 47 IU/L [facility] ALT (SGPT) 11 6 - 53 IU/L [facility] Creatinine 1.11 0.70 - 1.30 mg/dL [facility] Sodium 141 135 - 145 mmol/L [facility] Potassium INTERFERENCE - HEMOLYSIS 3.3 - 5.1 mmol/L [facility] Chloride 105 95 - 107 mmol/L [facility] CO2 Content 22 21 - 29 mmol/L [facility] Glucose 99 64 - 99 mg/dL [facility] Comment: NONFASTING GLUCOSE RANGE = 64-199 mg/dL FASTING GLUCOSE 64 - 99 = NORMAL FASTING GLUCOSE 100 - 125 = IMPAIRED FASTING GLUCOSE FASTING GLUCOSE >=126 = PROVISIONAL DIAGNOSIS OF DIABETES eGFR 65.5 >60.0 mL/min/1 .73 m2 [facility] Blood 11/15/2024 10:5 8 AM CDT 11/15/2024 12:31 PM CDT Narrative [facility] - 11/15/2024 1:36 PM CDT Specimen Hemolyzed Hayden Barone MD LAB BLOOD ORDERABLES Fin al Result [facility] * Dexa TBS Axial Skeleton Bone Density 1 or more sites (10/17/2024 11:30 AM CDT) Anatomical Region Laterality Modality Wrist, Body N/A Radiographic Antonia ging Narrative 10/18/2024 3:47 PM CDT Patient Name: Luke Arnett Date of : 1940 Date of scan: 10/17/2024 Bone mineral density was performed on a Holo[employer]ac[employer] Discovery Densitometer. Based on machine cross-calibration and precision studies the least significant changes of this densitometer is 0.024 g/cm2 at the spine, 0.020 g/cm2 at the total proximal femur, and 0.014g/cm2 at the forearm. HISTORY: This is a 84 y.o. male with a history of osteoporosis. He reports that he has quit smoking. He has never used smokeless tobacco. Currently on treatment with calcium and vitamin D and previously treated with risedronate (Actonel), zoledronic acid (Reclast), and testosterone. INDICATIONS: History of osteoporosis and male over age 70. FINDINGS: BONE MINERAL DENSITY OF THE PROXIMAL FEMUR Bone Mineral Density (BMD) of the left hip total was found to be 0.773 gm/cm2. This corresponds to a T-score standard deviations from the mean of young adults of -1.7. Femoral neck is 0.705 gm/cm2 with a T-score (standard deviations from the mean of young adults) of -1.7. When compared to the previous study of 10/15/2022 there has been no significant changes in bone density. BONE MINERAL DENSITY OF THE FOREARM Bone Mineral density (BMD) of the left proximal 1/3 of the radius measures 0.755 gm/cm2. This corresponds to a T-score (standard deviations from the mean of young adults) of -1.2. When compared to the previous study of 10/15/2022 there has been a -0.042 gm/cm (-5.3%) decrease in bone density that is considered significant. A forearm bone density study was performed instead of a spine study due to presence of surgical hardware. SUMMARY: Bone mineral density shows evidence of low bone mass at the lumbar spine and proximal femur and moderately increased fracture risk (Osteopenia). There has been a significant decrease in bone density since previous measurement. ADDITIONAL COMMENTS: Postmenopausal Women and Men Over 50: Diagnostic criteria: Osteoporosis: BMD at or below -2.5 T-score; Osteopenia (low bone mass): BMD between -1.0 and -2.5 T-score. If the patient has a history of a fragility fracture, a fracture that occurred with trauma equivalent to a fall from a standing position or less, then the diagnosis is osteoporosis regardless of bone density. The history and data sections of the bone mineral density scan were prepared by Sukhjinder Lucas) VITO who is accredited by the International Society of Clinical Densitometry. The overall patient assessment and scan interpretation were performed by Aury Rose M.D. who is certified by the International Society of Clinical Densitometry. [id number] Marbella Sandoval [facility] DXA PROCEDURES Final Result from Last 3 [place] [address] MEDICARE COMMERCIAL GENERIC HUMANA MEDICARE HMO HUMANA MEDICARE HMO Care Teams Internet Specialist Relationship Specialty Start Date End Date Jimenez Salazar MD [address] [place] [address] PCP - General 11/08/16 Leodan Hazel MD [address] [place] [address] Referring Physician Neuromuscular Medicine 02/09/18
--- OUTSIDE RECORDS SUMMARY | 2024-12-21 16:34 | XMS_ITS | Encounter Summary ---
Author Name [facility] ([place]) Organization [facility] [place] Address [address] [place] [id number] Insurance Providers: All historical and current Section [...] PART B Jul 18, 2009 PART B [id number] EULOGIO ROWE IN PATIENT MEDICARE (WNR) MEDICARE (M) PART A Mar 18, 2005 PART A [id number] EULOGIO ROWE IN PATIENT Selected Encounter This section includes the information on record at [place] for the Encounter. Date/Time Encounter Type Encounter Description Reason Provider Source November 22, 2024 11:45 AM HEARING AID [id number] [facility] AUDIOLOGY ICD-10-CM Z46.1 Encounter for fitting and adjustment of hearing aid DARIEL MOISE [facility] Encounter Template Text not used by [place] Assessments - Encounter Diagnoses This section includes the primary and secondary diagnoses documented for the Encounter. Date/Time Primary/Secondary Diagnosis Diagnosis Name Provider Source November 22, 2024 12:25 PM PRIMARY Encounter for fitting and adjustment of hearing aid DARIEL MOISE [facility] November 22, 2024 12:25 PM SECONDARY Sensorineural hearing loss, bilateral DARIEL MOISE [facility] Plan of Treatment: Future Appointments (+ 6 months) and Future Tests (+/- 45 days) The Plan of Treatment section includes future care activities for the patient from all [place] [facility]. This section includes future appointments and future orders which are active, pending or scheduled. Future Appointments This section includes appointments that were scheduled to occur 6 months from the date of the Encounter, up to a maximum of 20 appointments. The data comes from all [place] treatment facilities. Appointment Date/Time Appointment Type Appointme nt Facility Name November 30, 2024 02:30 PM AMBULATORY - MEDICINE [facility] Dec 27, 2024 12:30 PM AMBULATORY - SURGERY [facility] Encounter Notes: All associated encounter notes This section contains the clinical notes associated to the Encounter. Date/Time Encounter Note(s) Provider Source November 22, 2024 11:57 AM AUDIOLOGY FURNACE INSTALLER HELPER NOTE: LOCAL TITLE: HEARING AIDS STL STANDARD TITLE: AUDIOLOGY FURNACE INSTALLER HELPER NOTE DATE OF NOTE: NOVEMBER 22, 2024@11:57 ENTRY DATE: NOVEMBER 22, 2024@11:57:45 AUTHOR: HOUSTON MOISE COSIGNER: URGENCY: STATUS: COMPLETED SUBJECT: Audio HEARING AIDS STL Has ADDENDA HEARING AID CHECK PERFORMED TODAY: [place] has the following [place] issued aid(s): 08/27/24 SONOVA PHONAK AUDEO L90-312 ALTA R [id number] 08/27/24 SONOVA PHONAK AUDEO L90-312 ALTA L [id number] Worn with cShells. Trial period: 01/16/25 REPORTED PROBLEM: Per 10/30/2024 phone note, pt reported retention issues with hearing aids. Today, pt presented to clinic and confirmed ongoing retention concerns with hearing aids. Pt also inquired about possible trial period exchange for rechargeable hearing aids due to difficulties with handling disposable batteries. REPAIR ACTIONS: Confirmed aids within trial period. Discussed options with pt. Pt confirmed intention to pursue trial period exchange and agreeable to addition of canal lock for retention. Hearing Aid Exam performed today: [] Monaural [x] Binaural Otoscopy reveals clear canals. Appropriate evaluation of patient leads to hearing aid order. Ear mold impression(s) taken. Hearing aid will be ordered and appointment requested for fitting. [] patient initiated visit [x] provider initiated visit [] new user [x] experienced user- Pt wore private purchase slim tip BTE with domes; trialed 08/27/24 SONOVA PHONAK AUDEO L90-312, but would like to exchange for rechargeable. Discussed aids with pt to include the following: STYLE: Showed pt various demo aids in clinic from canal through ALTA style. Pt chose to remain with ALTA style aids. Showed pt demo Infinio Sphere vs Infinio for comparison of sizing. Pt will remain with smaller Infinio sized hearing aid. BATTERY TYPE: Discussed rechargeable vs disposable batteries. Pt chose rechargeable hearing aids. COLOR: beige CONNECTIVITY: Pt has an Android phone, which was paired to hearing aids at 08/27/2024 fitting appt. MATRIX: 2P with cShells with canal locks After discussion, pt and clinician chose: PHONAK AUDEO I90-R ALTA programmed to auto, VC, BT to Android ELECTRIC METER TECHNICIAN GO ALTA I Returned the following aids: 08/27/24 SONOVA PHONAK AUDEO L90-312 ALTA R [id number] 08/27/24 SONOVA PHONAK AUDEO L90-312 ALTA L [id number] PLAN 1. HAF scheduled. /nikhil/ Clyde HIGHTOWER Staff Instructor Modeling, Surgery Service Signed: 11/22/2024 12:31 12/05/2024 ADDENDUM STATUS: COMPLETED Aids pre-programmed for fitting. /nikhil/ Clyde HIGHTOWER Staff Instructor Modeling, Surgery Service Signed: 12/05/2024 07:41 HOUSTON MOISE [facility]
--- OUTSIDE RECORDS SUMMARY | 2024-12-21 16:34 | XMS_ITS | Encounter Summary ---
Author Organization [facility] Address [address] [place] [address] Phone Care Team Providers Care Coloring Checker Name Role Phone Jimenez Salazar MD Primary Care Provider [phone]- [phone] Leodan Hazel MD Unavailable Encounter Details Date Type Department Care Team (Late st Contact Info) Description 01/02/2023 Orders Only [facility] Scanning, Provider Social History Tobacco Use Types Packs/Day Years Used Date Smoking Tobacco: Former Smokeless Tobacco: Never Sex and Gender Information Value Date Recorded Sex Assigned at Not on file 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 Gender Identity Not on file Sexual Orientation Not on file documented as of this encounter Plan of Treatment Not on file documented as of this encounter Procedures Procedure Name Priority Date/Time Associated Diagnosis Comments SCAN - LABS 01/02/2023 documented in this encounter Results * SCAN - LABS (01/02/2023) us Provider Scanning Final Result documented in this encounter Visit Diagnoses Not on filedocumented in this encounter Care Teams Coloring Checker Relationship Specialty Start Date End Date Jimenez Salazar MD [address] [facility] [address] [place] [address] PCP - General 11/08/16 Leodan Hazel MD [address] [facility] [address] [place], [place] [id number] Referring Physician Neuromuscular Medicine 02/09/18 documented as of this encounter
--- OUTSIDE RECORDS SUMMARY | 2024-12-21 16:34 | XMS_ITS | Encounter Summary ---
Author Organization [facility] Address [address] [place] [address] Phone Care Team Providers Care Awning Hanger Helper Name Role Phone Jimenez Salazar MD Primary Care Provider +1- [phone] Leodan Hazel MD Unavailable Encounter Details Date Type Department Care Team (Late st Contact Info) Description 02/13/2018 Orders Only [facility] Surgery [address] 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 zinc gluconate 100 mg tablet daily. cyanocobalamin (Vitamin B-12) 500 mcg tabletIndications :Prevention of Vitamin B12 Deficiency daily. testosterone cypionate (DEPO-TESTOTERONE ) 200 mg/mL injection 1 01/24/2018 tamsulosin (FLOMAX) 0.4 mg extended release capsule 10/26/2017 multivit-minerals /ferrous fum (MULTI VITAMIN ORAL) daily. magnesium gluconate (MAGONATE) 500 mg (27 mg elemental) tabletIndications :hypomagnesemia Take one tablet daily calcium carbonate-vitamin D3 1,250mg (500mg elemental) - 5 mcg (200 units) per tablet 4 tabs once a day mecobalamin, vitamin B12, 1,000 mcg tablet,disintegra ting Place 5,000 mcg under the tongue ALPRAZolam (XANAX) 1 mg tablet 10/26/2017 alendronate (FOSAMAX) 70 mg tablet 07/27/2017 sulfamethoxazole- trimethoprim (BACTRIM,SEPTRA) 800-160 mg per tablet 01/10/2019 nortriptyline (PAMELOR) 25 mg capsule Take 100 mg by mouth. 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
--- OUTSIDE RECORDS SUMMARY | 2024-12-21 16:34 | XMS_ITS | Clinical Summary ---
Author Organization [facility] Address [address] [place] [address] Care Team Providers Care Skating Carhop Name Role Phone Unavailable Primary Care Provider Unavailabl e Encounters Date Type Department Care Team Description 12/11/2024 External Device Data STL ABSTRACTION Provider, Abstract 12/05/2024 External Device Data STL ABSTRACTION Provider, Abstract 12/04/2024 External Device Data STL ABSTRACTION Provider, Abstract 10/03/2024 External Device Data STL ABSTRACTION Provider, Abstract 09/22/2024 External Device Data STL ABSTRACTION Provider, Abstract 09/21/2024 External Device Data STL ABSTRACTION Provider, Abstract from Last 3 Months Social History Tobacco Use Types Packs/Day Years Used Date Smoking Tobacco: Never Assessed Sex and Gender Information Value Date Recorded Sex Assigned at Not on file 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
--- OUTSIDE RECORDS SUMMARY | 2024-12-21 16:34 | XMS_ITS | Encounter Summary ---
Author Organization 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 Gender Identity Not on file Sexual Orientation Not on file documented as of this encounter Plan of Treatment Not on file documented as of this encounter Procedures Procedure Name Priority Date/Time Associated Diagnosis Comments SCAN - LABS 11/22/2022 documented in this encounter Results * SCAN - LABS (11/22/2022) us Provider Scanning Final Result documented in this encounter Visit Diagnoses Not on filedocumented in this encounter Care Teams Electric Scoop Operator Relationship Specialty Start Date End Date Jimenez Salazar MD [address] [facility] [address] [place] [address] PCP - General 11/08/16 Leodan Hazel MD [address] [facility] [address] [place], [place] [id number] Referring Physician Neuromuscular Medicine 02/09/18 documented as of this encounter
--- OUTSIDE RECORDS SUMMARY | 2024-12-21 16:34 | XMS_ITS | Encounter Summary ---
Author Organization [facility] Address [address] [place] [address] Phone Care Team Providers Care Director Nurses' Registry Name Role Phone Jimenez Salazar MD Primary Care Provider +1- [phone] Leodan Hazel MD Unavailable Encounter Details Date Type Department Care Team (Late st Contact Info) Description 01/05/2024 Orders Only [facility] Scanning, Provider Social History Tobacco Use Types Packs/Day Years Used Date Smoking Tobacco: Former Smokeless Tobacco: Never Sex and Gender Information Value Date Recorded Sex Assigned at Not on file 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 Gender Identity Not on file Sexual Orientation Not on file documented as of this encounter Plan of Treatment Not on file documented as of this encounter Procedures Procedure Name Priority Date/Time Associated Diagnosis Comments SCAN - LABS 01/05/2024 documented in this encounter Results * SCAN - LABS (01/05/2024) us Provider Scanning Final Result documented in this encounter Visit Diagnoses Not on filedocumented in this encounter Care Teams Director Nurses' Registry Relationship Specialty Start Date End Date Jimenez Salazar MD [address] [facility] [address] [place] [address] PCP - General 11/08/16 Leodan Hazel MD [address] [facility] [address] [place], [place] [id number] Referring Physician Neuromuscular Medicine 02/09/18 documented as of this encounter
--- OUTSIDE RECORDS SUMMARY | 2024-12-21 16:35 | XMS_ITS | Referral Summary ---
Author Organization [facility] Address [address] [place] [address] Care Team Providers Care Clinical Esthetician Name Role Phone Jimenez Salazar MD Primary Care Provider [phone]- [phone] Leodan Hazel MD Unavailable Encounters Date Type Department Care Team Description 11/15/2024 12:10 PM CDT - 11/15/2024 11:59 PM CDT Hospital Encounter [address] [address] Encounter for monitoring opioid maintenance therapy Discharge Disposition: Discharge to home or self care 11/15/2024 11:04 AM CDT - 11/15/2024 11:59 PM CDT Hospital Encounter [facility] [address] [place] [address] Hayden Barone MD Pain; Hematoma of right lower leg Discharge Disposition: Discharge to home or self care 11/15/2024 11:05 AM CDT Lab [facility] Endocrinology Metabolism and Lipid [address] [facility] [address] [place] [address] [place] [address] Anemia, unspecified type; Vitamin D deficiency; Routine adult health maintenance 11/15/2024 10:15 AM CDT Office Visit [facility] Rheumatology [address] [facility] [address] [place] [address] [place] [id number] Hayden Barone MD Osteoarthritis of spine with radiculopathy, lumbar region (Primary Dx); Encounter for monitoring opioid maintenance therapy; Vitamin D deficiency; Routine adult health maintenance; Pain; Hematoma of right lower leg; Anemia, unspecified type; Atelectasis 10/18/[address] [place] [address] Marbella Sandoval DNP 10/17/2024 11:30 AM CDT Clinical Support [address] [place] [address] Age-related osteoporosis 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 pathological fracture (Primary Dx); Other osteoporosis 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 pathological fracture 10/17/2024 12:00 PM CDT Office Visit [address] [place] [address] Marbella Sandoval DNP Other osteoporosis 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 pathological fracture (Primary Dx) from Last 3 Months Allergies No known active allergies Medications alendronate [...] ons:hypomagnes emia Take one tablet daily Active multivit-letter of credit document examiner als/ferrous fum (MULTI VITAMIN ORAL) daily. [...] capsule 1 capsule (2,000 Units total) Active [id number]# 17 ORAL Take by mouth Active taurine [...] mouth twice daily 60 capsule 11/22/19 25 06/05/2 025 Discontinued Active Problems Problem Noted Date [...] tapered to prednisone 10mg daily per neuromuscular. alf current use of systemic steroids 09/06 Assessment [...] 09/12/2014 Encounter for preventive health examination 03/18 Immunizations Immunization Administration Dates Next Due Influenza, [...] Pneumococcal Conjugate Pcv20 09/29/2023 ZOSTER Recombinant 12/01/2017,08/18/2017 Social History Tobacco Use Types Packs/Day Years Used Date Smoking Tobacco: Former Smokeless Tobacco: Never Tobacco Cessation:Counseling Given: Not Answered Sex and Gender Information Value Date Recorded Sex Assigned at Not on file Legal Sex Male 8:22 PM [employer] Gender Identity Not on file Sexual Orientation [...] 11/15/2024 10:03 AM CDT Plan of Treatment Not on file Procedures Procedure Name Priority Date/Time Associated Diagnosis [...] 2023. Barbiturates, ur Not Detected CutOff 200ng/mL [facility] Comment: Interpretive Data - Barbiturates: Samples containing greater than 200 ng/mL secobarbital or other cross-reacting barbiturate compounds are reported as positive. False positive and false negative results are possible. Confirmatory testing required for definitive results. Current Interpretive Data was last reviewed 2023. Benzodiazepines, ur Screen Positive, presumptive (A) CutOff 100ng/mL [facility] Comment: Interpretive Data - Benzodiazepines: Samples containing greater than 100 ng/mL nordiazepam or other cross-reacting compounds are reported as positive. False positive and false negative results are possible. Confirmatory testing required for definitive results. Current Interpretive Data was last reviewed 2023. Cannabinoids, ur Not Detected CutOff 50 ng/mL [facility] Comment: Interpretive Data - Cannabinoids: Samples containing greater than 50 ng/mL delta-9 THC -COOH or other cross- reacting compounds are reported as positive. False positive and false negative results are possible. Confirmatory testing required for definitive results. Current Interpretive Data was last reviewed 2023. Cocaine, ur Not Detected CutOff 150ng/mL [facility] Comment: Interpretive Data - Cocaine: Samples containing greater than 150 ng/mL benzoylecgonine or other cross- reacting compounds are reported as positive. False positive and false negative results are possible. Confirmatory testing required for definitive results. Current Interpretive Data was last reviewed 2023. Fentanyl, Ur Not Detected CutOff 5 ng/mL [facility] Comment: Interpretive Data - Fentanyl: Samples containing greater than 5 ng/mL norfentanyl, fentanyl, or other cross-reacting fentanyl compounds are reported as positive. False positive and false negative results are possible. Confirmatory testing required for definitive results. Current Interpretive Data was last reviewed 2023. Methadone, ur Not Detected CutOff 300ng/mL [facility] Comment: Interpretive Data - Methadone: Samples containing greater than 300 ng/mL d,l-methadone or other cross-reacting compounds are reported as positive. False positive and false negative results are possible. Confirmatory testing required for definitive results. Current Interpretive Data was last reviewed 2023. Opiates, ur Screen Positive, presumptive (A) CutOff 300ng/mL [facility] Comment: Interpretive Data - Opiates: Samples containing greater than 300 ng/mL morphine or other cross-reacting compounds are reported as positive. False positive and false negative results are possible. Confirmatory testing required for definitive results. Current Interpretive Data was last reviewed 2023. Oxycodone, ur Not Detected CutOff 100ng/mL [facility] Comment: Interpretive Data - Oxycodone: Samples containing greater than 100 ng/mL oxycodone or other cross-reacting compounds are reported as positive. False positive and false negative results are possible. Confirmatory testing required for definitive results. Current Interpretive Data was last reviewed 2023. Phencyclidine, ur Not Detected CutOff 25 ng/mL [facility] Comment: Interpretive Data - Phencyclidine: Samples containing greater than 25 ng/mL phencyclidine or other cross-reacting compounds are reported as positive. False positive and false negative results are possible. Confirmatory testing required for definitive results. Current Interpretive Data was last reviewed 2023. Urine Creatinine 114 mg/dL [facility] Comment: Interpretive Data Urine Creatinine: < 10 mg/dL is extremely dilute = or > 10 but < 20 mg/dL is dilute = or > 20 mg/dL is normal Current Interpretive Data was last revised on 2017. Urine 11/15/2024 12:1 0 PM CDT 11/15/2024 12:21 PM CDT Narrative [facility] - 11/15/2024 1:22 PM CDT Drug of Abuse screening is performed by immunoassay for medical purposes only. This is not to be used for Pain Management purposes. If Detected, confirmation testing will be performed for Amphetamines, Cocaine, Fentanyl, Methadone, Opiates, Oxycodone or Phencyclidine. Hayden Barone MD LAB URINE ORDERABLES Fin al Result [facility] Department [place] [address] * (ABNORMAL) Opiates Confirmation, Urine (11/15/2024 12:10 PM CDT) Codeine Conf, Ur Does Not Confirm CutOff 50 ng/mL 6- Acetylmorphine Conf, Ur Does Not Confirm CutOff 10 ng/mL [facility] Hydrocodone Conf, Ur Confirmed Positive(A) CutOff 50 ng/mL [facility] Morphine Conf, Ur Does Not Confirm CutOff 50 ng/mL [facility] Hydromorphone Conf, Ur Does Not Confirm CutOff 50 ng/mL [facility] Comment: Interpretive Data This test detects the presence or absence of drug compounds using LC Tandem mass spectrometry and is not intended to assess compliance with prescribed medications. While this test is highly specific, false positive and false negative results may occur in very rare circumstances. Contact the laboratory for consultation, if needed. Performance characteristics were determined by the [facility] in a manner consistent with CLIA requirement and has not been cleared or approved by the U.S. Food and Drug Administration. Current interpretive data was last revised 2020. Urine 11/15/2024 12:1 0 PM CDT 11/15/2024 12:29 PM CDT us Hayden Barone MD LAB URINE ORDERABLES Fin al Result [facility] Department [place] [address] * XR Tibia Fibula Right 2 Views [...] by: Yasmani Arnett M.D. Hayden Barone MD IM XR PROCEDURES Final Result * XR Chest [...] Homer Zabala MD, PHD Hayden Barone MD [facility] XR PROCEDURES Final Result * (ABNORMAL) CBC [...] Fin al Result [facility] * Vitamin D 25 hydroxy (11/15/2024 10:58 AM CDT) Pathologist [facility] Vitamin D 89.8 20.0 - 100.0 ng/mL [facility] Comment: VITAMIN D DEFICIENCY = LESS THAN or EQUAL TO 20 ng/mL VITAMIN D INSUFFICIENCY = 21 - 29 ng/mL VITAMIN D SUFFICIENT = 30-100 ng/mL Blood 11/15/2024 10:5 8 AM CDT 11/15/2024 12:31 PM CDT Hayden Barone MD LAB BLOOD ORDERABLES Fin al Result Performing Organization Address [facility] de Phone Number [facility] * Vitamin B12 (11/15/2024 10:58 AM CDT) Vitamin B12 1,050 232 - 1,245 pg/mL [facility] Blood 11/15/2024 10:5 8 AM CDT 11/15/2024 12:31 PM CDT Hayden Barone MD LAB BLOOD ORDERABLES Fin al Result Performing Organization Address [facility] de Phone Number [facility] * (ABNORMAL) [...] AM CDT 11/15/2024 12:31 PM CDT Narrative IM CORE LAB - 11/15/2024 1:36 PM CDT Specimen Hemolyzed us Hayden Barone MD LAB BLOOD ORDERABLES Fin al Result [facility] * Dexa TBS Axial Skeleton Bone Density 1 or more sites (10/17/2024 11:30 AM CDT) Anatomical Region Laterality Modality Wrist, Body N/A Radiographic Antonia ging Narrative 10/18/2024 3:47 PM CDT Patient Name: Luke Anrett Date of : 1940 Date of scan: 10/17/2024 Bone mineral density was performed on a [employer] Discovery Densitometer. Based on machine cross-calibration and [...] by the International Society of Clinical Densitometry. [id number] Marbella Sandoval [facility] DXA PROCEDURES Final Result from Last 3 Months [place] [address] MEDICARE COMMERCIAL GENERIC [facility] MEDICARE HMO [facility] MEDICARE HMO Care Teams Clinical Esthetician Relationship Specialty Start Date End Date Jimenez Salazar MD [address] [place] [address] PCP - General 11/08/16 Leodan Hazel MD [address] [place] [address] Referring Physician Neuromuscular Medicine 02/09/18
--- NOTE | 2024-12-21 17:02 | ED.NAVMDI ---
HPI - Nausea/Vomiting/Diarrhea General Chief complaint: Nausea/Vomiting/Diarrhea <Smita Buenrostro APRN - Last Filed: 12/21/24 17:04> Stated complaint: nausea, vomiting, diarrhea x 2-3 days <Smita Buenrostro APRN - Last Filed: 12/21/24 17:04> Time Seen by Provider: 12/21/24 16:50 <Smita Buenrostro APRN - Last Filed: 12/21/24 17:04> Focused HPI: Patient is an 84-year-old male who presents to the ER with complaints of flu-like symptoms for the past 3 days. He reports his most recent normal bowel movement was on Tuesday, 5 days ago. Patient denies any abdominal pain but endorses weakness. Per his family members, patient has only eaten ice chips for the past couple of days. He denies any recent fevers, chest pain, shortness of breath, or urinary symptoms. GENERAL: Well-appearing, well-nourished, and in no acute distress. HEAD: Normocephalic, atraumatic. CHEST: Clear to auscultation. ?No respiratory distress. HEART: Regular rate and rhythm.? NEURO: ?Alert and oriented x3. Patient screened in triage and initial orders placed.? ?Additional care and disposition to be based upon?diagnostic testing and treatment. <Smita Buenrostro APRN - Last Filed: 12/21/24 17:04> History of Present Illness HPI Narrative: 84-year-old male with history of hyperlipidemia presents to the ED with niece at bedside for nausea and vomiting for the past 3 days. Patient endorses associated decreased p.o. intake and loose stools. Last bowel movement was yesterday and loose. Denies obstipation, dysuria or hematuria, flank pain, fevers, cough or congestion. Denies chest pain or shortness of breath. Prior abdominal surgeries include a ventral hernia repair in 2022. <Angelique Soares PA-C - Last Filed: 12/22/24 14:08> Related Data Home medications: Home Medications ?Medication ?Instructions ?Recorded ?Confirmed ?Last Taken ?Type dorzolamide 22.3 mg-timolol 6.8 1 drp EACH EYE DAILY 06/19/19 12/22/2412/17/25 09:00 History mg/mL eye drops gabapentin 600 mg tablet 600 mg PO BID 06/19/19 12/22/24 12/17/24 09:00 History hydrocodone 7.5 mg-acetaminophen 1 tablet PO Q6-8H 06/19/19 12/22/24 12/17/24 09:00 History 325 mg tablet cholecalciferol (vitamin D3) 25 3,000 unit PO DAILY 09/03/19 12/22/24 12/17/24 09:00 History mcg (1,000 unit) capsule magnesium 250 mg tablet 250 mg PO DAILY 09/03/19 12/22/24 12/17/24 09:00 History multivitamin (Multiple Vitamins 1 tablet PO DAILY 09/03/19 12/22/24 12/17/24 09:00 History tablet) saw palmetto 500 mg capsule 500 mg PO BID 09/03/19 12/22/24 12/17/24 09:00 History nortriptyline 25 mg capsule 50 mg PO DAILY 09/04/19 12/22/24 12/17/24 09:00 History travoprost 0.004 % eye drops 1 drop ophthalmic (eye) QPM 03/07/20 12/22/24 12/17/24 21:00 History (Travatan Z) zinc acetate 50 mg (zinc) capsule 50 mg PO DAILY 03/07/20 12/22/24 12/17/24 09:00 History (Galzin) brimonidine 0.2 % eye drops 1 drp EACH EYE BID 12/22/24 12/22/24 12/17/24 21:00 History pantoprazole 20 mg tablet,delayed 20 mg PO DAILY 12/22/24 12/22/24 12/17/24 09:00 History release <Smita Buenrostro APRN - Last Filed: 12/21/24 17:04> Allergies/Adverse reactions: Allergies Allergy/AdvReac Type Severity Reaction Status Date / Time No Known Allergies Allergy Verified 12/22/24 01:14 <Smita Buenrostro APRN - Last Filed: 12/21/24 17:04> Review of Systems Review of Systems: All systems reviewed & are unremarkable except as noted in HPI and below <Angelique Soares PA-C - Last Filed: 12/22/24 14:08> [facility] Past Medical History Medical History: Medical History Bilateral hearing loss Low testosterone in male Low vitamin D level Chronic pain syndrome SHANNA (obstructive sleep apnea) Hyperlipidemia Neuropathy <Smita Buenrostro APRN - Last Filed: 12/21/24 17:04> Surgical History Surgical History: Surgical History Status post cataract extraction of both eyes with insertion of intraocular lens H/O inguinal hernia repair laparoscopic bilateral inguinal hernia repair with mesh, da Benny assisted 08/25/22 History of back surgery <Smita Buenrostro APRN - Last Filed: 12/21/24 17:04> Family History Family History: Family History Father Dementia Mother , 100 No problems noted. Sibling , cancer No problems noted. Sibling No problems noted. <Smita Buenrostro APRN - Last Filed: 12/21/24 17:04> Social History Social History: Social History Social History: Patient is his in January of 2024. They had been for over 40 years. They raised 1 daughter and 1 son. He did this smoke for a few years when he was younger. He denies any alcohol use. 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 Code status: Full code [facility] power of coffee attendant: Doris Arnett (daughter) Smoking packs per day: 1 Smoking cigarettes per day: 20.0 Years smoked: 12 Smoking pack-years: 12.00 Smoking status: Former smoker Second hand tobacco smoke exposure: No Alcohol intake: never Substance use: never Substance use type: does not use Do You Feel Safe in your Home?: Yes Lack of Transportation: No Lack of Food: Never True Current Housing: I Have Housing Concerned About Future Housing: No Difficulty Paying Gas/Electric Bills: No Difficulty Paying for Meds: No Currently Unemployed: No Education: Master's Degree or Higher Difficulty w/ Childcare or Family Care: No Living arrangements: alone Occupation/Education: retired 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 HEAD: Normocephalic, atraumatic. EYES: EOMI. ENT: Nares clear, no rhinorrhea or epistaxis. Mucous membranes dry NECK: Supple. CHEST: Clear to auscultation. No respiratory distress. HEART: Regular rate and rhythm. No murmur heard. Normal peripheral pulses. ABDOMEN: Normoactive bowel sounds. Abdomen soft with minimal tenderness to the periumbilical region. No rebound or rigidity. No CVA tenderness. EXTREMITIES: Normal range of motion. No edema. SKIN: Warm, dry, no rash. NEURO: No focal deficits. Alert and oriented x3 <Angelique Soares PA-C - Last Filed: 12/22/24 14:08> Course SHEARING SHED HAND/PA Physician Supervision This visit was performed by both a physician and an APC. I performed all aspects of the MDM as documented. <Douglas Reed MD - Last Filed: 12/22/24 06:56> Vital Signs Vital signs: Vital Signs Respiratory Rate 16 12/21/24 16:33 Oxygen Delivery Room Air 12/21/24 16:33 Temperature 97.6 F 12/22/24 06:00 Pulse Rate 70 12/22/24 06:00 Respiratory Rate 18 12/22/24 06:00 Blood Pressure 144/65 H 12/22/24 06:00 Pulse Oximetry 99 12/22/24 06:00 Oxygen Delivery Room Air 12/22/24 08:00 <Smita Buenrostro APRN - Last Filed: 12/21/24 17:04> Vital Signs Respiratory Rate 16 12/21/24 16:33 Oxygen Delivery Room Air 12/21/24 16:33 Temperature 97.6 F 12/22/24 06:00 Pulse Rate 70 12/22/24 06:00 Respiratory Rate 18 12/22/24 06:00 Blood Pressure 144/65 H 12/22/24 06:00 Pulse Oximetry 99 12/22/24 06:00 Oxygen Delivery Room Air 12/22/24 08:00 <Angelique Soares PA-C - Last Filed: 12/22/24 14:08> Vital Signs Respiratory Rate 16 12/21/24 16:33 Oxygen Delivery Room Air 12/21/24 16:33 Temperature 97.6 F 12/22/24 06:00 Pulse Rate 70 12/22/24 06:00 Respiratory Rate 18 12/22/24 06:00 Blood Pressure 144/65 H 12/22/24 06:00 Pulse Oximetry 99 12/22/24 06:00 Oxygen Delivery Room Air 12/22/24 08:00 <Douglas Reed MD - Last Filed: 12/22/24 06:56> MDM - Nausea/Vomiting/Diarrhea MDM Narrative Medical decision making narrative: 84-year-old male presents emergency department for nausea, vomiting and decreased p.o. intake for the past 3 days. Vitals stable. Exam is notable for mild periumbilical tenderness and dry mucous membranes. L of fluids and Zofran provided. CBC with leukocytosis of 17.1. Chemistries signified dehydration with hypernatremia 147, elevated BUN of 30, hypercalcemia 11.5. Mag within normal limits. EKG shows normal sinus rhythm with a rate of 83 bpm, normal [place] interval, normal QRS duration, normal QTC, nonspecific ST and T-wave abnormalities no acute ischemic changes. UA indicative of UTI with 51-100 white blood cells, 3-5 RBCs and 2+ leuk esterase. Viral swabs are negative. CT abdomen pelvis IMPRESSION: Small foci of consolidation in the bilateral lower lobes versus irregular nodules, recommend low-dose noncontrast CT of the chest follow-up in 3 months to evaluate for resolution. Multiple loops of dilated small bowel in the left abdomen, without a specific transition point. This may represent ileus, possibly with enteritis. Early obstruction is not excluded. Urinary bladder distention with mild wall thickening may be secondary to cystitis and/or outlet obstruction from prostatomegaly. Multiple bladder stones. Patient and family at bedside updated on results. Discussed small foci of consolidation in the bilateral lower lobes. Patient denies cough, chest pain or shortness of breath, I have low suspicion for pneumonia, more likely nodules. Plan was hospitals for dehydration/electrolyte derangements an further management. Pt started on Rocephin for UTI. I did discuss bladder stones with concurrent UTI with Dr. Melo who agrees to ABX treatment, advises post void bladder scan to evaluate for need for flores placement, otherwise no further intervention required. Discussed bowel findings with general surgeon, Dr. Antonio. Clinically I have low suspicion for a bowel obstruction given largely reassuring abdominal exam and on re-evaluation patient is resting comfortably in exam bed. Dr. Antonio agrees to trial clear liquid diet and hold on NG tube at this time. Discussed case with hospitalist, Dr. Joseph, who agrees to admission. Advises another bolus of fluids in the ED and maintenance fluids at 100 cc/hour with scheduled antiemetics. Advises med/surg. <Angelique Soares PA-C - Last Filed: 12/22/24 14:08> Lab Data Result diagrams: 12/22/24 05:08 12/22/24 05:08 <Smita Buenrostro APRN - Last Filed: 12/21/24 17:04> Labs: Lab Results 12/21/24 12/21/24 12/21/24 Range/Units 18:15 18:25 22:20 WBC 17.1 H (4.5-10.0) K/mm3 RBC 5.80 (4.6-6.20) M/mm3 Hgb 14.2 (14.0-18.0) g/dL Hct 46.2 (42.0-52.0) % MCV 79.7 L (80-100) fl MCH 24.5 L (26-34) pg MCHC 30.7 L (32-36) g/dl RDW 18.5 H (11.5-14.5) % Plt Count 286 (150-375) k/mm3 MPV 9.5 (7.4-10.4) fl Immature Gran % (Auto) 0.4 (0-0.5) % Neut % (Auto) 82.4 H (45.5-73.1) % Lymph % (Auto) 9.5 L (18.3-44.2) % [place]offey % (Auto) 7.5 (2.6-8.5) % Eos % (Auto) 0.0 (0-4.4) % Baso % (Auto) 0.2 (0.2-1.2) % Lymph # (Auto) 1.62 (0.9-3.2) K/mm3 [place]y # (Auto) 1.3 H (0.1-0.6) K/mm3 Eos # (Auto) 0.0 (0-0.3) K/mm3 Baso # (Auto) 0.0 (0.0-0.1) K/mm3 Abs Immat Gran (auto) 0.06 H (0.00-0.031) K/mm3 Absolute Neuts (auto) 14.1 H (1.3-6.7) K/mm3 Absolute Nucleated RBC 0.000 (0.0-0.012) K/mm3 Nucleated RBC % 0.0 (0.0-0.2) % Sodium 147 H (137-145) mmol/L Potassium 3.7 (3.4-5.0) mmol/L Chloride 108 H (98-107) mmol/L Carbon Dioxide 25 (22-30) mmol/L Anion Gap 14 H (4-12) mmol/L BUN 30 H (9-20) mg/dL Creatinine 1.05 (0.7-1.3) mg/dL Estim Creat Clear Calc 48 ml/min Estimated GFR > 60 (59 - ) Glucose 140 H (65-110) mg/dL Lactic Acid 2.1 H (0.7-2.0) mmol/L Calcium 11.5 H (8.4-10.2) mg/dL Magnesium 2.0 (1.6-2.3) mg/dL Total Bilirubin 0.9 (0.2-1.3) mg/dL AST 51 (17-59) U/L ALT 21 (6-50) U/L Alkaline Phosphatase 78 (38-126) U/L Total Protein 8.2 (6.3-8.2) g/dL Albumin 4.8 (3.5-5.1) g/dL Lipase 32 (23-300) U/L Urine Color Yellow (Yellow) Urine Appearance Clear (Clear) Urine pH 6.0 (5.0-9.0) Ur Specific [place] 1.015 (1.001-1.035) Urine Protein 1+ H (Negative) mg/dL Urine Glucose (UA) Negative (Negative) mg/dL Urine Ketones Negative (Negative) mg/dL Ur Blood (Man) 1+ H (Negative) Urine Nitrate Negative (Negative) Urine Bilirubin Negative (Negative) Urine Urobilinogen 0.2 (<2.0) mg/dL Leukocyte Esterase Rfl 2+ H (Negative) SARATH/UL Urine RBC 3-5 H (0-2) /hpf Urine WBC 51-100 H (0-3) /hpf Ur Squamous Epith Cells Occasional (Few) /hpf Urine Bacteria None seen /hpf Urine Casts 0-2 Influenza A (RT-PCR) Negative (Negative) Influenza B (RT-PCR) Negative (Negative) RSV (RT-PCR) Negative (Negative) SARS-CoV-2 RNA (RT-PCR) Negative (Negative) <Smita Buenrostro, TEACHER DRAMA - Last Filed: 12/21/24 17:04> Lab Results 12/21/24 12/21/24 12/21/24 Range/Units 18:15 18:25 22:20 WBC 17.1 H (4.5-10.0) K/mm3 RBC 5.80 (4.6-6.20) M/mm3 Hgb 14.2 (14.0-18.0) g/dL Hct 46.2 (42.0-52.0) % MCV 79.7 L (80-100) fl MCH 24.5 L (26-34) pg MCHC 30.7 L (32-36) g/dl RDW 18.5 H (11.5-14.5) % Plt Count 286 (150-375) k/mm3 MPV 9.5 (7.4-10.4) fl Immature Gran % (Auto) 0.4 (0-0.5) % Neut % (Auto) 82.4 H (45.5-73.1) % Lymph % (Auto) 9.5 L (18.3-44.2) % Coffey % (Auto) 7.5 (2.6-8.5) % Eos % (Auto) 0.0 (0-4.4) % Baso % (Auto) 0.2 (0.2-1.2) % Lymph # (Auto) 1.62 (0.9-3.2) K/mm3 [place]y # (Auto) 1.3 H (0.1-0.6) K/mm3 Eos # (Auto) 0.0 (0-0.3) K/mm3 Baso # (Auto) 0.0 (0.0-0.1) K/mm3 Abs Immat Gran (auto) 0.06 H (0.00-0.031) K/mm3 Absolute Neuts (auto) 14.1 H (1.3-6.7) K/mm3 Absolute Nucleated RBC 0.000 (0.0-0.012) K/mm3 Nucleated RBC % 0.0 (0.0-0.2) % Sodium 147 H (137-145) mmol/L Potassium 3.7 (3.4-5.0) mmol/L Chloride 108 H (98-107) mmol/L Carbon Dioxide 25 (22-30) mmol/L Anion Gap 14 H (4-12) mmol/L BUN 30 H (9-20) mg/dL Creatinine 1.05 (0.7-1.3) mg/dL Estim Creat Clear Calc 48 ml/min Estimated GFR > 60 (59 - ) Glucose 140 H (65-110) mg/dL Lactic Acid 2.1 H (0.7-2.0) mmol/L Calcium 11.5 H (8.4-10.2) mg/dL Magnesium 2.0 (1.6-2.3) mg/dL Total Bilirubin 0.9 (0.2-1.3) mg/dL AST 51 (17-59) U/L ALT 21 (6-50) U/L Alkaline Phosphatase 78 (38-126) U/L Total Protein 8.2 (6.3-8.2) g/dL Albumin 4.8 (3.5-5.1) g/dL Lipase 32 (23-300) U/L Urine Color Yellow (Yellow) Urine Appearance Clear (Clear) Urine pH 6.0 (5.0-9.0) Ur Specific [place] 1.015 (1.001-1.035) Urine Protein 1+ H (Negative) mg/dL Urine Glucose (UA) Negative (Negative) mg/dL Urine Ketones Negative (Negative) mg/dL Ur Blood (Man) 1+ H (Negative) Urine Nitrate Negative (Negative) Urine Bilirubin Negative (Negative) Urine Urobilinogen 0.2 (<2.0) mg/dL Leukocyte Esterase Rfl 2+ H (Negative) SARATH/UL Urine RBC 3-5 H (0-2) /hpf Urine WBC 51-100 H (0-3) /hpf Ur Squamous Epith Cells Occasional (Few) /hpf Urine Bacteria None seen /hpf Urine Casts 0-2 Influenza A (RT-PCR) Negative (Negative) Influenza B (RT-PCR) Negative (Negative) RSV (RT-PCR) Negative (Negative) SARS-CoV-2 RNA (RT-PCR) Negative (Negative) <Angelique Soares PA-C - Last Filed: 12/22/24 14:08> Lab Results 12/21/24 12/21/24 12/21/24 Range/Units 18:15 18:25 22:20 WBC 17.1 H (4.5-10.0) K/mm3 RBC 5.80 (4.6-6.20) M/mm3 Hgb 14.2 (14.0-18.0) g/dL Hct 46.2 (42.0-52.0) % MCV 79.7 L (80-100) fl MCH 24.5 L (26-34) pg MCHC 30.7 L (32-36) g/dl RDW 18.5 H (11.5-14.5) % Plt Count 286 (150-375) k/mm3 MPV 9.5 (7.4-10.4) fl Immature Gran % (Auto) 0.4 (0-0.5) % Neut % (Auto) 82.4 H (45.5-73.1) % Lymph % (Auto) 9.5 L (18.3-44.2) % Coffey % (Auto) 7.5 (2.6-8.5) % Eos % (Auto) 0.0 (0-4.4) % Baso % (Auto) 0.2 (0.2-1.2) % Lymph # (Auto) 1.62 (0.9-3.2) K/mm3 [place] # (Auto) 1.3 H (0.1-0.6) K/mm3 Eos # (Auto) 0.0 (0-0.3) K/mm3 Baso # (Auto) 0.0 (0.0-0.1) K/mm3 Abs Immat Gran (auto) 0.06 H (0.00-0.031) K/mm3 Absolute Neuts (auto) 14.1 H (1.3-6.7) K/mm3 Absolute Nucleated RBC 0.000 (0.0-0.012) K/mm3 Nucleated RBC % 0.0 (0.0-0.2) % Sodium 147 H (137-145) mmol/L Potassium 3.7 (3.4-5.0) mmol/L Chloride 108 H (98-107) mmol/L Carbon Dioxide 25 (22-30) mmol/L Anion Gap 14 H (4-12) mmol/L BUN 30 H (9-20) mg/dL Creatinine 1.05 (0.7-1.3) mg/dL Estim Creat Clear Calc 48 ml/min Estimated GFR > 60 (59 - ) Glucose 140 H (65-110) mg/dL Lactic Acid 2.1 H (0.7-2.0) mmol/L Calcium 11.5 H (8.4-10.2) mg/dL Magnesium 2.0 (1.6-2.3) mg/dL Total Bilirubin 0.9 (0.2-1.3) mg/dL AST 51 (17-59) U/L ALT 21 (6-50) U/L Alkaline Phosphatase 78 (38-126) U/L Total Protein 8.2 (6.3-8.2) g/dL Albumin 4.8 (3.5-5.1) g/dL Lipase 32 (23-300) U/L Urine Color Yellow (Yellow) Urine Appearance Clear (Clear) Urine pH 6.0 (5.0-9.0) Ur Specific [place] 1.015 (1.001-1.035) Urine Protein 1+ H (Negative) mg/dL Urine Glucose (UA) Negative (Negative) mg/dL Urine Ketones Negative (Negative) mg/dL Ur Blood (Man) 1+ H (Negative) Urine Nitrate Negative (Negative) Urine Bilirubin Negative (Negative) Urine Urobilinogen 0.2 (<2.0) mg/dL Leukocyte Esterase Rfl 2+ H (Negative) SARATH/UL Urine RBC 3-5 H (0-2) /hpf Urine WBC 51-100 H (0-3) /hpf Ur Squamous Epith Cells Occasional (Few) /hpf Urine Bacteria None seen /hpf Urine Casts 0-2 Influenza A (RT-PCR) Negative (Negative) Influenza B (RT-PCR) Negative (Negative) RSV (RT-PCR) Negative (Negative) SARS-CoV-2 RNA (RT-PCR) Negative (Negative) <Douglas Reed MD - Last Filed: 12/22/24 06:56> Discharge Plan Discharge Clinical Impression: Acute UTI, Bladder stones, Enteritis, Hypercalcemia, Hypernatremia <Smita Buenrostro APRN - Last Filed: 12/21/24 17:04> Patient Disposition: Still a Patient <Smita Buenrostro APRN - Last Filed: 12/21/24 17:04> Condition: Stable <Smita Buenrostro APRN - Last Filed: 12/21/24 17:04>
[2024-12-21 18:22] LABS: Basophils Percent Auto 0.2 % (0.2-1.2); Hematocrit 46.2 % (42.0-52.0); Hemoglobin 14.2 g/dL (14.0-18.0); Immature Granulocyte Absolute 0.06 K/mm3 (0.00-0.031); Immature Granulocyte Percent A 0.4 % (0-0.5); Lymphocytes Absolute Auto 1.62 K/mm3 (0.9-3.2); Lymphocytes Percent Auto 9.5 % (18.3-44.2); Mean Corpuscular HGB Conc 30.7 g/dl (32-36); Mean Corpuscular Hemoglobin 24.5 pg (26-34); Mean Corpuscular Volume 79.7 fl (80-100); Mean Platelet Volume 9.5 fl (7.4-10.4); Monocytes Absolute Auto 1.3 K/mm3 (0.1-0.6); Monocytes Percent Auto 7.5 % (2.6-8.5); Neutrophils Absolute Auto 14.1 K/mm3 (1.3-6.7); Neutrophils Percent Auto 82.4 % (45.5-73.1); Platelet Count Result 286 k/mm3 (150-375); Red Cell Distribution Width 18.5 % (11.5-14.5); White Blood Count 17.1 K/mm3 (4.5-10.0)
[2024-12-21 18:31] LABS: Alanine Aminotransferase 21 U/L (6-50); Albumin Level 4.8 g/dL (3.5-5.1); Alkaline Phosphatase 78 U/L (38-126); Anion Gap 14 mmol/L (4-12); Aspartate Amino Transferase 51 U/L (17-59); Bilirubin,Total 0.9 mg/dL (0.2-1.3); Blood Urea Nitrogen 30 mg/dL (9-20); Calcium 11.5 mg/dL (8.4-10.2); Carbon Dioxide 25 mmol/L (22-30); Chloride 108 mmol/L (98-107); Estimated CRCL calculation 48 ml/min; Estimated Glomerular Filt Rate > 60; Glucose 140 mg/dL (65-110); Lipase 32 U/L (23-300); Potassium 3.7 mmol/L (3.4-5.0); Sodium 147 mmol/L (137-145); Total Protein 8.2 g/dL (6.3-8.2)
[2024-12-21 18:36] LABS: Add Urine Microscopic? YES; Appearance Urine Clear (Clear); Bacteria Urine None Seen /hpf; Bilirubin Urine Negative (Negative); Blood Urine 1+ (Negative); Color Urine Yellow (Yellow); Glucose Urine UA Negative (Negative); Ketones Urine Negative (Negative); Leukocyte Esterase Ur 2+ LEU/UL (Negative); Nitrate Urine Negative (Negative); Non Pathogenic Casts 0-2; Protein Urine 1+ mg/dL (Negative); Specific Grav Ur 1.015 (1.001-1.035); Squamous Epithelial Cell Urine Occasional /hpf (Few); Urobilinogen Urine 0.2 mg/dL (<2.0); WBC Urine 51-100 /hpf (0-3)
[2024-12-21 18:57] LABS: Influenza A QL RT-PCR Negative (Negative); Influenza B QL RT-PCR Negative (Negative); RSV RNA, RT-PCR Negative (Negative); SARS-CoV-2 RNA PCR Negative (Negative)
--- OUTSIDE RECORDS SUMMARY | 2024-12-21 20:06 | XMS_ITS | Continuity of Care Document ---
Author Name [facility] Organization [facility] Care Team Providers Care Tool Room Gear Machine Operator Name Role Phone [facility] Unavailable Unavailable Problems Combined list of problems from Department of [facility] and [facility] facilities. It does not include entries that were removed or entered in error. Problem Status Onset Date Problem Type Date of Resolution Comments Source Exposure to Potentially Hazardous Substance (RUST [id number]) Active Condition November 21 Entered By: PATRICK GREEN I Comment: Agent [place] [facility] Diagnosis: ICD-10-CM Z77.29 Contact with and exposure to other hazardous substances Active Diagnosis [facility] Diagnosis: ICD-10-CM Z46.1 Encounter for fitting and adjustment of hearing aid Active Diagnosis [facility] Diagnosis: ICD-10-CM H90.3 Sensorineural hearing loss, bilateral Active Diagnosis [facility] Immunizations Combined list of available immunizations from the [facility] and [facility] facilities. Immunization Series Date Given Administered By Site Reaction Lot Number CVX Code Drug Director Audience Marketing Status Comments Source PNEUMOCOCCAL CONJUGATE PCV20, POLYSACCHARID E [id number] CONJUGATE, ADJUVANT, PF 1 2023 216 complet ed HISTORICA L INFORMATI ON - FROM [facility] COVID-19 ([employer]), MRNA, LNP-S, PF, 30 MCG/0.3 ML DOSE 1 2020 208 complet ed HISTORICA L INFORMATI ON - FROM OTHER [facility] INFLUENZA, HIGH-DOSE, TRIVALENT, PF 1 2018 135 complet ed HISTORICA L INFORMATI ON - FROM OTHER [facility] ZOSTER RECOMBINANT 1 2017 187 complet ed HISTORICA L INFORMATI ON - FROM OTHER [facility] Vital Signs Combined list of inpatient and outpatient Vital Signs from Department of Defense and Veterans Affairs, ranging from 12 months to all on record, depending upon the facility. Vital Sign Value Date Comments Source SYSTOLIC BLOOD PRESSURE 163 11/30/2024 14:27:36 [facility] DIASTOLIC BLOOD PRESSURE 81 11/30/2024 14:27:36 [facility] PULSE OXIMETRY 99 11/30/2024 14:27:36 [facility] WEIGHT 172.5 11/30/2024 14:27:36 [facility] BMI 25 kg/m2 11/30/2024 14:27:36 [facility] HEIGHT 70 11/30/2024 14:27:36 [facility] TEMPERATURE 97.6 11/30/2024 14:27:36 [facility] PULSE 79 11/30/2024 14:27:36 [facility] Encounters Combined list of: 1) Encounters from Department of Veterans Affairs facilities going backup to the last 18 months, not all [place] inpatient encounters are included; 2) Encounters from the Department of [facility] facilities going backup to 280 months. Location Location Details Encounter Type Encounter Number Reason For Visit Attending Provider ADM Date DC Date Status Disposition Source [facility] Outpatient Encounter [id number] 09/28 [facility] Outpatient Encounter [id number] 03/27 [facility] Outpatient Encounter [id number] 03/28 [facility] N [facility] Outpatient Encounter [id number] 06/04 [facility] EXAM BOTH EARS [id number] Diagnos is: ICD-10- CM H90.3 Sensori neural hearing loss, SHAISTA GarzonI B 07/16 [facility] SUP/ACCESS /DEV [id number] Diagnos is: ICD-10- CM H90.3 Sensori neural hearing loss, jarred jones MARIALUISA KURTZ B 08/27 [facility] N [facility] Outpatient Encounter [id number] 10/23 [facility] SUP/ACCESS /DEV [id number] Diagnos is: ICD-10- CM H90.3 Sensori neural hearing loss, jarred Jonathan Anne N 10/30 [facility] Outpatient Encounter [id number] EDY GREEN HIA I 11/21 [facility] XM&SLCTN BINAURL [id number] Diagnos is: ICD-10- CM Z46.1 Encount er for fitting and adjustm ent of hearing aid Jonathan MOISE N 11/22 [facility] N [facility] Outpatient Encounter [id number] WALLY SIEGEL 11/28 [facility] N [facility] DIVISION OFFICE O/P [place] 60 MIN [id number] Diagnos is: ICD-10- CM Z77.29 Contact with and exposur e to other hazardo us substan garry EDY GREEN HIA I 11/30 [facility] Plan of Care List of future care activities from Department of [facility] Affairs facilities. Additional future care activities may be listed in the Assessment and Plan section. Date/Time Care Activity Care Activity Detail Evelinai karo 12/27/2024 AMBULATORY - SURGERY AMBULATORY - SURGERY [facility]
--- OUTSIDE RECORDS SUMMARY | 2024-12-21 20:06 | XMS_ITS | Clinical Summary ---
Author Organization [facility] Address [address], [facility] [address] [place] [address] Phone Care Team Providers Care Pipe Straightener Name Role Phone Martin Jimenezcale Lane DO Primary Care Provider [phone] Allergies No known active allergies Medications HYDROcodone-acet [...] age to complete this [place] [address] MEDICARE [employer] Care Teams Pipe Straightener Relationship Specialty Start Date End Date Jimenez Salazar DO [address] [place] [address] PCP - General Internal Medicine 12/13/17
--- OUTSIDE RECORDS SUMMARY | 2024-12-21 20:06 | XMS_ITS | Continuity of Care Document ---
Author Organization [facility] Address [address] [place] [address] Phone Care Team Providers Care Railways Assistant Name Role Phone Heath Denton Unavailable Unavailable [...] Copied on Encounter Office/outpat ient Visit, Est [facility], [address] [place] [address] [address], [place], [place], [id number], [place] tel:[phone] [facility] No Information [address], [address], [place], [address], [place]. tel:[phone] [facility], [address], [place], [place], [id number], [place] tel:[phone] [facility] No Information [address] [employer] . [address] [facility], [address], [place], [place], [address], [place]. tel:[phone] Referring Provider: Heath Hennessy, [address], [place], [address]. tel:[phone] sulting Provider: Alma Delia Middleton, [address] [facility], [place], [place], [facility]. tel:[phone] Office/outpat ient Visit, Est [facility], [address], [place], [place], [id number], tel:[phone] [facility] No Information [address] On license of [facility] , [address], [place], [place], [facility], . tel:[phone] [facility], [address], [place], [place], [id number], tel:[phone] [facility] No Information 8 [address] [place], [place] [address] , [address], [place], [address], . tel:[phone] Family History Family Member Type Diagnosis Age At Onset No Information Payers Payer name Insurance type Covered green party ID Authoriza tion(s) No Information Social History [...]
--- OUTSIDE RECORDS SUMMARY | 2024-12-21 20:06 | XMS_ITS | Clinical Summary ---
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
--- NOTE | 2024-12-21 20:10 | ECG_ITS ---
Test Date: 2024-12-21 20:51:43 Measurements Intervals [place] Rate: 83 P: 62 FL: 190 QRS: 58 QRSD: 109 T: 43 QT: 295 QTc: 347 Interpretive Statements SINUS RHYTHM NONSPECIFIC ST & T-WAVE ABNORMALITY- ANT/INF LEADS BASELINE ARTIFACT- I, II, III, AVR, AVL, AVF BORDERLINE ECG No previous ECG available for comparison Electronically Signed On 12-22-2024 06:20:26 CDT by Shmuel Mueller D.O.
[2024-12-21] MEDS: SODIUM CHLORIDE 0.9% IV 1,000 ML 999 ML IV CONT ×2 (20:33→23:21)
[2024-12-21] MEDS: ONDANSETRON INJ 4 MG/2 ML VIAL IV PUSH (20:33)
[2024-12-21 22:38] LABS: Lactic Acid Reflex 2.1 mmol/L (0.7-2.0)
[2024-12-21] MEDS: SODIUM CHLORIDE 0.9% IV 1,000 ML 100 ML IV CONT (23:21)
[2024-12-22] VITALS (7 sets, daily range): BP systolic 120–144; BP diastolic 54–67; PULSE 70–80; RESP 16–18; TEMP 36.4–37.1; O2SAT 97–99; BMI 22.8
[2024-12-22 00:25] LABS: Reflex Lactic Acid Yes or No Add Lactic
--- NOTE | 2024-12-22 01:00 | ADMGEN ---
This patient, Darryn Arnett, was admitted to Medical Room 341-01. Patient/family oriented to hospital policies and general routines including ID bracelet, bed and alarms, visiting hours, pain management, procedures, bathroom and other care routines, personal items, smoking policy, room service/diet, and visiting hours. Information on how to activate the Rapid Response Team has been discussed. Patient/Family are encouraged to report perceived risks to care and to ask questions if they do not understand what they are told or what they should do.
--- NOTE | 2024-12-22 04:41 | PM.IMHP ---
H&P: HPI History of Present Illness Date/Time: 12/22/24 04:41 Chief Complaint: Nausea, vomiting and diarrhea Narrative: 84-year-old male with a history of glaucoma, obstructive sleep apnea, anxiety, GERD and chronic pain who presented to the ER via private vehicle due to nausea vomiting and diarrhea for 3 days. The patient actually reports that he has been more nauseated than anything. He reports that his stomach did not feel well any felt like he just needed to do something so he has been repetitively sticking his finger down his throat to vomit. He has been having some loose stools but no overt diarrhea. He is only having a little bit of watery stool output when he strains to urinate. He states that he feels like he is emptying his bladder all the way but on CT scan his bladder was quite distended. Nursing staff check postvoid residuals and despite patient having urinated over 300 mL he still had about 250 in urinary retention. Patient denies any known history of BPH. He denies any recent travel, recent ill contacts or antibiotic exposure. He denies any actual abdominal pain on palpation. He denies any dysuria or changes in urinary frequency. A history process was difficult and somewhat limited due to the patient's chronic hearing loss. Review of Systems Review of Systems: 12 systems were reviewed with pertinent positives and negatives per HPI. Except as documented in the HPI, all other systems were reviewed and are negative. [facility] Past Medical History Medical History (Updated 12/22/24 @ 07:43 by Clary Joseph DO) Bilateral hearing loss Low testosterone in male Low vitamin D level Chronic pain syndrome SHANNA (obstructive sleep apnea) Hyperlipidemia Neuropathy Surgical History Surgical History (Updated 12/22/24 @ 07:43 by Clary Joseph DO) Status post cataract extraction of both eyes with insertion of intraocular lens H/O inguinal hernia repair laparoscopic bilateral inguinal hernia repair with mesh, da Benny assisted 08/25/22 History of back surgery Family History Family History Father Dementia Mother , 100 No problems noted. Sibling , cancer No problems noted. Sibling No problems noted. Social History Social History (Updated 12/22/24 @ 07:46 by Clary Joseph DO) Social History: Patient is his in [place] of 2024. They had been for over 40 years. They raised 1 daughter and 1 son. He did this smoke for a few years when he was younger. He denies any alcohol use. 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 Code status: Full code [facility] power of casting and pasting supervisor: Doris Arnett (daughter) Smoking packs per day: 1 Smoking cigarettes per day: 20.0 Years smoked: 12 Smoking pack-years: 12.00 Smoking status: Former smoker Second hand tobacco smoke exposure: No Alcohol intake: never Substance use: never Substance use type: does not use Do You Feel Safe in your Home?: Yes Lack of Transportation: No Lack of Food: Never True Current Housing: I Have Housing Concerned About Future Housing: No Difficulty Paying Gas/Electric Bills: No Difficulty Paying for Meds: No Currently Unemployed: No Education: Master's Degree or Higher Difficulty w/ Childcare or Family Care: No Living arrangements: alone Occupation/Education: retired 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 Gender identity (if verbalized by the patient): Male Spiritual care concerns: No Meds Home Medications and Allergies Home Medications ?Medication ?Instructions ?Recorded ?Confirmed ?Type dorzolamide 22.3 mg-timolol 6.8 1 drp EACH EYE DAILY 06/19/19 12/22/24 History mg/mL eye drops gabapentin 600 mg tablet 600 mg PO BID 06/19/19 12/22/24 History hydrocodone 7.5 mg-acetaminophen 1 tablet PO Q6-8H 06/19/19 12/22/24 History 325 mg tablet cholecalciferol (vitamin D3) 25 3,000 unit PO DAILY 09/03/19 12/22/24 History mcg (1,000 unit) capsule magnesium 250 mg tablet 250 mg PO DAILY 09/03/19 12/22/24 History multivitamin (Multiple Vitamins 1 tablet PO DAILY 09/03/19 12/22/24 History tablet) saw palmetto 500 mg capsule 500 mg PO BID 09/03/19 12/22/24 History nortriptyline 25 mg capsule 50 mg PO DAILY 09/04/19 12/22/24 History travoprost 0.004 % eye drops 1 drop ophthalmic (eye) QPM 03/07/20 12/22/24 History (Travatan Z) zinc acetate 50 mg (zinc) capsule 50 mg PO DAILY 03/07/20 12/22/24 History (Galzin) nabumetone 750 mg tablet 750 mg PO BID #60 tabs 08/15/23 12/22/24 Rx hydrocortisone 2.5 % topical cream 1 applic RECTAL BID PRN 08/30/24 12/22/24 Rx with perineal applicator hemorrhoids #30 grams (Proctozone-HC) alprazolam 1 mg tablet 1 mg PO HS PRN anxiety #30 tabs 11/23/24 12/22/24 Rx brimonidine 0.2 % eye drops 1 drp EACH EYE BID 12/22/24 12/22/24 History pantoprazole 20 mg tablet,delayed 20 mg PO DAILY 12/22/24 12/22/24 History release Allergies Allergy/AdvReac Type Severity Reaction Status Date / Time No Known Allergies Allergy Verified 12/22/24 01:14 Vital Signs Vital Signs - 24 hr 12/21/24 16:33 12/21/24 16:36 12/21/24 18:36 Temperature 97.6 F 97.4 F L Pulse Rate 95 87 Respiratory Rate 16 20 20 Blood Pressure 146/68 H 120/77 Pulse Oximetry 95 99 Oxygen Delivery Room Air 12/21/24 19:40 12/21/24 23:15 12/21/24 23:16 Temperature 98.5 F Pulse Rate 80 Respiratory Rate 20 Blood Pressure 145/65 H 135/66 Pulse Oximetry 100 97 98 Oxygen Delivery 12/21/24 23:31 12/21/24 23:32 12/21/24 23:45 Temperature Pulse Rate Respiratory Rate Blood Pressure 124/65 Pulse Oximetry 100 97 98 Oxygen Delivery 12/21/24 23:46 12/22/24 00:00 12/22/24 00:01 Temperature Pulse Rate Respiratory Rate Blood Pressure 142/64 H 129/67 Pulse Oximetry 99 98 98 Oxygen Delivery 12/22/24 00:16 12/22/24 00:44 12/22/24 02:22 Temperature 98.3 F Pulse Rate 80 Respiratory Rate 16 Blood Pressure 132/64 130/61 Pulse Oximetry 98 98 Oxygen Delivery Room Air Exam Narrative: Weight 72.4 kg BMI 22.9 Const: Other: No acute distress, well-developed well-nourished, appears stated age HENMT: Other: Mucous membranes are tacky, posterior oral pharyngeal erythema to the soft palate and oropharynx, poor dentition Eyes: Other: Pupils are equal and reactive, no scleral icterus no conjunctival pallor, lens implants noted bilaterally Neck: Other: No JVD, large neck circumference Resp: Other: Clear to auscultation bilaterally, no increased work of breathing Cardio: Other: Regular rate, regular rhythm, 2+ bilateral radial pedal pulses, no JVD GI: Other: Hypoactive bowel sounds, nontender, nondistended, soft, no organomegaly Skin: Other: No pallor, non jaundice Neuro: Other: Alert oriented to person, year and place use confused as to the month thought the month was still November, speech is clear and fluent, no facial asymmetry, marked hearing loss, no acute localizing neurologic deficits noted during the course of casual conversation Extrem: Other: No clubbing, cyanosis or edema, moves all extremities equally Psych: Other: Appropriate mood and affect, pleasant and cooperative, judgment and insight intact H&P: Results Labs Labs: Laboratory Tests 12/21/24 18:15 12/21/24 18:15 12/21/24 12/21/24 12/21/24 18:15 18:25 22:20 WBC 17.1 H RBC 5.80 Hgb 14.2 Hct 46.2 MCV 79.7 L MCH 24.5 L MCHC 30.7 L RDW 18.5 H Plt Count 286 MPV 9.5 Immature Gran % (Auto) 0.4 Neut % (Auto) 82.4 H Lymph % (Auto) 9.5 L [place] % (Auto) 7.5 Eos % (Auto) 0.0 Baso % (Auto) 0.2 Lymph # (Auto) 1.62 [place] # (Auto) 1.3 H Eos # (Auto) 0.0 Baso # (Auto) 0.0 Abs Immat Gran (auto) 0.06 H Absolute Neuts (auto) 14.1 H Absolute Nucleated RBC 0.000 Nucleated RBC % 0.0 Sodium 147 H Potassium 3.7 Chloride 108 H Carbon Dioxide 25 Anion Gap 14 H BUN 30 H Creatinine 1.05 Estim Creat Clear Calc 48 Estimated GFR > 60 Glucose 140 H Lactic Acid 2.1 H Calcium 11.5 H Magnesium 2.0 Total Bilirubin 0.9 AST 51 ALT 21 Alkaline Phosphatase 78 Total Protein 8.2 Albumin 4.8 Lipase 32 Urine Color Yellow Urine Appearance Clear Urine pH 6.0 Ur Specific [place] 1.015 Urine Protein 1+ H Urine Glucose (UA) Negative Urine Ketones Negative Ur Blood (Man) 1+ H Urine Nitrate Negative Urine Bilirubin Negative Urine Urobilinogen 0.2 Leukocyte Esterase Rfl 2+ H Urine RBC 3-5 H Urine WBC 51-100 H Ur Squamous Epith Cells Occasional Urine Bacteria None seen Urine Casts 0-2 Influenza A (RT-PCR) Negative Influenza B (RT-PCR) Negative RSV (RT-PCR) Negative SARS-CoV-2 RNA (RT-PCR) Negative Impressions Abdomen/Pelvis CT 12/21/24 20:29 IMPRESSION: Small foci of consolidation in the bilateral lower lobes versus irregular nodules, recommend low-dose noncontrast CT of the chest follow-up in 3 months to evaluate for resolution. Multiple loops of dilated small bowel in the left abdomen, without a specific transition point. This may represent ileus, possibly with enteritis. Early obstruction is not excluded. Urinary bladder distention with mild wall thickening may be secondary to cystitis and/or outlet obstruction from prostatomegaly. Multiple bladder stones. EKG: Normal sinus rhythm All imaging and EKGs personally reviewed and interpreted. And unless stated otherwise agree with radiologic and cardiology interpretation. Assessment and Plan Assessment and plan (1) Hypernatremia: Code(s): E87.0 - Hyperosmolality and hypernatremia Status: Acute (2) Hypercalcemia: Code(s): E83.52 - Hypercalcemia Status: Acute (3) Enteritis: Code(s): K52.9 - Noninfective gastroenteritis and colitis, unspecified Status: Acute (4) Bladder stones: Code(s): N21.0 - Calculus in bladder Status: Acute (5) Abnormal urinalysis: Code(s): R82.90 - Unspecified abnormal findings in urine Status: Acute (6) Acute dehydration: Code(s): E86.0 - Dehydration Status: Acute (7) Incomplete emptying of bladder due to benign prostatic hyperplasia: Code(s): N40.1 - Benign prostatic hyperplasia with lower urinary tract symptoms; R33.9 - Retention of urine, unspecified Status: Acute (8) Obstructive sleep apnea on CPAP: Code(s): G47.33 - Obstructive sleep apnea (adult) (pediatric) Status: Acute Plan Patient has hyperosmolar hypernatremia due to dehydration secondary to enteritis. The patient has been forcing emesis which is cause some oral pharyngeal irritation. Patient is having significant nausea but the amount of diarrhea it does not seem to be a let significant. Will place patient on Protonix IV q.12 hours. Ileus may be possibility but bowel obstruction seems less likely. Abdominal exam completely benign. Will continue IV fluid hydration and repeat electrolyte panel in a.m.. Patient does have significant leukocytosis but this could be in part due to hemoconcentration. UA was abnormal although he denies any significant urinary symptoms. Although UTI could cause some of the patient's nausea and abdominal discomfort. Will monitor postvoid residuals in place patient on Flomax. Patient can follow-up as outpatient with Urology regarding bladder stones and BPH. Patient has been started on empiric antibiotic therapy with Rocephin. Urine cultures and blood cultures are pending. Will order auto titrating BiPAP/CPAP for obstructive sleep apnea. Patient has been admitted as observation status. Quality VTE Prophylaxis VTE prophylaxis: pharmacologic ordered (Lovenox 40 mg subQ daily.) Hospitalist [facility] Advance Care Plan I have confirmed that the patient's Advanced Care Plan is present, code status is documented, or surrogate decision maker is listed in patient medical record.: Yes Medication Reconciliation I have utilized all available resources to obtain, update and review the patients current medications (includes all prescriptions, OTC, herbals, cannabis, and nutritional supplements).: Yes
[2024-12-22 05:22] LABS: Basophils Percent Auto 0.3 % (0.2-1.2); Eosinophils Percent Auto 0.3 % (0-4.4); Hematocrit 39.6 % (42.0-52.0); Hemoglobin 12.2 g/dL (14.0-18.0); Immature Granulocyte Absolute 0.07 K/mm3 (0.00-0.031); Immature Granulocyte Percent A 0.5 % (0-0.5); Lymphocytes Absolute Auto 1.35 K/mm3 (0.9-3.2); Lymphocytes Percent Auto 10.2 % (18.3-44.2); Mean Corpuscular HGB Conc 30.8 g/dl (32-36); Mean Corpuscular Hemoglobin 24.8 pg (26-34); Mean Corpuscular Volume 80.5 fl (80-100); Mean Platelet Volume 9.9 fl (7.4-10.4); Monocytes Absolute Auto 1.4 K/mm3 (0.1-0.6); Monocytes Percent Auto 10.4 % (2.6-8.5); Neutrophils Absolute Auto 10.4 K/mm3 (1.3-6.7); Neutrophils Percent Auto 78.3 % (45.5-73.1); Platelet Count Result 253 k/mm3 (150-375); Red Blood Count 4.92 M/mm3 (4.6-6.20); Red Cell Distribution Width 17.4 % (11.5-14.5); White Blood Count 13.3 K/mm3 (4.5-10.0)
[2024-12-22 05:34] LABS: Lactic Acid Reflex 1.3 mmol/L (0.7-2.0)
[2024-12-22 05:41] LABS: Alanine Aminotransferase 17 U/L (6-50); Albumin Level 3.9 g/dL (3.5-5.1); Alkaline Phosphatase 64 U/L (38-126); Anion Gap 9 mmol/L (4-12); Aspartate Amino Transferase 48 U/L (17-59); Bilirubin,Total 0.5 mg/dL (0.2-1.3); Blood Urea Nitrogen 25 mg/dL (9-20); Calcium 9.4 mg/dL (8.4-10.2); Carbon Dioxide 24 mmol/L (22-30); Chloride 111 mmol/L (98-107); Estimated CRCL calculation 50 ml/min; Estimated Glomerular Filt Rate > 60; Glucose 115 mg/dL (65-110); Potassium 3.3 mmol/L (3.4-5.0); Sodium 144 mmol/L (137-145); Total Protein 6.6 g/dL (6.3-8.2)
[2024-12-22] MEDS: ENOXAPARIN 40 MG/0.4 ML SYRINGE SUB-Q (08:32)
[2024-12-22] MEDS: CHOLECALCIFEROL (VITAMIN D3) 25 MCG (1,000 UNITS) TABLET 75 MCG PO (08:32)
[2024-12-22] MEDS: PANTOPRAZOLE SODIUM IV 40 MG VIAL IV PUSH ×2 (08:32→20:30)
[2024-12-22] MEDS: GABAPENTIN 300 MG CAPSULE 600 MG PO ×2 (08:32→17:31)
[2024-12-22] MEDS: TAMSULOSIN HCL 0.4 MG CAPSULE PO (08:33)
[2024-12-22] MEDS: MULTIVITAMINS THERAPEUTIC TAB (*BKC) 1 TABLET PO (08:33)
[2024-12-22] MEDS: MAGNESIUM OXIDE 200 MG TABLET PO (08:33)
[2024-12-22] MEDS: NORTRIPTYLINE HCL 25 MG CAPSULE 50 MG PO (08:33)
[2024-12-22] MEDS: BRIMONIDINE TARTRATE 0.2% OP SOLN 5 ML BTL 1 DROP EACH EYE ×2 (08:34→20:30)
[2024-12-22] MEDS: DORZOLAMIDE/TIMOLOL OPHTH SOL 10 ML BOTTLE 1 DROP EACH EYE (08:34)
--- NOTE | 2024-12-22 11:43 | P.CONGS_ITS ---
Assessment and Plan Assessment and plan (1) Enteritis: Code(s): K52.9 - Noninfective gastroenteritis and colitis, unspecified Status: Acute Assessment and Plan: No evidence of mechanical obstruction, likely gastroenteritis, continue supportive medical care at this point, advance diet as tolerated History of Present Illness Consult details Consult date: 12/22/24 Reason for consult: abdominal pain Requesting physician: Angelique Soares PA-C Narrative: The patient is an 84-year-old male presenting to the emergency department complaining of intractable nausea, intermittent loose stools, generalized malaise, poor appetite over the last 3-4 days. The patient reports some episodes of emesis that were self-induced. The patient reports bloating and discomfort, however no abdominal pain. The patient reports he has been having intermittent loose stools and flatus. The patient denies any fevers or chills. Review of Systems 2 Review of Systems: All systems reviewed & are unremarkable except as noted in HPI and below PMFSH Past Medical History Medical History Bilateral hearing loss Low testosterone in male Low vitamin D level Chronic pain syndrome SHANNA (obstructive sleep apnea) Hyperlipidemia Neuropathy Surgical History Surgical History Status post cataract extraction of both eyes with insertion of intraocular lens H/O inguinal hernia repair laparoscopic bilateral inguinal hernia repair with mesh, da Benny assisted 08/25/22 History of back surgery Family History Family History Father Dementia Mother , 100 No problems noted. Sibling , cancer No problems noted. Sibling No problems noted. Social History Social History Social History: Patient is his in January of 2024. They had been for over 40 years. They raised 1 daughter and 1 son. He did this smoke for a few years when he was younger. He denies any alcohol use. 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: Doris Arnett (daughter) Smoking packs per day: 1 Smoking cigarettes per day: 20.0 Years smoked: 12 Smoking pack-years: 12.00 Smoking status: Former smoker Second hand tobacco smoke exposure: No Alcohol intake: never Substance use: never Substance use type: does not use Do You Feel Safe in your Home?: Yes Lack of Transportation: No Lack of Food: Never True Current Housing: I Have Housing Concerned About Future Housing: No Difficulty Paying Gas/Electric Bills: No Difficulty Paying for Meds: No Currently Unemployed: No Education: Master's Degree or Higher Difficulty w/ Childcare or Family Care: No Living arrangements: alone Occupation/Education: retired 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 Gender identity (if verbalized by the patient): Male Spiritual care concerns: No Meds Home Medications and Allergies Home Medications ?Medication ?Instructions ?Recorded ?Confirmed ?Type dorzolamide 22.3 mg-timolol 6.8 1 drp EACH EYE DAILY 06/19/19 12/22/24 History mg/mL eye drops gabapentin 600 mg tablet 600 mg PO BID 06/19/19 12/22/24 History hydrocodone 7.5 mg-acetaminophen 1 tablet PO Q6-8H 06/19/19 12/22/24 History 325 mg tablet cholecalciferol (vitamin D3) 25 3,000 unit PO DAILY 09/03/19 12/22/24 History mcg (1,000 unit) capsule magnesium 250 mg tablet 250 mg PO DAILY 09/03/19 12/22/24 History multivitamin (Multiple Vitamins 1 tablet PO DAILY 09/03/19 12/22/24 History tablet) saw palmetto 500 mg capsule 500 mg PO BID 09/03/19 12/22/24 History nortriptyline 25 mg capsule 50 mg PO DAILY 09/04/19 12/22/24 History travoprost 0.004 % eye drops 1 drop ophthalmic (eye) QPM 03/07/20 12/22/24 History (Travatan Z) zinc acetate 50 mg (zinc) capsule 50 mg PO DAILY 03/07/20 12/22/24 History (Galzin) nabumetone 750 mg tablet 750 mg PO BID #60 tabs 08/15/23 12/22/24 Rx hydrocortisone 2.5 % topical cream 1 applic RECTAL BID PRN 08/30/24 12/22/24 Rx with perineal applicator hemorrhoids #30 grams (Proctozone-HC) alprazolam 1 mg tablet 1 mg PO HS PRN anxiety #30 tabs 11/23/24 12/22/24 Rx brimonidine 0.2 % eye drops 1 drp EACH EYE BID 12/22/24 12/22/24 History pantoprazole 20 mg tablet,delayed 20 mg PO DAILY 12/22/24 12/22/24 History release Allergies Allergy/AdvReac Type Severity Reaction Status Date / Time No Known Allergies Allergy Verified 12/22/24 01:14 Vital Signs Vital Signs - 24 hr 12/21/24 16:33 12/21/24 16:36 12/21/24 18:36 Temperature 36.4 C 36.3 C L Pulse Rate 95 87 Respiratory Rate 16 20 20 Blood Pressure 146/68 H 120/77 Pulse Oximetry 95 99 Oxygen Delivery Room Air 12/21/24 19:40 12/21/24 23:15 12/21/24 23:16 Temperature 36.9 C Pulse Rate 80 Respiratory Rate 20 Blood Pressure 145/65 H 135/66 Pulse Oximetry 100 97 98 Oxygen Delivery 12/21/24 23:31 12/21/24 23:32 12/21/24 23:45 Temperature Pulse Rate Respiratory Rate Blood Pressure 124/65 Pulse Oximetry 100 97 98 Oxygen Delivery 12/21/24 23:46 12/22/24 00:00 12/22/24 00:01 Temperature Pulse Rate Respiratory Rate Blood Pressure 142/64 H 129/67 Pulse Oximetry 99 98 98 Oxygen Delivery 12/22/24 00:16 12/22/24 00:44 12/22/24 02:22 Temperature 36.8 C Pulse Rate 80 Respiratory Rate 16 Blood Pressure 132/64 130/61 Pulse Oximetry 98 98 Oxygen Delivery Room Air 12/22/24 06:00 12/22/24 08:00 Temperature 36.4 C Pulse Rate 70 Respiratory Rate 18 Blood Pressure 144/65 H Pulse Oximetry 99 Oxygen Delivery Room Air Exam 2 Const: General: cooperative, comfortable and no acute distress HENMT: Head: normal to inspection, normocephalic and atraumatic Eyes: General: appearance normal, both eyes and all related structures Neck: Neck: normal visual inspection, full ROM and no lymphadenopathy Resp: Auscultation: clear to auscultation bilaterally Cardio: Rate: regular rate Rhythm: regular rhythm GI: Inspection: normal to inspection and distended GI Palp: No abdominal tenderness, Yes Soft to palpation, No Guarding due to palpation present (GI) and No Rigid due to palpation Skin: General skin exam: normal color and no rashes or lesions noted Neuro: General: patient oriented x3 and CN's II-XI intact bilaterally Extrem: General: normal to inspection and full ROM Results Labs 12/22/24 05:08 12/22/24 05:08 Labs: Abnormal lab results 12/21/24 12/21/24 12/21/24 Range/Units 18:15 18:25 22:20 WBC 17.1 H (4.5-10.0) K/mm3 Hgb (14.0-18.0) g/dL Hct (42.0-52.0) % MCV 79.7 L (80-100) fl MCH 24.5 L (26-34) pg MCHC 30.7 L (32-36) g/dl RDW 18.5 H (11.5-14.5) % Neut % (Auto) 82.4 H (45.5-73.1) % Lymph % (Auto) 9.5 L (18.3-44.2) % Coles % (Auto) (2.6-8.5) % Coles # (Auto) 1.3 H (0.1-0.6) K/mm3 Abs Immat Gran (auto) 0.06 H (0.00-0.031) K/mm3 Absolute Neuts (auto) 14.1 H (1.3-6.7) K/mm3 Sodium 147 H (137-145) mmol/L Potassium (3.4-5.0) mmol/L Chloride 108 H (98-107) mmol/L Anion Gap 14 H (4-12) mmol/L BUN 30 H (9-20) mg/dL Glucose 140 H (65-110) mg/dL Lactic Acid 2.1 H (0.7-2.0) mmol/L Calcium 11.5 H (8.4-10.2) mg/dL Urine Protein 1+ H (Negative) mg/dL Ur Blood (Man) 1+ H (Negative) Leukocyte Esterase Rfl 2+ H (Negative) SARATH/UL Urine RBC 3-5 H (0-2) /hpf Urine WBC 51-100 H (0-3) /hpf 12/22/24 Range/Units 05:08 WBC 13.3 H (4.5-10.0) K/mm3 Hgb 12.2 L (14.0-18.0) g/dL Hct 39.6 L (42.0-52.0) % MCV (80-100) fl MCH 24.8 L (26-34) pg MCHC 30.8 L (32-36) g/dl RDW 17.4 H (11.5-14.5) % Neut % (Auto) 78.3 H (45.5-73.1) % Lymph % (Auto) 10.2 L (18.3-44.2) % Coles % (Auto) 10.4 H (2.6-8.5) % Coles # (Auto) 1.4 H (0.1-0.6) K/mm3 Abs Immat Gran (auto) 0.07 H (0.00-0.031) K/mm3 Absolute Neuts (auto) 10.4 H (1.3-6.7) K/mm3 Sodium (137-145) mmol/L Potassium 3.3 L (3.4-5.0) mmol/L Chloride 111 H (98-107) mmol/L Anion Gap (4-12) mmol/L BUN 25 H (9-20) mg/dL Glucose 115 H (65-110) mg/dL Lactic Acid (0.7-2.0) mmol/L Calcium (8.4-10.2) mg/dL Urine Protein (Negative) mg/dL Ur Blood (Man) (Negative) Leukocyte Esterase Rfl (Negative) SARATH/UL Urine RBC (0-2) /hpf Urine WBC (0-3) /hpf Diabetes panel 12/21/24 12/22/24 Range/Units 18:15 05:08 Sodium 147 H 144 (137-145) mmol/L Potassium 3.7 3.3 L (3.4-5.0) mmol/L Chloride 108 H 111 H (98-107) mmol/L Carbon Dioxide 25 24 (22-30) mmol/L BUN 30 H 25 H (9-20) mg/dL Creatinine 1.05 0.99 (0.7-1.3) mg/dL Glucose 140 H 115 H (65-110) mg/dL Calcium 11.5 H 9.4 (8.4-10.2) mg/dL AST 51 48 (17-59) U/L ALT 21 17 (6-50) U/L Alkaline Phosphatase 78 64 (38-126) U/L Total Protein 8.2 6.6 (6.3-8.2) g/dL Albumin 4.8 3.9 (3.5-5.1) g/dL Calcium panel 12/21/24 12/22/24 Range/Units 18:15 05:08 Calcium 11.5 H 9.4 (8.4-10.2) mg/dL Albumin 4.8 3.9 (3.5-5.1) g/dL Pituitary panel 12/21/24 12/22/24 Range/Units 18:15 05:08 Sodium 147 H 144 (137-145) mmol/L Potassium 3.7 3.3 L (3.4-5.0) mmol/L Chloride 108 H 111 H (98-107) mmol/L Carbon Dioxide 25 24 (22-30) mmol/L BUN 30 H 25 H (9-20) mg/dL Creatinine 1.05 0.99 (0.7-1.3) mg/dL Glucose 140 H 115 H (65-110) mg/dL Calcium 11.5 H 9.4 (8.4-10.2) mg/dL Adrenal panel 12/21/24 12/22/24 Range/Units 18:15 05:08 Sodium 147 H 144 (137-145) mmol/L Potassium 3.7 3.3 L (3.4-5.0) mmol/L Chloride 108 H 111 H (98-107) mmol/L Carbon Dioxide 25 24 (22-30) mmol/L BUN 30 H 25 H (9-20) mg/dL Creatinine 1.05 0.99 (0.7-1.3) mg/dL Glucose 140 H 115 H (65-110) mg/dL Calcium 11.5 H 9.4 (8.4-10.2) mg/dL Total Bilirubin 0.9 0.5 (0.2-1.3) mg/dL AST 51 48 (17-59) U/L ALT 21 17 (6-50) U/L Alkaline Phosphatase 78 64 (38-126) U/L Total Protein 8.2 6.6 (6.3-8.2) g/dL Albumin 4.8 3.9 (3.5-5.1) g/dL All other labs normal. Imaging Abdomen CT scan report/results: report reviewed and image reviewed
--- NOTE | 2024-12-22 15:46 | PM.IMPN ---
Progress Note: A&P Assessment and Plan (1) Hypernatremia: Code(s): E87.0 - Hyperosmolality and hypernatremia Status: Acute (2) Hypercalcemia: Code(s): E83.52 - Hypercalcemia Status: Acute (3) Enteritis: Code(s): K52.9 - Noninfective gastroenteritis and colitis, unspecified Status: Acute (4) Bladder stones: Code(s): N21.0 - Calculus in bladder Status: Acute (5) Abnormal urinalysis: Code(s): R82.90 - Unspecified abnormal findings in urine Status: Acute (6) Acute dehydration: Code(s): E86.0 - Dehydration Status: Acute (7) Incomplete emptying of bladder due to benign prostatic hyperplasia: Code(s): N40.1 - Benign prostatic hyperplasia with lower urinary tract symptoms; R33.9 - Retention of urine, unspecified Status: Acute (8) Obstructive sleep apnea on CPAP: Code(s): G47.33 - Obstructive sleep apnea (adult) (pediatric) Status: Acute Plan Patient has hyperosmolar hypernatremia due to dehydration secondary to enteritis. The patient has been forcing emesis which is cause some oral pharyngeal irritation. Patient is having significant nausea but the amount of diarrhea it does not seem to be a let significant. Will place patient on Protonix IV q.12 hours. Ileus may be possibility but bowel obstruction seems less likely. Abdominal exam completely benign. Will continue IV fluid hydration and repeat electrolyte panel in a.m.. Patient does have significant leukocytosis but this could be in part due to hemoconcentration. UA was abnormal although he denies any significant urinary symptoms. Although UTI could cause some of the patient's nausea and abdominal discomfort. Will monitor postvoid residuals in place patient on Flomax. Patient can follow-up as outpatient with Urology regarding bladder stones and BPH. Patient has been started on empiric antibiotic therapy with Rocephin. Urine cultures and blood cultures are pending. Will order auto titrating BiPAP/CPAP for obstructive sleep apnea. Patient has been admitted as observation status. Subjective Date/time seen: 12/22/24 15:46 Interval history: Patient currently denies any nausea or vomiting. Evaluated by surgery. Advanced diet as tolerated Review of Systems Review of Systems: 12 systems were reviewed with pertinent positives and negatives per HPI. Except as documented in the HPI, all other systems were reviewed and are negative. Exam Narrative: Weight 72.4 kg BMI 22.9 Const: Other: No acute distress, well-developed well-nourished, appears stated age HENMT: Other: Mucous membranes are tacky, posterior oral pharyngeal erythema to the soft palate and oropharynx, poor dentition Eyes: Other: Pupils are equal and reactive, no scleral icterus no conjunctival pallor, lens implants noted bilaterally Neck: Other: No JVD, large neck circumference Resp: Other: Clear to auscultation bilaterally, no increased work of breathing Cardio: Other: Regular rate, regular rhythm, 2+ bilateral radial pedal pulses, no JVD GI: Other: Hypoactive bowel sounds, nontender, nondistended, soft, no organomegaly Skin: Other: No pallor, non jaundice Neuro: Other: Alert oriented to person, year and place use confused as to the month thought the month was still November, speech is clear and fluent, no facial asymmetry, marked hearing loss, no acute localizing neurologic deficits noted during the course of casual conversation Extrem: Other: No clubbing, cyanosis or edema, moves all extremities equally Psych: Other: Appropriate mood and affect, pleasant and cooperative, judgment and insight intact Objective Data Vital Signs Vital Signs: Vital Signs - 24 hr 12/21/24 16:33 12/21/24 16:36 12/21/24 18:36 Temperature 97.6 F 97.4 F L Pulse Rate 95 87 Respiratory Rate 16 20 20 Blood Pressure 146/68 H 120/77 Pulse Oximetry 95 99 Oxygen Delivery Room Air 12/21/24 19:40 12/21/24 23:15 12/21/24 23:16 Temperature 98.5 F Pulse Rate 80 Respiratory Rate 20 Blood Pressure 145/65 H 135/66 Pulse Oximetry 100 97 98 Oxygen Delivery 12/21/24 23:31 12/21/24 23:32 12/21/24 23:45 Temperature Pulse Rate Respiratory Rate Blood Pressure 124/65 Pulse Oximetry 100 97 98 Oxygen Delivery 12/21/24 23:46 12/22/24 00:00 12/22/24 00:01 Temperature Pulse Rate Respiratory Rate Blood Pressure 142/64 H 129/67 Pulse Oximetry 99 98 98 Oxygen Delivery 12/22/24 00:16 12/22/24 00:44 12/22/24 02:22 Temperature 98.3 F Pulse Rate 80 Respiratory Rate 16 Blood Pressure 132/64 130/61 Pulse Oximetry 98 98 Oxygen Delivery Room Air 12/22/24 06:00 12/22/24 08:00 12/22/24 14:00 Temperature 97.6 F 97.8 F Pulse Rate 70 78 Respiratory Rate 18 18 Blood Pressure 144/65 H 120/66 Pulse Oximetry 99 97 Oxygen Delivery Room Air Intake/Output Intake/Output: Intake & Output 12/19/24 12/20/24 12/21/24 12/22/24 23:59 23:59 23:59 23:59 Intake Total 1050 2110 Output Total 400 Balance 1050 1710 Meds/Results Medications: Active Medications Generic Name Dose Route Start Last Admin Trade Name Freq PRN Reason Stop Dose Admin Hydrocodone Bitart/Acetaminophen 1 tab 12/22/24 04:28 Hydrocodone/Acetaminophen (*Crx) 7.5-325 Mg Tablet PO Q6H PRN Pain 4-10 Alprazolam 1 mg 12/22/24 04:28 Alprazolam (*Crx) 0.5 Mg Tablet PO HS PRN anxiety Brimonidine Tartrate 1 drop 12/22/24 09:00 12/22/24 08:34 Brimonidine Tartrate 0.2% Op Soln 5 Ml Btl EACH EYE 1 drop Q12HR IVORY Administration Dorzolamide/Timolol 1 drop 12/22/24 09:00 12/22/24 08:34 Dorzolamide/Timolol Ophth Ml 10 Ml Bottle EACH EYE 1 drop DAILY IVORY Administration Enoxaparin Sodium 40 mg 12/22/24 09:00 12/22/24 08:32 Enoxaparin 40 Mg/0.4 Ml Syringe SUB-Q 40 mg DAILY IVORY Administration Gabapentin 600 mg 12/22/24 09:00 12/22/24 08:32 Gabapentin 300 Mg Capsule PO 600 mg BID IVORY Administration Ceftriaxone Sodium 1 gm in 50 mls @ 100 mls/hr 12/22/24 21:00 Rocephin 1 Gm/Ns 50 Ml IVPB Q24H IVORY Sodium Chloride 1,000 mls @ 100 mls/hr 12/21/24 22:50 12/21/24 23:21 Normal Saline Iv IV CONT 100 mls/hr .Q10H IVORY Administration Latanoprost 1 drop 12/22/24 21:00 Latanoprost 0.005% Op Soln 2.5 Ml Btl EACH EYE HS IVORY Magnesium Oxide 200 mg 12/22/24 09:00 12/22/24 08:33 Magnesium Oxide 200 Mg Tablet PO 200 mg DAILY IVORY Administration Multivitamins Therapeutic 1 tablet 12/22/24 09:00 12/22/24 08:33 Multivitamins Therapeutic Tab (*Bkc) PO 1 tablet DAILY IVORY Administration Nortriptyline HCl 50 mg 12/22/24 09:00 12/22/24 08:33 Nortriptyline Hcl 25 Mg Capsule PO 50 mg DAILY IVORY Administration Ondansetron HCl 4 mg 12/21/24 22:49 Ondansetron Inj 4 Mg/2 Ml Vial IV PUSH Q4H PRN Nausea Pantoprazole Sodium 40 mg 12/22/24 09:00 12/22/24 08:32 Pantoprazole Sodium Iv 40 Mg Vial IV PUSH 40 mg Q12HR IVORY Administration Phenyleph/Shark Oil/Min Oil/Petrol 1 applic 12/22/24 05:06 Phenyleph/Mineral Oil/Petrolat Ointment 57 Gm RECTAL BID PRN hemorrhoids Tamsulosin HCl 0.4 mg 12/22/24 09:00 12/22/24 08:33 Tamsulosin Hcl 0.4 Mg Capsule PO 0.4 mg QAM IVORY Administration Vitamin D 75 mcg 12/22/24 09:00 12/22/24 08:32 Cholecalciferol (Vitamin D3) 25 Mcg (1,000 Units) Tablet PO 75 mcg DAILY IVORY Administration Radiology Results: ITS Impressions Abdomen/Pelvis CT 12/21/24 20:29 IMPRESSION: Small foci of consolidation in the bilateral lower lobes versus irregular nodules, recommend low-dose noncontrast CT of the chest follow-up in 3 months to evaluate for resolution. Multiple loops of dilated small bowel in the left abdomen, without a specific transition point. This may represent ileus, possibly with enteritis. Early obstruction is not excluded. Urinary bladder distention with mild wall thickening may be secondary to cystitis and/or outlet obstruction from prostatomegaly. Multiple bladder stones. Labs Labs: Laboratory Results - last 24 hr 12/21/24 12/21/24 12/21/24 18:15 18:25 22:20 WBC 17.1 H RBC 5.80 Hgb 14.2 Hct 46.2 MCV 79.7 L MCH 24.5 L MCHC 30.7 L RDW 18.5 H Plt Count 286 MPV 9.5 Immature Gran % (Auto) 0.4 Neut % (Auto) 82.4 H Lymph % (Auto) 9.5 L Glasscock % (Auto) 7.5 Eos % (Auto) 0.0 Baso % (Auto) 0.2 Lymph # (Auto) 1.62 Glasscock # (Auto) 1.3 H Eos # (Auto) 0.0 Baso # (Auto) 0.0 Abs Immat Gran (auto) 0.06 H Absolute Neuts (auto) 14.1 H Absolute Nucleated RBC 0.000 Nucleated RBC % 0.0 Sodium 147 H Potassium 3.7 Chloride 108 H Carbon Dioxide 25 Anion Gap 14 H BUN 30 H Creatinine 1.05 Estim Creat Clear Calc 48 Estimated GFR > 60 Glucose 140 H Lactic Acid 2.1 H Calcium 11.5 H Magnesium 2.0 Total Bilirubin 0.9 AST 51 ALT 21 Alkaline Phosphatase 78 Total Protein 8.2 Albumin 4.8 Lipase 32 Urine Color Yellow Urine Appearance Clear Urine pH 6.0 Ur Specific Shiro 1.015 Urine Protein 1+ H Urine Glucose (UA) Negative Urine Ketones Negative Ur Blood (Man) 1+ H Urine Nitrate Negative Urine Bilirubin Negative Urine Urobilinogen 0.2 Leukocyte Esterase Rfl 2+ H Urine RBC 3-5 H Urine WBC 51-100 H Ur Squamous Epith Cells Occasional Urine Bacteria None seen Urine Casts 0-2 Influenza A (RT-PCR) Negative Influenza B (RT-PCR) Negative RSV (RT-PCR) Negative SARS-CoV-2 RNA (RT-PCR) Negative 12/22/24 12/22/24 05:08 05:14 WBC 13.3 H RBC 4.92 Hgb 12.2 L Hct 39.6 L MCV 80.5 MCH 24.8 L MCHC 30.8 L RDW 17.4 H Plt Count 253 MPV 9.9 Immature Gran % (Auto) 0.5 Neut % (Auto) 78.3 H Lymph % (Auto) 10.2 L Glasscock % (Auto) 10.4 H Eos % (Auto) 0.3 Baso % (Auto) 0.3 Lymph # (Auto) 1.35 Glasscock # (Auto) 1.4 H Eos # (Auto) 0.0 Baso # (Auto) 0.0 Abs Immat Gran (auto) 0.07 H Absolute Neuts (auto) 10.4 H Absolute Nucleated RBC 0.000 Nucleated RBC % 0.0 Sodium 144 Potassium 3.3 L Chloride 111 H Carbon Dioxide 24 Anion Gap 9 BUN 25 H Creatinine 0.99 Estim Creat Clear Calc 50 Estimated GFR > 60 Glucose 115 H Lactic Acid 1.3 Calcium 9.4 Magnesium Total Bilirubin 0.5 AST 48 ALT 17 Alkaline Phosphatase 64 Total Protein 6.6 Albumin 3.9 Lipase Urine Color Urine Appearance Urine pH Ur Specific Shiro Urine Protein Urine Glucose (UA) Urine Ketones Ur Blood (Man) Urine Nitrate Urine Bilirubin Urine Urobilinogen Leukocyte Esterase Rfl Urine RBC Urine WBC Ur Squamous Epith Cells Urine Bacteria Urine Casts Influenza A (RT-PCR) Influenza B (RT-PCR) RSV (RT-PCR) SARS-CoV-2 RNA (RT-PCR) Quality VTE Prophylaxis VTE prophylaxis: pharmacologic ordered (Lovenox 40 mg subQ daily.) Hospitalist MIPS Advance Care Plan I have confirmed that the patient's Advanced Care Plan is present, code status is documented, or surrogate decision maker is listed in patient medical record.: Yes Medication Reconciliation I have utilized all available resources to obtain, update and review the patients current medications (includes all prescriptions, OTC, herbals, cannabis, and nutritional supplements).: Yes
[2024-12-22] MEDS: SODIUM CHLORIDE 0.9% IV 1,000 ML 100 ML IV CONT (17:31)
--- NOTE | 2024-12-22 20:27 | P.PNCROSS_ITS ---
Event Note Event Note Event Note: Labs reviewed patient's potassium was mildly low at 3.3. Will give 40 mEq po tassium chloride p.o. x1 and repeat level in a.m.. Will add magnesium level to a.m. labs.
[2024-12-22] MEDS: LATANOPROST 0.005% OP SOLN 2.5 ML BTL 1 DROP EACH EYE (20:31)
[2024-12-22] MEDS: POTASSIUM CHLORIDE 20 MEQ PACKET (FOR LIQUID) 40 MEQ PO (20:40)
[2024-12-22] MEDS: ALPRAZolam (*CRX) 0.5 MG TABLET 1 MG PO (22:07)
[2024-12-23 04:42] VITALS: BP 139/64; PULSE 62; RESP 16; TEMP 36.6; O2SAT 98
[2024-12-23] MEDS: SODIUM CHLORIDE 0.9% IV 1,000 ML 100 ML IV CONT (04:57)
[2024-12-23 05:56] LABS: Hematocrit 40.9 % (42.0-52.0); Mean Corpuscular HGB Conc 29.3 g/dl (32-36); Mean Corpuscular Hemoglobin 24.5 pg (26-34); Mean Corpuscular Volume 83.5 fl (80-100); Platelet Count Result 212 k/mm3 (150-375); Red Cell Distribution Width 17.6 % (11.5-14.5); White Blood Count 8.9 K/mm3 (4.5-10.0)
[2024-12-23 06:18] LABS: Alanine Aminotransferase 39 U/L (6-50); Albumin Level 3.5 g/dL (3.5-5.1); Alkaline Phosphatase 56 U/L (38-126); Anion Gap 10 mmol/L (4-12); Aspartate Amino Transferase 69 U/L (17-59); Bilirubin,Total 0.5 mg/dL (0.2-1.3); Blood Urea Nitrogen 18 mg/dL (9-20); Calcium 8.9 mg/dL (8.4-10.2); Carbon Dioxide 19 mmol/L (22-30); Chloride 113 mmol/L (98-107); Estimated CRCL calculation 55 ml/min; Estimated Glomerular Filt Rate > 60; Glucose 90 mg/dL (65-110); Potassium 3.3 mmol/L (3.4-5.0); Sodium 142 mmol/L (137-145); Total Protein 6.1 g/dL (6.3-8.2)
[2024-12-23] MEDS: GABAPENTIN 300 MG CAPSULE 600 MG PO (09:26)
[2024-12-23] MEDS: MAGNESIUM OXIDE 200 MG TABLET PO (09:26)
[2024-12-23] MEDS: CHOLECALCIFEROL (VITAMIN D3) 25 MCG (1,000 UNITS) TABLET 75 MCG PO (09:26)
[2024-12-23] MEDS: NORTRIPTYLINE HCL 25 MG CAPSULE 50 MG PO (09:26)
[2024-12-23] MEDS: ENOXAPARIN 40 MG/0.4 ML SYRINGE SUB-Q (09:26)
[2024-12-23] MEDS: BRIMONIDINE TARTRATE 0.2% OP SOLN 5 ML BTL 1 DROP EACH EYE (09:27)
[2024-12-23] MEDS: PANTOPRAZOLE SODIUM IV 40 MG VIAL IV PUSH (09:27)
[2024-12-23] MEDS: DORZOLAMIDE/TIMOLOL OPHTH SOL 10 ML BOTTLE 1 DROP EACH EYE (09:27)
[2024-12-23] MEDS: TAMSULOSIN HCL 0.4 MG CAPSULE PO (09:27)
[2024-12-23] MEDS: MULTIVITAMINS THERAPEUTIC TAB (*BKC) 1 TABLET PO (09:27)
--- NOTE | 2024-12-23 10:04 | P.DS_ITS ---
DS: Admitting Diagnosis Discharge Date 12/23/2024 Admitting Diagnosis urinary retention DS: Discharge Diagnosis Discharge Diagnosis (1) Hypernatremia: Code(s): E87.0 - Hyperosmolality and hypernatremia Status: Acute (2) Hypercalcemia: Code(s): E83.52 - Hypercalcemia Status: Acute (3) Enteritis: Code(s): K52.9 - Noninfective gastroenteritis and colitis, unspecified Status: Acute (4) Bladder stones: Code(s): N21.0 - Calculus in bladder Status: Acute (5) Abnormal urinalysis: Code(s): R82.90 - Unspecified abnormal findings in urine Status: Acute (6) Acute dehydration: Code(s): E86.0 - Dehydration Status: Acute (7) Incomplete emptying of bladder due to benign prostatic hyperplasia: Code(s): N40.1 - Benign prostatic hyperplasia with lower urinary tract symptoms; R33.9 - Retention of urine, unspecified Status: Acute (8) Obstructive sleep apnea on CPAP: Code(s): G47.33 - Obstructive sleep apnea (adult) (pediatric) Status: Acute DS: Summary Hospital Course Reason for hospitalization: Nausea, vomiting and diarrhea Hospital Course: 84-year-old male with a history of glaucoma, obstructive sleep apnea, anxiety, GERD and chronic pain who presented to the ER via private vehicle due to nausea vomiting and diarrhea for 3 days. The patient actually reports that he has been more nauseated than anything. He reports that his stomach did not feel well any felt like he just needed to do something so he has been repetitively sticking his finger down his throat to vomit. He has been having some loose stools but no overt diarrhea. He is only having a little bit of watery stool output when he strains to urinate. He states that he feels like he is emptying his bladder all the way but on CT scan his bladder was quite distended. Nursing staff check postvoid residuals and despite patient having urinated over 300 mL he still had about 250 in urinary retention. Patient denies any known history of BPH. He denies any recent travel, recent ill contacts or antibiotic exposure. He denies any actual abdominal pain on palpation. He denies any dysuria or changes in urinary frequency. Patient has hyperosmolar hypernatremia due to dehydration secondary to enteritis. The patient has been forcing emesis which is cause some oral pharyngeal irritation. Patient is having significant nausea but the amount of diarrhea it does not seem to be significant. General surgery consulted regarding enteritis, possible ileus rule out. Showed multiple loops of dilated small bowel left abdomen without a transition point, may represent ileus but likely enteritis., likely gastroenteritis, and recommend continuing supportive medical care and advancing diet as tolerated. Blood and urine Cultures negative for growth. EKG showed NSR. Blood did not show any leukocytosis. H&H not grossly decreased. Vital signs unremarkable. Physical exam unremarkable. Patient was given 40 tablets of potassium for potassium of 3.3 overnight. Patient otherwise clear discharge per General surgery and is otherwise medically stable for discharge home at this time. Symptoms likely attributed to gastroenteritis and can be managed from here on out at home. Patient amenable to this plan, plan for discharge home. Status at Discharge Functional status at discharge: independent ambulation Overall status at discharge: patient is back to baseline Time Spent with Patient Time attestation: Total time spent providing and/or coordinating discharge services: 35 Exam Narrative: Weight 72.4 kg BMI 22.9 Const: Other: No acute distress, well-developed well-nourished, appears stated age HENMT: Other: Mucous membranes are tacky, posterior oral pharyngeal erythema to the soft palate and oropharynx, poor dentition Eyes: Other: Pupils are equal and reactive, no scleral icterus no conjunctival pallor, lens implants noted bilaterally Neck: Other: No JVD, large neck circumference Resp: Other: Clear to auscultation bilaterally, no increased work of breathing Cardio: Other: Regular rate, regular rhythm, 2+ bilateral radial pedal pulses, no JVD GI: Other: Normoactive bowel sounds, nontender, nondistended, soft, no organomegaly Skin: Other: No pallor, non jaundice Neuro: Other: Alert oriented to person, year and place use confused as to the month thought the month was still November, speech is clear and fluent, no facial asymmetry, marked hearing loss, no acute localizing neurologic deficits noted during the course of casual conversation Extrem: Other: No clubbing, cyanosis or edema, moves all extremities equally Psych: Other: Appropriate mood and affect, pleasant and cooperative, judgment and insight intact DS: Data Data Completed and Pending Labs on day of discharge: Labs from last 24 hours 12/23/24 05:21 WBC 8.9 RBC 4.90 Hgb 12.0 L Hct 40.9 L MCV 83.5 MCH 24.5 L MCHC 29.3 L RDW 17.6 H Plt Count 212 MPV 10.0 Sodium 142 Potassium 3.3 L Chloride 113 H Carbon Dioxide 19 L Anion Gap 10 BUN 18 Creatinine 0.90 Estim Creat Clear Calc 55 Estimated GFR > 60 Glucose 90 Calcium 8.9 Magnesium 2.0 Total Bilirubin 0.5 AST 69 H ALT 39 Alkaline Phosphatase 56 Total Protein 6.1 L Albumin 3.5 Preliminary micro results at discharge 12/21/24 22:21 Blood Culture - Preliminary Blood 12/21/24 22:22 Blood Culture - Preliminary Blood Discharge Plan Discharge Attending physician on discharge: Shahram Alvarez Consulting providers: Ling Antonio; Alfie Gonzales Discharging Clinician: Alfie Gonzales Anticipated Discharge Date/Time: 12/23/24 09:52 Patient Disposition: Home Activity: as tolerated Diet: as tolerated Discharge Instructions: Discharge disposition: Stable Take medications as prescribed Monitor blood pressures Take caution while standing, rising, or moving Change positions slowly taking a break between each position change If you standing feel dizzy sit back down and take a break Encouraged to continue with yearly vaccinations Return to the emergency department if he developed sudden shortness of breath, chest pain, nausea, vomiting, upset stomach or intractable diarrhea Return to the emergency department if you develop fever greater than 101.5 Follow-up with the primary care physician within 1-2 weeks You should also follow up with Dr. Melo of Urology regarding a finding on your CT Scan which suggests the presence of multiple urinary bladder stones. Thank you for choosing [facility] for your healthcare needs Patient Instructions: Antibiotic Form, Dehydration (GEN), Acute Nausea and Vomiting (GEN) Patient Language: French Stand Alone Forms: General Discharge Information Follow-up/Referrals: Tian Melo MD [Physician] - Miguel Irwin DO [Primary Care Provider] - Discharge Medications: No Action magnesium 250 mg tablet 250 mg PO DAILY multivitamin [Multiple Vitamins] Tablet 1 tablet PO DAILY saw palmetto 500 mg capsule 500 mg PO BID Rx Instructions: give with food (meal/snack) cholecalciferol (vitamin D3) 25 mcg (1,000 unit) capsule 3,000 unit PO DAILY nortriptyline 25 mg capsule 50 mg PO DAILY travoprost [Travatan Z] 0.004 % drops 1 drop EACH EYE QPM Galzin 50 mg (zinc) capsule 50 mg PO DAILY Rx Instructions: swallow whole; do not chew/break/dissolve/open alprazolam 1 mg tablet 1 mg PO HS PRN (Reason: anxiety) Qty: 30 0RF gabapentin 600 mg tablet 600 mg PO BID hydrocodone-acetaminophen 7.5-325 mg tablet 1 tablet PO Q6-8H dorzolamide-timolol 22.3-6.8 mg/mL drops 1 drp EACH EYE DAILY brimonidine 0.2 % drops 1 drp EACH EYE BID pantoprazole 20 mg tablet,delayed release (DR/EC) 20 mg PO DAILY nabumetone 750 mg tablet 750 mg PO BID Qty: 60 1RF Rx Instructions: with food hydrocortisone [Proctozone-HC] 2.5 % cream with perineal applicator 1 applic RECTAL BID PRN (Reason: hemorrhoids) Qty: 30 1RF Date of admission: 12/21/24 22:49 Primary Care Provider: Miguel Irwin Admitting Provider: Clary Joseph Attending physician on admission: Clary Joseph Condition: Stable Quality VTE Prophylaxis VTE prophylaxis: pharmacologic ordered (Lovenox 40 mg subQ daily.)
--- NOTE | 2024-12-23 12:31 | PM.PNGS ---
Progress Note: A&P Assessment and Plan (1) Enteritis: Code(s): K52.9 - Noninfective gastroenteritis and colitis, unspecified Status: Acute Assessment and Plan: cont supportive mgmt, exam benign, ok to dc from surgical standpoint Subjective Subjective Date/Time Seen: 12/23/24 12:31 Interval history: feels much better, no pain, lorraine diet Review of Systems Review of Systems: All systems reviewed & are unremarkable except as noted in HPI and below Exam Const: General: cooperative, comfortable and no acute distress Resp: Auscultation: clear to auscultation bilaterally Cardio: Rate: regular rate Rhythm: regular rhythm GI: Inspection: normal to inspection and non-distended GI Palp: No abdominal tenderness and Yes Soft to palpation Objective Data Vital Signs Vital Signs: Vital Signs - 24 hr 12/22/24 14:00 12/22/24 19:52 12/22/24 20:45 Temperature 36.6 C 37.1 C Pulse Rate 78 70 Respiratory Rate 18 18 Blood Pressure 120/66 122/54 L Pulse Oximetry 97 99 Oxygen Delivery Room Air 12/23/24 04:42 12/23/24 08:00 Temperature 36.6 C Pulse Rate 62 Respiratory Rate 16 Blood Pressure 139/64 Pulse Oximetry 98 Oxygen Delivery Room Air Intake/Output Intake/Output: Intake & Output 12/20/24 12/21/24 12/22/24 12/23/24 23:59 23:59 23:59 23:59 Intake Total 1050 4690 1780 Output Total 400 Balance 1050 4290 1780 Meds/Results Medications: Active Medications Generic Name Dose Route Start Last Admin Trade Name Holdenq PRN Reason Stop Dose Admin Hydrocodone Bitart/Acetaminophen 1 tab 12/22/24 04:28 Hydrocodone/Acetaminophen (*Crx) 7.5-325 Mg Tablet PO Q6H PRN Pain 4-10 Alprazolam 1 mg 12/22/24 04:28 12/22/24 22:07 Alprazolam (*Crx) 0.5 Mg Tablet PO 1 mg HS PRN Administration anxiety Brimonidine Tartrate 1 drop 12/22/24 09:00 12/23/24 09:27 Brimonidine Tartrate 0.2% Op Soln 5 Ml Btl EACH EYE 1 drop Q12HR IVORY Administration Dorzolamide/Timolol 1 drop 12/22/24 09:00 12/23/24 09:27 Dorzolamide/Timolol Ophth Ml 10 Ml Bottle EACH EYE 1 drop DAILY IVORY Administration Enoxaparin Sodium 40 mg 12/22/24 09:00 12/23/24 09:26 Enoxaparin 40 Mg/0.4 Ml Syringe SUB-Q 40 mg DAILY IVORY Administration Gabapentin 600 mg 12/22/24 09:00 12/23/24 09:26 Gabapentin 300 Mg Capsule PO 600 mg BID IVORY Administration Ceftriaxone Sodium 1 gm in 50 mls @ 100 mls/hr 12/22/24 21:00 12/22/24 20:30 Rocephin 1 Gm/Ns 50 Ml IVPB 100 mls/hr Q24H IVORY Administration Sodium Chloride 1,000 mls @ 100 mls/hr 12/21/24 22:50 12/23/24 04:57 Normal Saline Iv IV CONT 100 mls/hr .Q10H IVORY Administration Latanoprost 1 drop 12/22/24 21:00 12/22/24 20:31 Latanoprost 0.005% Op Soln 2.5 Ml Btl EACH EYE 1 drop HS IVORY Administration Magnesium Oxide 200 mg 12/22/24 09:00 12/23/24 09:26 Magnesium Oxide 200 Mg Tablet PO 200 mg DAILY IVORY Administration Multivitamins Therapeutic 1 tablet 12/22/24 09:00 12/23/24 09:27 Multivitamins Therapeutic Tab (*Bkc) PO 1 tablet DAILY IVORY Administration Nortriptyline HCl 50 mg 12/22/24 09:00 12/23/24 09:26 Nortriptyline Hcl 25 Mg Capsule PO 50 mg DAILY IVORY Administration Ondansetron HCl 4 mg 12/21/24 22:49 Ondansetron Inj 4 Mg/2 Ml Vial IV PUSH Q4H PRN Nausea Pantoprazole Sodium 40 mg 12/22/24 09:00 12/23/24 09:27 Pantoprazole Sodium Iv 40 Mg Vial IV PUSH 40 mg Q12HR IVORY Administration Phenyleph/Shark Oil/Min Oil/Petrol 1 applic 12/22/24 05:06 Phenyleph/Mineral Oil/Petrolat Ointment 57 Gm RECTAL BID PRN hemorrhoids Tamsulosin HCl 0.4 mg 12/22/24 09:00 12/23/24 09:27 Tamsulosin Hcl 0.4 Mg Capsule PO 0.4 mg QAM IVORY Administration Vitamin D 75 mcg 12/22/24 09:00 12/23/24 09:26 Cholecalciferol (Vitamin D3) 25 Mcg (1,000 Units) Tablet PO 75 mcg DAILY IVORY Administration Radiology Results: ITS Impressions Abdomen/Pelvis CT 12/21/24 20:29 IMPRESSION: Small foci of consolidation in the bilateral lower lobes versus irregular nodules, recommend low-dose noncontrast CT of the chest follow-up in 3 months to evaluate for resolution. Multiple loops of dilated small bowel in the left abdomen, without a specific transition point. This may represent ileus, possibly with enteritis. Early obstruction is not excluded. Urinary bladder distention with mild wall thickening may be secondary to cystitis and/or outlet obstruction from prostatomegaly. Multiple bladder stones. Labs Labs: Laboratory Results - last 24 hr 12/23/24 05:21 WBC 8.9 RBC 4.90 Hgb 12.0 L Hct 40.9 L MCV 83.5 MCH 24.5 L MCHC 29.3 L RDW 17.6 H Plt Count 212 MPV 10.0 Sodium 142 Potassium 3.3 L Chloride 113 H Carbon Dioxide 19 L Anion Gap 10 BUN 18 Creatinine 0.90 Estim Creat Clear Calc 55 Estimated GFR > 60 Glucose 90 Calcium 8.9 Magnesium 2.0 Total Bilirubin 0.5 AST 69 H ALT 39 Alkaline Phosphatase 56 Total Protein 6.1 L Albumin 3.5
== END 2024-12-23 14:07 | disposition home or self-care (01) ==
LOC: ANHED 22:49 → ANH3MED 12-23 06:50
PROVIDERS: General Practice; Registered Nurse; Admitting Provider Internal Medicine; Emergency Provider Physician Assistant; PCP Internal Medicine; Visit Provider Family Medicine
DX: E86.0 Dehydration (principal); E83.52 Hypercalcemia; E87.0 Hyperosmolality and hypernatremia; E87.6 Hypokalemia; K52.9 Noninfective gastroenteritis and colitis, unspecified; R82.90 Unspecified abnormal findings in urine; N21.0 Calculus in bladder; N40.1 Benign prostatic hyperplasia with lower urinary tract symptoms; R33.8 Other retention of urine; K21.9 Gastro-esophageal reflux disease without esophagitis; E78.5 Hyperlipidemia, unspecified; H91.93 Unspecified hearing loss, bilateral; G47.33 Obstructive sleep apnea (adult) (pediatric); G62.9 Polyneuropathy, unspecified; G89.4 Chronic pain syndrome; H40.9 Unspecified glaucoma; F41.9 Anxiety disorder, unspecified; E55.9 Vitamin D deficiency, unspecified; Z20.822 Contact with and (suspected) exposure to COVID-19; Z79.899 Other long term (current) drug therapy; Z87.891 Personal history of nicotine dependence; Z96.1 Presence of intraocular lens; Z98.42 Cataract extraction status, left eye; Z98.41 Cataract extraction status, right eye; Z98.890 Other specified postprocedural states
CPT/HCPCS: 36415; 74177; 80053; 81001; 83605; 83690; 83735; 85025; 85027; 87040; 87086; 87637; 93005; 96361; 96365; 96375; 99285; A9270; G0378; J0696; J1650; J2405; J2470; J7030; Q9967

== ENCOUNTER 2025-04-28 15:46 | Emergency (ER) | payer MEDICARE, SELFPAY ==
[2025-04-28] VITALS (39 sets, daily range): BP systolic 133–169; BP diastolic 59–103; PULSE 97–110; RESP 10–27; TEMP 36.4; O2SAT 95–100
--- NOTE | ~2025-04-28 | CT_ITS ---
Darryn Arnett EXAMINATION: CT abdomen pelvis w con COMPARISON: None HISTORY: Abdominal pain TECHNIQUE: Axial images were obtained through the abdomen, pelvis post administration of IV contrast. Oral contrast was also administered. Coronal reconstruction images were obtained from the axial views. CT scan performed using dose optimization techniques including the following automated exposure control; adjustment of mA and/or kV; use of iterative reconstruction technique. Automatic exposure control was used to reduce radiation dose. Permanent radiation dose record is archived to PACS. FINDINGS: CT abdomen: LUNG BASES: The lung bases demonstrate chronic changes with ill-defined areas of abnormal density in the right lower lobe the largest measuring 8 x 10 mm incompletely evaluated, dedicated CT of the chest is suggested. 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 Mild hepatic steatosis. Portal vein patent. SPLEEN: Unremarkable. KIDNEYS: Right Kidney: Unremarkable. No calculi. No hydronephrosis. Left Kidney: Unremarkable. No calculi. No hydronephrosis ADRENAL GLANDS: Unremarkable. PANCREAS: Moderate pancreatic atrophy. GALLBLADDER/BILIARY: Mild distention gallbladder. STOMACH AND ESOPHAGUS: The stomach is decompressed. BOWEL/MESENTERY: Moderate fecal content. There is hyperemia with thickening of the ascending colon although there is no significant pericolonic stranding, perforation or abscess. The appendix appears normal. No thickening or dilated loops of small bowel. ADENOPATHY/RETROPERITONEUM: No lymphadenopathy. AORTA/VASCULATURE: Normal caliber aorta. FREE FLUID OR FREE AIR: Trace free fluid.. CT pelvis: SOLID ORGANS/REPRODUCTIVE: Prostate is enlarged, correlate with PSA. BLADDER: There is hyperemia with thickening of the bladder wall with a catheter within the bladder. OSSEOUS STRUCTURES: No sclerotic or lytic lesions. Postsurgical changes noted in the lumbar spine. OVERLYING SOFT TISSUES: Small bilateral fat-containing inguinal hernia. IMPRESSION: 1. Mild colitis of the ascending colon possibly infectious. 2. Mild cystitis. 3. Incidental findings above Reviewed, dictated and finalized at location P.
--- NOTE | 2025-04-28 17:14 | ED.GENADULT ---
HPI - General Adult General Chief complaint: Urogenital-Male <Phill Simpson MD - Last Filed: 04/28/25 19:11> Stated complaint: DIFFICULTY URINATING AND CONSTIPATION <Phill Simpson MD - Last Filed: 04/28/25 19:11> Time Seen by Provider: 04/28/25 16:36 <Phill Simpson MD - Last Filed: 04/28/25 19:11> History of Present Illness HPI narrative: Patient is a 85-year-old gentleman presents emergency department with chief complaint of constipation and urinary retention. The patient reports he has not been able to urinate since this morning reports he has had a large amount of stool in his rectum that is been soft and squishy the patient attempted a manual disimpaction at home <Phill Simpson MD - Last Filed: 04/28/25 19:11> Related Data Home medications: Home Medications ?Medication ?Instructions ?Recorded ?Confirmed ?Last Taken ?Type dorzolamide 22.3 mg-timolol 6.8 1 drp EACH EYE DAILY 06/19/19 12/22/24 12/17/24 09:00 History mg/mL eye drops gabapentin 600 mg tablet 600 mg PO BID 06/19/19 12/22/24 12/17/24 09:00 History hydrocodone 7.5 mg-acetaminophen 1 tablet PO Q6-8H 06/19/19 12/22/24 12/17/24 09:00 History 325 mg tablet cholecalciferol (vitamin D3) 25 3,000 unit PO DAILY 09/03/19 12/22/24 12/17/24 09:00 History mcg (1,000 unit) capsule magnesium 250 mg tablet 250 mg PO DAILY 09/03/19 12/22/24 12/17/24 09:00 History multivitamin (Multiple Vitamins 1 tablet PO DAILY 09/03/19 12/22/24 12/17/24 09:00 History tablet) saw palmetto 500 mg capsule 500 mg PO BID 09/03/19 12/22/24 12/17/24 09:00 History nortriptyline 25 mg capsule 50 mg PO DAILY 09/04/19 12/22/24 12/17/24 09:00 History travoprost 0.004 % eye drops 1 drop ophthalmic (eye) QPM 03/07/20 12/22/24 12/17/24 21:00 History (Travatan Z) zinc acetate 50 mg (zinc) capsule 50 mg PO DAILY 03/07/20 12/22/24 12/17/24 09:00 History (Galzin) brimonidine 0.2 % eye drops 1 drp EACH EYE BID 12/22/24 12/22/24 12/17/24 21:00 History pantoprazole 20 mg tablet,delayed 20 mg PO DAILY 12/22/24 12/22/24 12/17/24 09:00 History release <Phill Simpson MD - Last Filed: 04/28/25 19:11> Allergies/adverse reactions: Allergies Allergy/AdvReac Type Severity Reaction Status Date / Time No Known Allergies Allergy Verified 04/28/25 15:47 <Phill Simpson MD - Last Filed: 04/28/25 19:11> Review of Systems Review of Systems: A 10 system review of systems was completed on the patient and is negative except for what is stated in the HPI. Nursing and ancillary documentation was reviewed. <Phill Simpson MD - Last Filed: 04/28/25 19:11> [facility] Past Medical History Medical History: Medical History Bilateral hearing loss Low testosterone in male Low vitamin D level Chronic pain syndrome SHANNA (obstructive sleep apnea) Hyperlipidemia Neuropathy <Phill Simpson MD - Last Filed: 04/28/25 19:11> Surgical History Surgical History: Surgical History Status post cataract extraction of both eyes with insertion of intraocular lens H/O inguinal hernia repair laparoscopic bilateral inguinal hernia repair with mesh, da Benny assisted 08/25/22 History of back surgery <Phill Simpson MD - Last Filed: 04/28/25 19:11> Family History Family History: Family History Father Dementia Mother , 100 No problems noted. Sibling , cancer No problems noted. Sibling No problems noted. <Phill Simpson MD - Last Filed: 04/28/25 19:11> Social History Social History: Social History Social History: Patient is his in January of 2024. They had been for over 40 years. They raised 1 daughter and 1 son. He did this smoke for a few years when he was younger. He denies any alcohol use. 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 Code status: Full code [facility] power of employee benefits attorney: Doris Arnett (daughter) Smoking packs per day: 1 Smoking cigarettes per day: 20.0 Years smoked: 12 Smoking pack-years: 12.00 Smoking status: Former smoker Second hand tobacco smoke exposure: No Alcohol intake: never Substance use: never Substance use type: does not use Do You Feel Safe in your Home?: Yes Lack of Transportation: No Lack of Food: Never True Current Housing: I Have Housing Concerned About Future Housing: No Difficulty Paying Gas/Electric Bills: No Difficulty Paying for Meds: No Currently Unemployed: No Education: Master's Degree or Higher Difficulty w/ Childcare or Family Care: No Living arrangements: alone Occupation/Education: retired 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 HEAD: Normocephalic, atraumatic. EYES: PERRLA and EOMI. ENT: Nares clear, no rhinorrhea or epistaxis. Mucous membranes moist. NECK: Supple. CHEST: Clear to auscultation. No respiratory distress. HEART: Regular rate and rhythm. No murmur heard. Normal peripheral pulses. ABDOMEN: Soft, nontender, nondistended, normal active bowel sounds. EXTREMITIES: Normal range of motion. No edema. : 2 large external hemorrhoids present rectal exam showed a large amount of stool in the rectal vault patient was manually disimpacted SKIN: Warm, dry, no rash. NEURO: No focal deficits. Alert and oriented x3. PSYCH: Normal mood and affect. <Phill Simpson MD - Last Filed: 04/28/25 19:11> Course Course Emergency Course: 19:00 -patient signed out to me Dr. Hernandez by Dr. Simpson at shift change. Patient presented with obstipation and urinary retention, attempted manual disimpaction at home and was managed suspected here, was found to have urinary retention and a Urrutia catheter was placed patient feeling much better after Urrutia catheter with a significant amount of urinary output. Patient has been ordered enema and CT abdomen pelvis which are pending at this time. CT abdomen pelvis radiology impression: 1. Mild colitis of the ascending colon possibly infectious. 2. Mild cystitis. 3. Incidental findings above. CBC reveals a white blood cell count of 14.7. Comprehensive metabolic panel reveals a BUN of 30, bicarb 21, glucose 115. Lactic axis acid is 1.2. Lipase 65. Urinalysis reveals 1+ blood, 11-20 RBCs, no bacteria. After the enema patient had a large brown stool output, patient monitor reassessments continues to feel well, denies any current complaints. Patient's heart rate and fluids has come down to the 90s. Patient was reassessed at the bedside. No changes in physical exam. Patient is in no acute distress. The patient has remained stable throughout the entire ED visit. Counseled patient regarding diagnostic results and potential diagnosis. Anticipatory guidance provided. Patient instructed to follow up with PCP in 2 days and urology in 1 week. Patient counseled on: false reassurance from an emergency department evaluation; no current evidence of a medical emergency; return immediately for any new, recurrent, worsening, concerning, or refractory symptoms. Patient prescribed fiber supplements, and miralax. Prescription sent to preferred pharmacy. Medications discussed with patient. Additional verbal and printed discharge instructions were given and discussed with the patient. Patient verbally acknowledges understanding of condition and discharge instructions. All questions were answered to the patient's satisfaction. Patient is in agreement with the plan of care. The patient is stable for discharge and was discharged without incident. <Bairon Hernandez, - Last Filed: 04/29/25 00:14> Vital Signs Vital signs: Vital Signs Temperature 97.6 F 04/28/25 15:51 Pulse Rate 102 H 04/28/25 15:51 Respiratory Rate 20 04/28/25 15:51 Blood Pressure 161/96 H 10/12/25 15:51 Pulse Oximetry 98 04/28/25 15:51 Oxygen Delivery Room Air 04/28/25 15:51 Temperature 97.6 F 04/28/25 15:51 Pulse Rate 103 H 04/28/25 17:38 Respiratory Rate 17 04/28/25 17:38 Blood Pressure 144/66 H 04/28/25 17:38 Pulse Oximetry 97 04/28/25 17:38 Oxygen Delivery Room Air 04/28/25 15:51 <Phill Simpson MD - Last Filed: 04/28/25 19:11> Vital Signs Temperature 97.6 F 04/28/25 15:51 Pulse Rate 102 H 04/28/25 15:51 Respiratory Rate 20 04/28/25 15:51 Blood Pressure 161/96 H 04/28/25 15:51 Pulse Oximetry 98 04/28/25 15:51 Oxygen Delivery Room Air 04/28/25 15:51 Temperature 97.6 F 04/28/25 15:51 Pulse Rate 103 H 04/28/25 17:38 Respiratory Rate 17 04/28/25 17:38 Blood Pressure 144/66 H 04/28/25 17:38 Pulse Oximetry 97 04/28/25 17:38 Oxygen Delivery Room Air 04/28/25 15:51 <Bairon Hernandez DO - Last Filed: 04/29/25 00:14> Medical Decision Making Vital Signs Vital Signs: Vital Signs Temperature 97.6 F 04/28/25 15:51 Pulse Rate 102 H 04/28/25 15:51 Respiratory Rate 20 04/28/25 15:51 Blood Pressure 161/96 H 04/28/25 15:51 Pulse Oximetry 98 04/28/25 15:51 Oxygen Delivery Room Air 04/28/25 15:51 Temperature 97.6 F 04/28/25 15:51 Pulse Rate 103 H 04/28/25 17:38 Respiratory Rate 17 04/28/25 17:38 Blood Pressure 144/66 H 04/28/25 17:38 Pulse Oximetry 97 04/28/25 17:38 Oxygen Delivery Room Air 04/28/25 15:51 <Phill Simpson MD - Last Filed: 04/28/25 19:11> Vital Signs Temperature 97.6 F 04/28/25 15:51 Pulse Rate 102 H 04/28/25 15:51 Respiratory Rate 20 04/28/25 15:51 Blood Pressure 161/96 H 04/28/25 15:51 Pulse Oximetry 98 04/28/25 15:51 Oxygen Delivery Room Air 04/28/25 15:51 Temperature 97.6 F 04/28/25 15:51 Pulse Rate 103 H 04/28/25 17:38 Respiratory Rate 17 04/28/25 17:38 Blood Pressure 144/66 H 04/28/25 17:38 Pulse Oximetry 97 04/28/25 17:38 Oxygen Delivery Room Air 04/28/25 15:51 <Bairon Hernandez DO - Last Filed: 04/29/25 00:14> Lab Data Result diagrams: 04/28/25 17:59 04/28/25 17:59 <Phill Simpson MD - Last Filed: 04/28/25 19:11> Labs: Lab Results 04/28/25 04/28/25 Range/Units 17:49 17:59 WBC 14.7 H (4.5-10.0) K/mm3 RBC 5.49 (4.6-6.20) M/mm3 Hgb 14.4 (14.0-18.0) g/dL Hct 44.6 (42.0-52.0) % MCV 81.2 (80-100) fl MCH 26.2 (26-34) pg MCHC 32.3 (32-36) g/dl RDW 17.6 H (11.5-14.5) % Plt Count 216 (150-375) k/mm3 MPV 10.0 (7.4-10.4) fl Immature Gran % (Auto) 0.4 (0-0.5) % Neut % (Auto) 79.5 H (45.5-73.1) % Lymph % (Auto) 9.1 L (18.3-44.2) % [place] % (Auto) 9.2 H (2.6-8.5) % Eos % (Auto) 1.3 (0-4.4) % Baso % (Auto) 0.5 (0.2-1.2) % Lymph # (Auto) 1.34 (0.9-3.2) K/mm3 [place] # (Auto) 1.4 H (0.1-0.6) K/mm3 Eos # (Auto) 0.2 (0-0.3) K/mm3 Baso # (Auto) 0.1 (0.0-0.1) K/mm3 Abs Immat Gran (auto) 0.06 H (0.00-0.031) K/mm3 Absolute Neuts (auto) 11.7 H (1.3-6.7) K/mm3 Absolute Nucleated RBC 0.000 (0.0-0.012) K/mm3 Nucleated RBC % 0.0 (0.0-0.2) % Sodium 137 (137-145) mmol/L Potassium 3.8 (3.4-5.0) mmol/L Chloride 107 (98-107) mmol/L Carbon Dioxide 21 L (22-30) mmol/L Anion Gap 9 (4-12) mmol/L BUN 30 H D (9-20) mg/dL Creatinine 0.85 (0.7-1.3) mg/dL Estim Creat Clear Calc 57 ml/min Estimated GFR > 60 (59 - ) Glucose 115 H (65-110) mg/dL Lactic Acid 1.2 (0.7-2.0) mmol/L Calcium 9.7 (8.4-10.2) mg/dL Total Bilirubin 0.4 (0.2-1.3) mg/dL AST 31 (17-59) U/L ALT 15 (6-50) U/L Alkaline Phosphatase 89 (38-126) U/L Total Protein 7.4 (6.3-8.2) g/dL Albumin 4.3 (3.5-5.1) g/dL Lipase 65 (23-300) U/L Urine Color Yellow (Yellow) Urine Appearance Clear (Clear) Urine pH 5.5 (5.0-9.0) Ur Specific [place] 1.015 (1.001-1.035) Urine Protein Negative (Negative) mg/dL Urine Glucose (UA) Negative (Negative) mg/dL Urine Ketones Negative (Negative) mg/dL Ur Blood (Man) 1+ H (Negative) Urine Nitrate Negative (Negative) Urine Bilirubin Negative (Negative) Urine Urobilinogen 0.2 (<2.0) mg/dL Leukocyte Esterase Rfl Negative (Negative) SARATH/UL Urine RBC 11-20 H (0-2) /hpf Urine WBC 0-5 (0-3) /hpf Ur Squamous Epith Cells None seen (Few) /hpf Urine Bacteria None seen /hpf Urine Casts 0-2 <Phill Simpson MD - Last Filed: 04/28/25 19:11> Lab Results 04/28/25 04/28/25 Range/Units 17:49 17:59 WBC 14.7 H (4.5-10.0) K/mm3 RBC 5.49 (4.6-6.20) M/mm3 Hgb 14.4 (14.0-18.0) g/dL Hct 44.6 (42.0-52.0) % MCV 81.2 (80-100) fl MCH 26.2 (26-34) pg MCHC 32.3 (32-36) g/dl RDW 17.6 H (11.5-14.5) % Plt Count 216 (150-375) k/mm3 MPV 10.0 (7.4-10.4) fl Immature Gran % (Auto) 0.4 (0-0.5) % Neut % (Auto) 79.5 H (45.5-73.1) % Lymph % (Auto) 9.1 L (18.3-44.2) % [place] % (Auto) 9.2 H (2.6-8.5) % Eos % (Auto) 1.3 (0-4.4) % Baso % (Auto) 0.5 (0.2-1.2) % Lymph # (Auto) 1.34 (0.9-3.2) K/mm3 [place] # (Auto) 1.4 H (0.1-0.6) K/mm3 Eos # (Auto) 0.2 (0-0.3) K/mm3 Baso # (Auto) 0.1 (0.0-0.1) K/mm3 Abs Immat Gran (auto) 0.06 H (0.00-0.031) K/mm3 Absolute Neuts (auto) 11.7 H (1.3-6.7) K/mm3 Absolute Nucleated RBC 0.000 (0.0-0.012) K/mm3 Nucleated RBC % 0.0 (0.0-0.2) % Sodium 137 (137-145) mmol/L Potassium 3.8 (3.4-5.0) mmol/L Chloride 107 (98-107) mmol/L Carbon Dioxide 21 L (22-30) mmol/L Anion Gap 9 (4-12) mmol/L BUN 30 H D (9-20) mg/dL Creatinine 0.85 (0.7-1.3) mg/dL Estim Creat Clear Calc 57 ml/min Estimated GFR > 60 (59 - ) Glucose 115 H (65-110) mg/dL Lactic Acid 1.2 (0.7-2.0) mmol/L Calcium 9.7 (8.4-10.2) mg/dL Total Bilirubin 0.4 (0.2-1.3) mg/dL AST 31 (17-59) U/L ALT 15 (6-50) U/L Alkaline Phosphatase 89 (38-126) U/L Total Protein 7.4 (6.3-8.2) g/dL Albumin 4.3 (3.5-5.1) g/dL Lipase 65 (23-300) U/L Urine Color Yellow (Yellow) Urine Appearance Clear (Clear) Urine pH 5.5 (5.0-9.0) Ur Specific [place] 1.015 (1.001-1.035) Urine Protein Negative (Negative) mg/dL Urine Glucose (UA) Negative (Negative) mg/dL Urine Ketones Negative (Negative) mg/dL Ur Blood (Man) 1+ H (Negative) Urine Nitrate Negative (Negative) Urine Bilirubin Negative (Negative) Urine Urobilinogen 0.2 (<2.0) mg/dL Leukocyte Esterase Rfl Negative (Negative) SARATH/UL Urine RBC 11-20 H (0-2) /hpf Urine WBC 0-5 (0-3) /hpf Ur Squamous Epith Cells None seen (Few) /hpf Urine Bacteria None seen /hpf Urine Casts 0-2 <Bairon Hernandez DO - Last Filed: 04/29/25 00:14> Discharge Plan Discharge Clinical Impression: Acute urinary retention, Constipation <Phill Simpson MD - Last Filed: 04/28/25 19:11> Patient Disposition: Home <Phill Simpson MD - Last Filed: 04/28/25 19:11> Condition: Stable <Phill Simpson MD - Last Filed: 04/28/25 19:11> Instructions: Antibiotic Form, Constipation (ED), High Fiber Diet (ED), Urrutia Catheter Placement and Care (ED) <Phill Simpson MD - Last Filed: 04/28/25 19:11> Additional Instructions: Follow-up with your primary care physician in next 2 days for reassessment. Follow up with Urology in 1 week for a trial of void to determine if you can have the urinary catheter removed. Take the fiber supplements and MiraLax as needed for constipation. Rest and stay well-hydrated. Return immediately to the emergency department for any new or concerning symptoms especially vomiting, fever, difficulty breathing, chest pain, decreased urine output, bloody bowel movements, new or concerning or persistent or worsening or recurrent abdominal pain, or any emergent concerns for life, limb, [place]. <Phill Simpson MD - Last Filed: 04/28/25 19:11> Patient Language: [place] <Phill Simpson MD - Last Filed: 04/28/25 19:11> Prescriptions: New polyethylene glycol 3350 [Miralax] 17 gram/dose powder 17 g PO DAILY Qty: 119 0RF Metamucil 3.4 gram/5.4 gram powder 1 tbsp PO DAILY Qty: 660 0RF Rx Instructions: mix into at least 8 oz of water or juice before administering No Action magnesium 250 mg tablet 250 mg PO DAILY multivitamin [Multiple Vitamins] Tablet 1 tablet PO DAILY saw palmetto 500 mg capsule 500 mg PO BID Rx Instructions: give with food (meal/snack) cholecalciferol (vitamin D3) 25 mcg (1,000 unit) capsule 3,000 unit PO DAILY nortriptyline 25 mg capsule 50 mg PO DAILY travoprost [Travatan Z] 0.004 % drops 1 drop EACH EYE QPM Galzin 50 mg (zinc) capsule 50 mg PO DAILY Rx Instructions: swallow whole; do not chew/break/dissolve/open gabapentin 600 mg tablet 600 mg PO BID hydrocodone-acetaminophen 7.5-325 mg tablet 1 tablet PO Q6-8H dorzolamide-timolol 22.3-6.8 mg/mL drops 1 drp EACH EYE DAILY brimonidine 0.2 % drops 1 drp EACH EYE BID pantoprazole 20 mg tablet,delayed release (DR/EC) 20 mg PO DAILY nabumetone 750 mg tablet 750 mg PO BID Qty: 60 1RF Rx Instructions: with food hydrocortisone [Proctozone-HC] 2.5 % cream with perineal applicator 1 applic RECTAL BID PRN (Reason: hemorrhoids) Qty: 30 1RF alprazolam 1 mg tablet 1 mg PO HS PRN (Reason: anxiety) Qty: 30 0RF <Phill Simpson MD - Last Filed: 04/28/25 19:11> Follow-up/Referrals: Ryland Bryant MD [Physician, Urology] - 1 Week Miguel Irwin DO [Primary Care Provider, Internal Medicine] - 2 Days <Phill Simpson MD - Last Filed: 04/28/25 19:11> Time of Disposition: 00:14 <Phill Simpson MD - Last Filed: 04/28/25 19:11> 00:14 <Bairon Hernandez DO - Last Filed: 04/29/25 00:14> Sign Out Sign Out Data: Patient Sign Out occurred on 04/28/25 at 19:09. Patient's care was discussed, and care was transferred from Phill Simpson MD to Bairon Hernandez DO. <Phill Simpson MD - Last Filed: 04/28/25 19:11>
[2025-04-28 18:09] LABS: Add Urine Microscopic? YES; Appearance Urine Clear (Clear); Glucose Urine UA Negative (Negative); Leukocyte Esterase Ur Negative LEU/UL (Negative); Nitrate Urine Negative (Negative); Non Pathogenic Casts 0-2; Specific Grav Ur 1.015 (1.001-1.035)
[2025-04-28 18:20] LABS: Hematocrit 44.6 % (42.0-52.0); Hemoglobin 14.4 g/dL (14.0-18.0); Immature Granulocyte Percent A 0.4 % (0-0.5); Lymphocytes Absolute Auto 1.34 K/mm3 (0.9-3.2); Mean Corpuscular HGB Conc 32.3 g/dl (32-36); Mean Corpuscular Hemoglobin 26.2 pg (26-34); Mean Corpuscular Volume 81.2 fl (80-100); Nucleated Red Blood Cells Absolute Auto 0.000 K/mm3 (0.0-0.012); Nucleated Red Blood Cells Perc 0.0 % (0.0-0.2); Platelet Count Result 216 k/mm3 (150-375); Red Blood Count 5.49 M/mm3 (4.6-6.20); White Blood Count 14.7 K/mm3 (4.5-10.0)
[2025-04-28 18:31] LABS: Alanine Aminotransferase 15 U/L (6-50); Albumin Level 4.3 g/dL (3.5-5.1); Alkaline Phosphatase 89 U/L (38-126); Anion Gap 9 mmol/L (4-12); Aspartate Amino Transferase 31 U/L (17-59); Bilirubin,Total 0.4 mg/dL (0.2-1.3); Blood Urea Nitrogen 30 mg/dL (9-20); Calcium 9.7 mg/dL (8.4-10.2); Carbon Dioxide 21 mmol/L (22-30); Chloride 107 mmol/L (98-107); Estimated CRCL calculation 57 ml/min; Estimated Glomerular Filt Rate > 60; Glucose 115 mg/dL (65-110); Lipase 65 U/L (23-300); Potassium 3.8 mmol/L (3.4-5.0); Sodium 137 mmol/L (137-145); Total Protein 7.4 g/dL (6.3-8.2)
[2025-04-28] MEDS: SODIUM CHLORIDE 0.9% IV 1,000 ML 999 ML IV CONT ×2 (21:13)
[2025-04-29] VITALS: O2SAT 99
[2025-04-29 00:01] VITALS: BP 115/61; O2SAT 99
[2025-04-29 00:15] VITALS: O2SAT 98
[2025-04-29 00:16] VITALS: BP 145/87; O2SAT 100
== END 2025-04-29 01:26 | disposition home or self-care (01) ==
PROVIDERS: Emergency Medicine; Emergency Provider Student in an Organized Health Care Education/Training Program; PCP Internal Medicine
DX: R33.9 Retention of urine, unspecified (principal); K59.00 Constipation, unspecified; E78.5 Hyperlipidemia, unspecified; G89.4 Chronic pain syndrome; G47.33 Obstructive sleep apnea (adult) (pediatric); G62.9 Polyneuropathy, unspecified; Z96.1 Presence of intraocular lens; Z87.891 Personal history of nicotine dependence; Z98.42 Cataract extraction status, left eye; Z98.41 Cataract extraction status, right eye; K52.9 Noninfective gastroenteritis and colitis, unspecified; N30.90 Cystitis, unspecified without hematuria
CPT/HCPCS: 36415; 51702; 74177; 80053; 81001; 83605; 83690; 85025; 96360; 99284; J7030; Q9967